=== PATIENT | male | born 1995 | race Caucasian/White ===

== ENCOUNTER 2018-02-09 08:48 | Emergency (ER) | payer BC ==
[2018-02-09] MEDS ORDERED: NORMAL SALINE 1000 ML 1,000 ML IV ONE ×3 (09:23→18:37)
[2018-02-09] MEDS ORDERED: ONDANSETRON HCL INJ/PF 4 MG/2 ML SDV IV ONE (09:33)
[2018-02-09] MEDS ORDERED: MORPHINE SULFATE 10 MG/ML INJ IV ONE (09:33)
[2018-02-09] MEDS ORDERED: KETOROLAC TROMETHAMINE INJ/PF 30 MG/1 ML SDV IV ONE ×2 (09:33→16:11)
[2018-02-09] MEDS ORDERED: RINGERS SOLUTION,LACTATED 1,000 ML IV ONE (09:34)
--- NOTE | 2018-02-09 09:37 | ER Document Report ---
ED Medical Screen (RME) - General Chief Complaint: Sickle Cell Crisis Stated Complaint: BACK PAIN Time Seen by Provider: 02/09/18 09:22 TRAVEL OUTSIDE OF THE [place] IN LAST 30 DAYS: No - HPI Notes: 02/09/18 09:37 Patient coming in with recently moved from [place] has history sickle cell disease and has been receiving blood transfusion once a month received a transfusion in November now having lower back pain denies any chest pain patient states pain similar to his crisis in the past. Father is at bedside - Related Data Allergies/Adverse Reactions: No Known Allergies Allergy (Unverified 02/09/18 08:50) Past Medical History - Social History Chew tobacco use (# tins/day): No Frequency of alcohol use: None Drug Abuse: None Renal/ Medical History: Denies: Hx Peritoneal Dialysis Review of Systems - Review of Systems Constitutional: Other - Back pain sickle cell pain Physical Exam - Vital signs Vitals: Temp Pulse Resp BP Pulse Ox 98.7 F 116 H 20 137/63 H 93 02/09/18 08:54 02/09/18 08:54 02/09/18 08:54 02/09/18 08:54 02/09/18 08:54 - Respiratory Respiratory status: No respiratory distress Chest status: Nontender Breath sounds: Normal Chest palpation: Normal - Cardiovascular Rhythm: Regular Heart sounds: Normal auscultation Course - Vital Signs Vital signs: Temp Pulse Resp BP Pulse Ox 98.7 F 116 H 20 137/63 H 93 02/09/18 08:54 02/09/18 08:54 02/09/18 08:54 02/09/18 08:54 02/09/18 08:54
[2018-02-09 09:49] LABS: ABSOLUTE RETICS # 0.297 10^6/uL (0.028-0.122); HEMATOCRIT 16.1 % (37.9-51.0); RETICULOCYTE COUNT (AUTO) 16.76 % (0.66-2.85)
[2018-02-09 09:54] LABS: MEAN CORPUSCULAR HEMOGLOBIN 31.5 pg (27.0-33.4); MEAN CORPUSCULAR HGB CONC 34.8 g/dL (32.0-36.0); MEAN CORPUSCULAR VOLUME 91 fl (80-97); PLATELET COUNT 308 10^3/uL (150-450); RED BLOOD COUNT 1.78 10^6/uL (4.35-5.55); RED CELL DISTRIBUTION WIDTH 24.6 % (11.5-14.0)
[2018-02-09 10:01] LABS: ANION GAP 15 (5-19); BLOOD UREA NITROGEN 11 mg/dL (7-20); CALCIUM 9.4 mg/dL (8.4-10.2); CARBON DIOXIDE 24 mmol/L (22-30); CHLORIDE 101 mmol/L (98-107); GLUCOSE 137 mg/dL (75-110); POTASSIUM 4.9 mmol/L (3.6-5.0); SODIUM 139.5 mmol/L (137-145)
--- NOTE | 2018-02-09 10:14 | RADIOLOGY REPORT (SQ) ---
EXAM DESCRIPTION: CHEST SINGLE VIEW COMPLETED DATE/TIME: 02/09/2018 10:02 am REASON FOR STUDY: sob COMPARISON: None. EXAM PARAMETERS: NUMBER OF VIEWS: One view. TECHNIQUE: Single frontal radiographic view of the chest acquired. RADIATION DOSE: NA LIMITATIONS: None. FINDINGS: LUNGS AND PLEURA: No opacities, masses or pneumothorax. No pleural effusion. MEDIASTINUM AND HILAR STRUCTURES: No masses. Contour normal. HEART AND VASCULAR STRUCTURES: Mild cardiomegaly BONES: No acute findings. HARDWARE: None in the chest. OTHER: No other significant finding. IMPRESSION: Mild cardiomegaly. No acute infiltrates TECHNICAL DOCUMENTATION: JOB ID: [id number] [employer]- All Rights Reserved Reading location - IP/workstation name: [email or web address]
[2018-02-09 10:24] LABS: ABSOLUTE LYMPHOCYTES# (MANUAL) 3.1 10^3/uL (0.5-4.7); ABSOLUTE MONOCYTES # (MANUAL) 2.6 10^3/uL (0.1-1.4); ABSOLUTE NEUTROPHILS# (MANUAL) 22.5 10^3/uL (1.7-8.2); BAND NEUTROPHILS % (MANUAL) 4 % (3-5); BASOPHILS % (MANUAL) 0 % (0-2); EOSINOPHILS % (MANUAL) 1 % (0-6); LYMPHOCYTES % (MANUAL) 11 % (13-45); METAMYELOCYTES % (MANUAL) 2 % (0); MONOCYTES % (MANUAL) 9 % (3-13); MYELOCYTES % (MANUAL) 3 % (0); SEGMENTED NEUTROPHILS % (MAN) 70 % (42-78); TOTAL CELLS COUNTED 100
[2018-02-09 10:25] LABS: HEMOGLOBIN 5.6 g/dL (13.5-17.0); WHITE BLOOD COUNT 28.3 10^3/uL (4.0-10.5)
[2018-02-09 10:27] LABS: ANISOCYTOSIS 3+; HYPOCHROMASIA 2+; NUCLEATED RED BLOOD CELLS 26 /100 WBC (0); POIKILOCYTOSIS 3+; SICKLE RED CELLS 2+
[2018-02-09 10:28] LABS: OVALOCYTES SLIGHT; PLATELET COMMENT ADEQUATE; POLYCHROMASIA 3+; SCHISTOCYTES SLIGHT; TOXIC GRANULATION SLIGHT
[2018-02-09] MEDS ORDERED: HYDROMORPHONE HCL INJ/PF 2 MG/ML AMPULE IV ONE ×3 (10:40→19:52)
[2018-02-09] MEDS ORDERED: DIPHENHYDRAMINE HCL 50 MG/ML VIAL IV ONE (10:40)
[2018-02-09] MEDS ORDERED: NORMAL SALINE 250 ML IV PRN (10:41)
[2018-02-09 12:19] LABS: APPEARANCE,URINE CLEAR; BILIRUBIN,URINE NEGATIVE (NEGATIVE); COLOR,URINE YELLOW; GLUCOSE, URINE NEGATIVE (NEGATIVE); KETONES,URINE NEGATIVE (NEGATIVE); LEUKOCYTE ESTERASE,URINE NEGATIVE (NEGATIVE); NITRITE,URINE NEGATIVE (NEGATIVE); PROTEIN,URINE NEGATIVE (NEGATIVE); URINE SPECIFIC GRAVITY 1.012; UROBILINOGEN,URINE NEGATIVE mg/dL (<2.0)
[2018-02-09 12:35] LABS: URINE AMPHETAMINES SCREEN NEGATIVE; URINE BARBITURATES SCREEN NEGATIVE; URINE BENZODIAZEPINES SCREEN NEGATIVE; URINE COCAINE SCREEN NEGATIVE; URINE MARIJUANA (THC) SCREEN NEGATIVE; URINE METHADONE SCREEN NEGATIVE; URINE PHENCYCLIDINE SCREEN NEGATIVE
--- NOTE | 2018-02-09 13:50 | PDOC CONSULTATION ---
Consultation Consult Date: 02/09/18 Attending physician:: susana History of Present Illness History of Present Illness: VIBHA ROWLAND is a 22 year old male who developed acute back pain and right knee pain last night. He has a known sickle cell disease. He says he gets monthly transfusion and had an acute crisis in [place] in November requiring an emergent apharesis. In the ER, he was noted to have a Hb of 5.6. He is in severe distress from severe back pain and knee pain. He is hypoxic saturating at 84% on room air improving to only 91-92% on 5 lpm of O2. Past Medical History Hematology: Reports: Sickle Cell Disease Social History Smoking Status: Never Smoker Family History Parental Family History Reviewed: Yes - no premature CAD Children Family History Reviewed: No Sibling(s) Family History Reviewed.: No Medication/Allergy Home Medications: Acetaminophen [Tylenol Extra Strength 500 mg Tablet] 1 tab PO Q8 PRN 02/09/18 Amoxicillin 250 mg PO BID 02/09/18 Cephalexin [Cephalexin 500 MG Capsule] 1 cap PO BID 02/09/18 Hydrocodone/Acetaminophen [Hydrocodone-Acetamin 10-325 mg] 1 mg PO PRN PRN 02/09 Ibuprofen 600 mg PO PRN PRN 02/09/18 Allergies/Adverse Reactions: No Known Allergies Allergy (Unverified 02/09/18 08:50) Review of Systems All systems: reviewed and no additional remarkable complaints except as stated - as mentioned in HPI Physical Exam Vital Signs: Temp Pulse Resp BP Pulse Ox 98.7 F 116 H 20 137/63 H 93 02/09/18 08:54 02/09/18 08:54 02/09/18 08:54 02/09/18 08:54 02/09/18 08:54 Intake & Output 02/08/18 02/09/18 02/10/18 06:59 06:59 06:59 Intake Total 1000 Balance 1000 Weight 127 lb 6.835 oz General appearance: PRESENT: severe distress Head exam: PRESENT: atraumatic, normocephalic Eye exam: PRESENT: conjunctiva pink, EOMI, PERRLA. ABSENT: scleral icterus Ear exam: PRESENT: normal external ear exam Mouth exam: PRESENT: moist, tongue midline Neck exam: ABSENT: carotid bruit, JVD, lymphadenopathy, thyromegaly Respiratory exam: PRESENT: clear to auscultation oxana. ABSENT: rales, rhonchi, wheezes Cardiovascular exam: PRESENT: RRR, tachycardia. ABSENT: diastolic murmur, rubs , systolic murmur Pulses: PRESENT: normal dorsalis pedis pul GI/Abdominal exam: PRESENT: normal bowel sounds, soft. ABSENT: distended, guarding, mass, organolmegaly, rebound, tenderness Rectal exam: PRESENT: deferred Musculoskeletal exam: PRESENT: tenderness - tenderness and swelling of right knee joint Neurological exam: PRESENT: alert, awake, oriented to person, oriented to place , oriented to time, oriented to situation, CN II-XII grossly intact. ABSENT: motor sensory deficit Results Laboratory Results: 02/09/18 09:35 02/09/18 09:35 02/09/18 02/09/18 02/09/18 09:35 09:35 09:35 WBC 28.3 H RBC 1.78 L Hgb 5.6 L Hct 16.1 L MCV 91 MCH 31.5 MCHC 34.8 RDW 24.6 H Plt Count 308 Seg Neutrophils % Not Reportable Lymphocytes % Not Reportable Monocytes % Not Reportable Eosinophils % Not Reportable Basophils % Not Reportable Absolute Neutrophils Not Reportable Absolute Lymphocytes Not Reportable Absolute Monocytes Not Reportable Absolute Eosinophils Not Reportable Absolute Basophils Not Reportable Retic Count (auto) 16.76 H Absolute Retic 0.297 H Sodium 139.5 Potassium 4.9 Chloride 101 Carbon Dioxide 24 Anion Gap 15 BUN 11 Creatinine 0.66 Est GFR ( Amer) > 60 Est GFR (Non-Af Amer) > 60 Glucose 137 H Calcium 9.4 Urine Color Urine Appearance Urine pH Ur Specific [place] Urine Protein Urine Glucose (UA) Urine Ketones Urine Blood Urine Nitrite Ur Leukocyte Esterase Urine WBC (Auto) Urine RBC (Auto) Blood Type O POSITIVE Antibody Screen NEGATIVE 02/09/18 11:53 WBC RBC Hgb Hct MCV MCH MCHC RDW Plt Count Seg Neutrophils % Lymphocytes % Monocytes % Eosinophils % Basophils % Absolute Neutrophils Absolute Lymphocytes Absolute Monocytes Absolute Eosinophils Absolute Basophils Retic Count (auto) Absolute Retic Sodium Potassium Chloride Carbon Dioxide Anion Gap BUN Creatinine Est GFR ( Amer) Est GFR (Non-Af Amer) Glucose Calcium Urine Color YELLOW Urine Appearance CLEAR Urine pH 5.0 Ur Specific [place] 1.012 Urine Protein NEGATIVE Urine Glucose (UA) NEGATIVE Urine Ketones NEGATIVE Urine Blood MODERATE H Urine Nitrite NEGATIVE Ur Leukocyte Esterase NEGATIVE Urine WBC (Auto) 1 Urine RBC (Auto) 2 Blood Type Antibody Screen Impressions: Chest X-Ray 02/09/18 09:37 IMPRESSION: Mild cardiomegaly. No acute infiltrates Assessment & Plan - Diagnosis (1) Hyperhemolytic sickle cell crisis Is this a current diagnosis for this admission?: Yes Plan: Patient is in hyperhemolytic crisis. Hemoglobin of 5.6. Unknown baseline. Patient is complaining of severe back pain and right knee pain. He is hypoxic at 84% on room air. Discussed in length with Dr. Israel. Hold blood transfusion at this time. Patient requires emergent apharesis due to hypoxia. Patient did say he had an emergent apharesis done in [place] in November. Give 2 mg of dilaudid and another liter of fluid bolus. Patient needs immediate transfer to [facility] for apharesis. - Time Time Spent: 30 to 50 Minutes
--- NOTE | 2018-02-09 14:33 | ER Document Report ---
ED General Pain - General Chief Complaint: Sickle Cell Crisis Stated Complaint: BACK PAIN Time Seen by Provider: 02/09/18 09:22 Notes: Patient with a history of sickle cell disease who is complaining of severe pain throughout his entire back and in all of his joints, especially his knees, that started last night. Patient recently moved here (in November) from [place] where he says he used to get a monthly transfusion of blood. Patient denies any recent illness. Denies sore throat, cough, chest congestion, nausea or vomiting or diarrhea, or any fevers. Patient has been on prophylactic amoxicillin 250 mg twice a day for most of his life. He also has apparently a residual pills of some cephalexin 500 mg that he supposed to take 2 twice a day for 7 days. Not sure what that is for as the patient has not seen a doctor recently. His medications also include ibuprofen 600 mg and hydrocodone 10/325 as well as plain Tylenol. Patient says he is not on folate or hydroxyurea because they do not work. Patient has had a partial splenectomy. TRAVEL OUTSIDE OF THE [place] IN LAST 30 DAYS: No - Related Data Allergies/Adverse Reactions: No Known Allergies Allergy (Unverified 02/09/18 08:50) Past Medical History - Social History Smoking Status: Never Smoker Chew tobacco use (# tins/day): No Frequency of alcohol use: None Drug Abuse: None Family History: Reviewed & Not Pertinent Patient has suicidal ideation: No Patient has homicidal ideation: No - Medical History Medical History: Other - Sickle cell disease. Past Surgical History: 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 Review of Systems - Review of Systems Notes: REVIEW OF SYSTEMS: CONSTITUTIONAL : Denies fever. Complains of generalized pain especially of the knees. EENT: Denies eye, ear, nose or mouth or throat pain or other symptoms. CARDIOVASCULAR: Denies chest pain except as part of his overall generalized pain. RESPIRATORY: Denies cough, chest congestion, or shortness of breath. GASTROINTESTINAL: Denies abdominal pain or nausea, vomiting, or diarrhea. GENITOURINARY: Denies difficulty or painful urinating, urinary frequency, blood in urine. MUSCULOSKELETAL: See HPI. SKIN: Denies rash or skin lesions. NEUROLOGICAL: Denies LOC or altered mental status. Denies headache. Denies sensory loss or motor deficits. ALL OTHER SYSTEMS REVIEWED AND NEGATIVE. Physical Exam - Vital signs Vitals: Temp Pulse Resp BP Pulse Ox 98.7 F 116 H 20 137/63 H 93 02/09/18 08:54 02/09/18 08:54 02/09/18 08:54 02/09/18 08:54 02/09/18 08:54 Interpretation: Normal - Notes Notes: PHYSICAL EXAMINATION: GENERAL: Appears to be uncomfortable.. HEAD: Atraumatic, normocephalic. EYES: Pupils equal round and reactive to light, extraocular movements intact. ENT: oropharynx clear without exudates. Moist mucous membranes. NECK: Normal range of motion, supple. LUNGS: Breath sounds clear and equal bilaterally. HEART: Regular rate and rhythm without murmurs. ABDOMEN: Soft, nontender. No guarding or rebound. No masses. BACK: Minimal tenderness throughout entire back. EXTREMITIES: Painful to move any of the joints. No abnormal swelling noted, however. NEUROLOGICAL: Normal speech. Normal sensory, motor, and reflex exams. Awake , alert, and oriented x3. PSYCH: Normal mood, normal affect. SKIN: Warm, dry, no rashes. Course - Re-evaluation Re-evalutation: 02/09/18 14:45 Patient's hemoglobin is 5.6. I had the patient typed and crossmatched to give a couple of units of packed cells. Room air O2 sat 84%. Spoke with hospitalist about admitting patient. Hospitalist consulted with forms builder who believe that the patient is experiencing a hemolytic crisis and that he should be transferred to a major treatment center with electrophoresis capabilities. Patient has been given sufficient pain medications to relieve his pain. Calls are being placed to [facility] to try to transfer patient there. Spoke with a Dr. Hercules and later a Dr. Banegas who both accepted the patient, pending bed assignment. 02/09/18 18:29 About 15 or 20 minutes ago, nurse made me aware the patient was more tachycardic and was diaphoretic. I went in the room and the patient is awake, anxious, holding his nonrebreather mask a few inches away from his mouth. He was, in fact, diaphoretic. He had just been spitting up. Listen to his lungs and they are clear. Abdomen is soft and nontender. Nurse says his heart rate had been up in the 140s, but is currently 118, by me at the bedside. O2 sat remains in the mid 90s. He seemed to settle down and the diaphoresis subsided. Have asked the nurse to give him another liter of saline. Said he would like to try to drink some juice. Transport is scheduled for 7:00. 02/09/18 18:46 Looks better. Heart rate down to 96. Blood pressure good. O2 sat in the upper 90s and patient is resting comfortably. 02/09/18 19:54 Once again complaining of pain. Another 1 mg of Dilaudid has been ordered IV. Vital signs recently showed a blood pressure 120/69, heart rate was 80, and O2 sat was 98%. Not diaphoretic. - Vital Signs Vital signs: Temp Pulse Resp BP Pulse Ox 98.7 F 105 H 39 H 168/67 H 90 L 02/09/18 08:54 02/09/18 14:09 02/09/18 18:13 02/09/18 18:13 02/09/18 18:13 - Laboratory Result Diagrams: 02/09/18 09:35 02/09/18 09:35 Laboratory results interpreted by me: 02/09/18 02/09/18 02/09/18 09:35 09:35 09:35 WBC 28.3 H RBC 1.78 L Hgb 5.6 L Hct 16.1 L RDW 24.6 H Lymphocytes % (Manual) 11 L Metamyelocytes % 2 H Myelocytes % 3 H Abs Neuts (Manual) 22.5 H Abs Monocytes (Manual) 2.6 H Retic Count (auto) 16.76 H Absolute Retic 0.297 H Glucose 137 H Total Bilirubin Direct Bilirubin AST Lactate Dehydrogenase 701 H Urine Blood Crossmatch See Detail 02/09/18 02/09/18 09:35 11:53 WBC RBC Hgb Hct RDW Lymphocytes % (Manual) Metamyelocytes % Myelocytes % Abs Neuts (Manual) Abs Monocytes (Manual) Retic Count (auto) Absolute Retic Glucose Total Bilirubin 4.5 H Direct Bilirubin 1.3 H AST 77 H Lactate Dehydrogenase Urine Blood MODERATE H Crossmatch - Diagnostic Test Radiology results interpreted by me: 02/09/18 14:52 Chest x-ray shows mild cardiomegaly. Otherwise, chest x-ray is normal. Discharge - Discharge Clinical Impression: Sickle cell disease, Sickle cell pain crisis Condition: Stable Disposition: [facility]
[2018-02-09 16:54] LABS: ALANINE AMINOTRANSFERASE 34 U/L (21-72); ALBUMIN 4.7 g/dL (3.5-5.0); ALKALINE PHOSPHATASE 94 U/L (38-126); ASPARTATE AMINO TRANSFERASE 77 U/L (17-59); BILIRUBIN,DIRECT 1.3 mg/dL (0.0-0.4); BILIRUBIN,TOTAL 4.5 mg/dL (0.2-1.3); TOTAL PROTEIN 7.9 g/dL (6.3-8.2)
[2018-02-09 18:38] VITALS: BP 168/67
[2018-02-10 09:36] LABS: PATH REVIEW PATHOLOGIST REVIEWED
== END 2018-02-09 20:15 | disposition short-term general hospital (02) ==
LOC: ER 08:48
DX: D57.00 Hb-SS disease with crisis, unspecified (principal); M54.9 Dorsalgia, unspecified
CPT/HCPCS: 96376; 99285; 96361; 96374; 96375; 86900; 86901; 36415; 86850; 83615; 85025; 85045; 80076; 80048; 81001; 80307; 86920; 86902 ×4; 71045; J1200; J1885; J2270; J1170; J2405; J7030; J7120

== ENCOUNTER 2018-07-20 22:49 | Inpatient (IN) | payer BC, OTHER ==
[2018-07-20] MEDS ORDERED: HYDROMORPHONE HCL INJ/PF 2 MG/ML AMPULE IV ONE (23:58)
--- NOTE | 2018-07-21 00:01 | ER Document Report ---
ED General - General Chief Complaint: Sickle Cell Crisis Stated Complaint: SICKLE CELL CRISIS Time Seen by Provider: 07/20/18 23:51 Notes: Patient is a very pleasant 23-year-old male with a history of sickle cell disease who presents with complaint of severe pain in his back and going up the spine and into his neck. No weakness or numbness into extremities. He said he started have a little bit pain going into his chest. No difficulty breathing. No abdominal pain. No dysuria. No fevers. Took an oxycodone at home which did not help his pain and his pain continued to worsen and therefore he came to the ER. He does have history of acute chest syndrome last year. At that time he was seen here and then transferred. Says this does not really feel like that at this time. He had a partial splenectomy. He still has his gallbladder. No other abdominal surgeries. He is followed by cancer clinic in [place]. TRAVEL OUTSIDE OF THE [place] IN LAST 30 DAYS: No - Related Data Allergies/Adverse Reactions: No Known Allergies Allergy (Unverified 02/09/18 08:50) Past Medical History - Social History Smoking Status: Never Smoker Frequency of alcohol use: None Drug Abuse: None Family History: Reviewed & Not Pertinent Renal/ Medical History: Denies: Hx Peritoneal Dialysis Past Surgical History: 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 Review of Systems - Review of Systems Notes: My Normal Review Basic REVIEW OF SYSTEMS: CONSTITUTIONAL : Denies fever, chills, or sweats. Denies recent illness. EENT: Denies eye, ear, throat, or mouth pain or symptoms. Denies nasal or sinus congestion. CARDIOVASCULAR: Mild chest pain. RESPIRATORY: Denies cough, cold, or chest congestion. Denies shortness of breath, difficulty breathing, or wheezing. GASTROINTESTINAL: Denies abdominal pain. Denies nausea, vomiting, or diarrhea. GENITOURINARY: Denies difficulty urinating, painful urination, burning, f requency, or blood in urine. MUSCULOSKELETAL: Severe back pain SKIN: Denies rash or skin lesions. HEMATOLOGIC : Sickle cell disease NEUROLOGICAL: Denies altered mental status or loss of consciousness. Denies headache. Denies weakness or paralysis or loss of use of either side. Denies problems with gait or speech. Denies sensory or motor loss. ALL OTHER SYSTEMS REVIEWED AND NEGATIVE. Physical Exam - Vital signs Vitals: Temp Pulse Resp BP Pulse Ox 97.9 F 72 20 111/50 L 99 07/20/18 22:59 07/20/18 22:59 07/20/18 22:59 07/20/18 22:59 07/20/18 22:59 - Notes Notes: General Appearance: Well nourished, alert, cooperative, no acute distress, severe obvious discomfort. Vitals: reviewed, See vital signs table. Head: no swelling or tenderness to the head Eyes: PERRL, EOMI, Conjuctiva clear Mouth: No decreasd moisture Neck: Supple, no neck swelling Lungs: No wheezing, No rales, No rhonci, No accessory muscle use, good air exchange bilaterally. Heart: Normal rate, Regular rythm, No murmur, no rub Back: No redness or swelling to the back or neck. Abdomen: Normal BS, soft, No rigidity, No abdominal tenderness, No guarding, no rebound, no abdominal masses, no organomegaly Extremities: strength 5/5 in all extremities, good pulses in all extremities, no swelling or tenderness in the extremities, no edema. Skin: warm, dry, appropriate color, no rash Neuro: speech clear, oriented x 3, normal affect, responds appropriately to questions. Course - Re-evaluation Re-evalutation: 07/21/18 00:39 Patient still have a lot of pain after he was given 1 mg Dilaudid. I will give him another dose at that site higher dose. I have ordered IV fluids. Laboratory evaluation pending. 07/21/18 01:34 Reevaluation patient says his pain is improved even though he still looks like he is having some pain. He says that he does not want any further pain medicine at this time. Still waiting troponin come back. Says he still has some slight chest pain. Chest x-ray is normal appearing. 07/21/18 01:58 Patient stood up to go walk and urinate now he started having a lot of pain in his low back and. I will order him some fentanyl. I feel that he should be admitted due to his recurring pain. His hemoglobin is at his baseline is 7.1. White blood cell count a little bit elevated. Is not have a fever and I do not see a source of infection at this time. The only thing pending at this time is urinalysis. He did have a little bit chest pain therefore I did go forward the troponin which is negative. I will speak with hospitalist about potential for admission. She has no abdominal pain. I do not suspect acute chest syndrome as the patient has normal oxygenation with no obstructive process on the chest x- ray and no fever. 07/21/18 02:10 I did discuss case with Dr. Lock who agrees to evaluate the patient for admission. At this time patient's findings consistent with that of a acute pain crisis. I do not suspect acute chest syndrome as the patient has normal oxygenation with no infiltrative process on x-ray and no fever. Patient's abdomen is nontender. Vital signs are stable. Dictation of this chart was performed using voice recognition software; therefore, there may be some unintended grammatical errors. - Vital Signs Vital signs: Temp Pulse Resp BP Pulse Ox 97.9 F 72 20 111/50 L 99 07/20/18 22:59 07/20/18 22:59 07/20/18 22:59 07/20/18 22:59 07/20/18 22:59 - Laboratory Result Diagrams: 07/21/18 00:22 07/21/18 00:22 Laboratory results interpreted by me: 07/21/18 07/21/18 00:22 00:22 WBC 21.0 H RBC 2.15 L Hgb 7.1 L Hct 20.9 L RDW 30.0 H Plt Count 461 H Seg Neuts % (Manual) 89 H Band Neutrophils % 1 L Lymphocytes % (Manual) 4 L Abs Neuts (Manual) 18.9 H Retic Count (auto) 11.36 H Absolute Retic 0.244 H Sodium 134.4 L Glucose 113 H Total Bilirubin 3.5 H Direct Bilirubin 0.6 H Total Protein 8.5 H - EKG Interpretation by Me Additional EKG results interpreted by me: 07/21/18 00:51 EKG is reviewed and interpreted by me. EKG shows sinus rhythm with a rate of 78 bpm. Patient does have some mild ST segment elevation in leads V2 and V3 that is mostly concave up with some J-point elevation. No reciprocal ST segment depressions. This is more consistent with that of early repolarization abnormality. No old EKG available for comparison. OH interval, QRS duration, QT intervals are within normal range. Discharge - Discharge Clinical Impression: Sickle cell pain crisis Sickle cell anemia Qualifiers: Sickle-cell associated disorders: with unspecified crisis Qualified Code(s): D57.00 - Hb-SS disease with crisis, unspecified; D57.0 - Hb-SS disease with cr dimitry Condition: Stable Disposition: ADMITTED OBSERVATION Admitting Provider: Hayde (Hospitalist) Unit Admitted: Telemetry
[2018-07-21] MEDS ORDERED: HYDROMORPHONE HCL INJ/PF 2 MG/ML AMPULE IV ONE ×2 (00:39→07:15)
--- NOTE | 2018-07-21 00:52 | RADIOLOGY REPORT (SQ) ---
EXAM DESCRIPTION: XR CHEST 1 VIEW COMPLETED DATE/TME: 07/20/2018 23:58 CLINICAL HISTORY: 23 years, Male, sickle cell pain COMPARISON: None. NUMBER OF VIEWS: 1 TECHNIQUE: Portable chest LIMITATIONS: None. FINDINGS: Heart size normal. Lungs clear. No pneumothorax IMPRESSION: Negative chest copyright 2010 [employer]- All Rights Reserved
[2018-07-21] MEDS: NORMAL SALINE 1000 ML 1,000 ML IV PRN ×2 (00:55→02:18)
[2018-07-21 00:57] LABS: ABSOLUTE RETICS # 0.244 10^6/uL (0.028-0.122); HEMATOCRIT 20.9 % (37.9-51.0); MEAN CORPUSCULAR HEMOGLOBIN 33.2 pg (27.0-33.4); MEAN CORPUSCULAR HGB CONC 34.1 g/dL (32.0-36.0); MEAN CORPUSCULAR VOLUME 97 fl (80-97); PLATELET COUNT 461 10^3/uL (150-450); RED BLOOD COUNT 2.15 10^6/uL (4.35-5.55); RETICULOCYTE COUNT (AUTO) 11.36 % (0.66-2.85)
[2018-07-21 01:23] LABS: HEMOGLOBIN 7.1 g/dL (13.5-17.0)
[2018-07-21 01:25] LABS: ABSOLUTE LYMPHOCYTES# (MANUAL) 0.8 10^3/uL (0.5-4.7); ABSOLUTE MONOCYTES # (MANUAL) 1.3 10^3/uL (0.1-1.4); ABSOLUTE NEUTROPHILS# (MANUAL) 18.9 10^3/uL (1.7-8.2); BAND NEUTROPHILS % (MANUAL) 1 % (3-5); BASOPHILS % (MANUAL) 0 % (0-2); EOSINOPHILS % (MANUAL) 0 % (0-6); LYMPHOCYTES % (MANUAL) 4 % (13-45); MONOCYTES % (MANUAL) 6 % (3-13); SEGMENTED NEUTROPHILS % (MAN) 89 % (42-78); TOTAL CELLS COUNTED 100
[2018-07-21 01:27] LABS: ALANINE AMINOTRANSFERASE 25 U/L (21-72); ALKALINE PHOSPHATASE 107 U/L (38-126); ANION GAP 12 (5-19); ASPARTATE AMINO TRANSFERASE 41 U/L (17-59); BILIRUBIN,DIRECT 0.6 mg/dL (0.0-0.4); BILIRUBIN,TOTAL 3.5 mg/dL (0.2-1.3); BLOOD UREA NITROGEN 11 mg/dL (7-20); CALCIUM 9.8 mg/dL (8.4-10.2); CARBON DIOXIDE 22 mmol/L (22-30); CHLORIDE 100 mmol/L (98-107); GLUCOSE 113 mg/dL (75-110); POTASSIUM 4.2 mmol/L (3.6-5.0); SODIUM 134.4 mmol/L (137-145); TOTAL PROTEIN 8.5 g/dL (6.3-8.2)
[2018-07-21 01:28] LABS: ANISOCYTOSIS 4+; HYPOCHROMASIA 2+; POIKILOCYTOSIS 3+; POLYCHROMASIA 3+; SICKLE RED CELLS 2+; SPHEROCYTES 2+
[2018-07-21 01:29] LABS: NUCLEATED RED BLOOD CELLS 12 /100 WBC (0)
[2018-07-21 01:30] LABS: PLATELET COMMENT ADEQUATE
[2018-07-21] MEDS ORDERED: FENTANYL CITRATE INJ/PF 100 MCG/2 ML AMPUL IV ONE (01:58)
[2018-07-21 02:12] LABS: APPEARANCE,URINE CLEAR; BILIRUBIN,URINE NEGATIVE (NEGATIVE); COLOR,URINE YELLOW; GLUCOSE, URINE NEGATIVE (NEGATIVE); KETONES,URINE NEGATIVE (NEGATIVE); LEUKOCYTE ESTERASE,URINE NEGATIVE (NEGATIVE); NITRITE,URINE NEGATIVE (NEGATIVE); PROTEIN,URINE NEGATIVE (NEGATIVE); URINE SPECIFIC GRAVITY 1.011
[2018-07-21] MEDS ORDERED: HYDROMORPHONE HCL INJ/PF 2 MG/ML AMPULE IV PRN ×2 (03:12→03:15)
[2018-07-21] MEDS: HYDROMORPHONE HCL INJ/PF 2 MG/ML AMPULE IV PRN ×8 (03:30→20:36)
--- NOTE | 2018-07-21 03:58 | PDOC H&P ---
History of Present Illness Admission Date/PCP: 07/21/18 02:15 Patient complains of: back pain and milder chest pain History of Present Illness: VIBHA YANG is a 23 year old man with sickle cell disease who manages his pain at home, and has been having escalating pain recently. He works at [employer], his father thinks he gets dehydrated due to the strenuous work. Pain was not manageable at home but not as severe as it has gotten in the recent past and so he came to [facility]. He goes to [facility] where his respiratory therapist is when his pain is more severe and when he has significant chest pain. In the ED is hgb is found to be at his baseline (about 7), his CXR is not concerning, trop is negative, pain is improving with IV opiates. He is admitted to the hospitalists with SCD and acute pain episode. Past Medical History Cardiac Medical History: Denies: Coronary Artery Disease, Myocardial Infarction Pulmonary Medical History: Denies: Asthma, Chronic Obstructive Pulmonary Disease (COPD), Respiratory Failure EENT Medical History: Denies: None Neurological Medical History: Denies: Multiple Sclerosis, Seizures Endocrine Medical History: Denies: Diabetes Mellitus Type 2, Obesity Renal/ Medical History: Denies: Chronic Kidney Disease Malignancy Medical History: Reports: None GI Medical History: Denies: Peptic Ulcer Disease Musculoskeltal Medical History: Denies: Arthritis, Fibromyalgia Skin Medical History: Denies: Eczema, Psoriasis Psychiatric Medical History: Denies: Alcohol Dependency, Depression, General Anxiety Disorder, Substance Abuse, Tobacco Dependency Traumatic Medical History: Reports: None Hematology: Reports: Sickle Cell Disease Infectious Medical History: Reports: None Past Surgical History Past Surgical History: 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 Social History Information Source: Patient, Parent Lives with: Parents Smoking Status: Never Smoker Frequency of Alcohol Use: None Hx Recreational Drug Use: No Hx Prescription Drug Abuse: No Past Social History Note: Recently moved from living with his mom in [place], [place] to [facility] to live with his dad. Works at [employer] locally. - Advance Directive Resuscitation Status: Full Code Surrogate healthcare decision maker:: father Jayce Yang is health care proxy, cell: [phone] Family History Parental Family History Reviewed: Yes - mom and dad have sickel cell trait Children Family History Reviewed: NA Sibling(s) Family History Reviewed.: Yes - sister with SCD Medication/Allergy Home Medications: Acetaminophen [Tylenol Extra Strength 500 mg Tablet] 1 tab PO Q8 PRN 02/09/18 Amoxicillin 250 mg PO BID 02/09/18 Cephalexin [Cephalexin 500 MG Capsule] 1 cap PO BID 02/09/18 Hydrocodone/Acetaminophen [Hydrocodone-Acetamin 10-325 mg] 1 mg PO PRN PRN 01/17 09/02 Ibuprofen 600 mg PO PRN PRN 02/09/18 Allergies/Adverse Reactions: No Known Allergies Allergy (Unverified 02/09/18 08:50) Review of Systems ROS unobtainable: Other - pt had just received fentanyl 50 mcg when i was evalu ating him and was dozing off, I couldnt collect full ROS Constitutional: ABSENT: fever(s) Nose, Mouth, and Throat: ABSENT: headache(s), mouth pain Cardiovascular: PRESENT: chest pain. ABSENT: dyspnea on exertion, edema Respiratory: ABSENT: dyspnea, hemoptysis Gastrointestinal: ABSENT: abdominal pain, diarrhea, nausea, vomiting Genitourinary: ABSENT: difficulty urinating, dysuria Musculoskeletal: PRESENT: back pain. ABSENT: deformity, joint swelling Integumentary: ABSENT: lesions, pruritus, wounds Neurological: ABSENT: confusion, focal weakness, frequent falls Psychiatric: ABSENT: anxiety, depression Hematologic/Lymphatic: ABSENT: easy bleeding Physical Exam Vital Signs: Temp Pulse Resp BP Pulse Ox 97.9 F 72 20 113/53 L 99 07/20/18 22:59 07/20/18 22:59 07/21/18 02:01 07/21/18 02:00 07/21/18 02:01 Intake & Output 07/19/18 07/20/18 07/21/18 06:59 06:59 06:59 Intake Total 1999 Balance 1999 Weight 58.9 kg General appearance: PRESENT: cooperative, mild distress Head exam: PRESENT: atraumatic, normocephalic Eye exam: ABSENT: conjunctival injection, scleral icterus Ear exam: PRESENT: normal external ear exam Mouth exam: PRESENT: dry mucosa Neck exam: ABSENT: tenderness Respiratory exam: PRESENT: clear to auscultation oxana, unlabored. ABSENT: accessory muscle use, rales, retraction, rhonchi, wheezes Cardiovascular exam: PRESENT: RRR. ABSENT: systolic murmur Pulses: PRESENT: normal radial pulses, normal dorsalis pedis pul GI/Abdominal exam: PRESENT: normal bowel sounds, soft. ABSENT: distended, tenderness Rectal exam: PRESENT: deferred Gentrourinary exam: ABSENT: indwelling catheter Musculoskeletal exam: PRESENT: normal inspection. ABSENT: deformity Neurological exam: PRESENT: oriented to person, oriented to place, oriented to situation, CN II-XII grossly intact. ABSENT: altered Psychiatric exam: ABSENT: anxious, depressed Skin exam: PRESENT: dry, intact, warm Results Laboratory Results: 07/21/18 00:22 07/21/18 00:22 07/21/18 07/21/18 07/21/18 00:22 00:22 02:00 WBC 21.0 H RBC 2.15 L Hgb 7.1 L Hct 20.9 L MCV 97 MCH 33.2 MCHC 34.1 RDW 30.0 H Plt Count 461 H Seg Neutrophils % Not Reportable Lymphocytes % Not Reportable Monocytes % Not Reportable Eosinophils % Not Reportable Basophils % Not Reportable Absolute Neutrophils Not Reportable Absolute Lymphocytes Not Reportable Absolute Monocytes Not Reportable Absolute Eosinophils Not Reportable Absolute Basophils Not Reportable Retic Count (auto) 11.36 H Absolute Retic 0.244 H Sodium 134.4 L Potassium 4.2 Chloride 100 Carbon Dioxide 22 Anion Gap 12 BUN 11 Creatinine 0.64 Est GFR ( Amer) > 60 Est GFR (Non-Af Amer) > 60 Glucose 113 H Calcium 9.8 Total Bilirubin 3.5 H AST 41 ALT 25 Alkaline Phosphatase 107 Total Protein 8.5 H Albumin 5.0 Urine Color YELLOW Urine Appearance CLEAR Urine pH 6.0 Ur Specific [place] 1.011 Urine Protein NEGATIVE Urine Glucose (UA) NEGATIVE Urine Ketones NEGATIVE Urine Blood SMALL H Urine Nitrite NEGATIVE Ur Leukocyte Esterase NEGATIVE Urine WBC (Auto) 1 Urine RBC (Auto) 1 07/21/18 00:00 Troponin I < 0.012 Impressions: Chest X-Ray 07/20/18 23:58 IMPRESSION: Negative chest copyright 2011 [employer]- All Rights Reserved Assessment and Plan - Diagnosis (1) Sickle cell pain crisis Is this a current diagnosis for this admission?: Yes Plan: patient does not know his pain med doses and cant remember all of the meds he takes, he tells me he takes 2 pills of hydroxyurea daily (prob 2 x 500 mg tabls) so I ordered 1000 daily. . We will await med rec for remainder of meds. He is post partial splenectomy and prob on antibiotics. He has gotten dilaudid 1 mg x 1 and that was not very effective, then got dilaudid 1.5 mg x 1 and that was more effective. He then got fentanyl 50 mcg x 1 that was effective for just a few minutes. I have ordered dilaudid 1.5 mg q 2 hrs prn pain and we can uptitrate if needed. Has mild CP, trop x 1 is neg and one ordered for with am labs to follow closely. He will be on tele. (2) Dehydration Is this a current diagnosis for this admission?: Yes Plan: Got 2 L NS in ED, now making urine, lips and mucous membranes dry, will start 1/2 NS at 100mL per hour and encourage good po intake. (3) Sickle cell anemia Qualifiers: Sickle-cell associated disorders: with unspecified crisis Qualified Code(s): D57.00 - Hb-SS disease with crisis, unspecified; D57.0 - Hb-SS disease with crisis Is this a current diagnosis for this admission?: Yes Plan: Hgb baseline at 7. Monitor. Hydroxyurea started. No transfusion indicated now. DVT prophylaxis started. (4) Hypoxemia Is this a current diagnosis for this admission?: Yes Plan: after receiving fentanyl he was slightly hypoxemic in high 80's, with deep breaths on 2L he=is sats recovered. I have ordered continuous pulse oximetry and placed him on the IMCU [place] for close monitoring. - Time Time Spent with patient: 35 or more minutes Anticipated discharge: Home - Inpatient Certification Based on my medical assessment, after consideration of the patient's comorbidities, presenting symptoms, or acuity I expect that the services needed warrant INPATIENT care.: Yes I certify that my determination is in accordance with my understanding of Medicare's requirements for reasonable and necessary INPATIENT services [42 CFR 412.3e].: Yes Medical Necessity: Failure to Improve With Outpatient Therapy, Significant Comorbidiites Make Outpatient Treatment Too Risky, Need Close Monitoring Due to Risk of Patient Decompensation, Need For IV Fluids, Need For Continuous Telemetry Monitoring, Need for Pain Control, Risk of Complication if Not Cared For in Hospital
[2018-07-21] MEDS: 1/2 NORMAL SALINE 1,000 ML IV PRN ×3 (04:37→20:46)
[2018-07-21] MEDS: HEPARIN SOD (PORCINE) 5,000 UNIT/ML 1 ML SYRINGE SUBCUT SCH ×4 (05:37→21:38)
--- NOTE | 2018-07-21 07:49 | EKG REPORT ---
SEVERITY:- ABNORMAL ECG - SINUS RHYTHM PROBABLE LEFT ATRIAL ABNORMALITY LEFT VENTRICULAR HYPERTROPHY INFERIOR Q WAVES, PROBABLY NORMAL VARIATION ST ELEV, PROBABLE NORMAL EARLY REPOL PATTERN : Confirmed by: Percy Murphy MD 21-Jul-2018 07:48:15
[2018-07-21] MEDS: HYDROXYUREA 500 MG CAPSULE PO SCH (09:06)
[2018-07-21 14:06] LABS: APPEARANCE,URINE CLEAR; BILIRUBIN,URINE NEGATIVE (NEGATIVE); COLOR,URINE YELLOW; GLUCOSE, URINE NEGATIVE (NEGATIVE); KETONES,URINE NEGATIVE (NEGATIVE); LEUKOCYTE ESTERASE,URINE NEGATIVE (NEGATIVE); NITRITE,URINE NEGATIVE (NEGATIVE); PROTEIN,URINE NEGATIVE (NEGATIVE); UROBILINOGEN,URINE NEGATIVE mg/dL (<2.0)
--- NOTE | 2018-07-21 16:23 | Progress Note ---
Provider Note Provider Note: 23 y.o. M with a [facility] sickle cell disease. Normally treated/followed by bean viner and provided. Patient presented with chest pain. EKG normal. Laboratory studies revealed leukocytosis (WBC 21), anemia (Hgb 7.1 patient's baseline), elevated reticulocyte count and absolute reticulocyte count. Agree with nocturnal hospitalist plan. 1. Sickle cell pain crisis: dilaudid 2mg IV q2h PRN. IV hydration. Supplemental oxygen via nasal cannula. 2. Dehydration: continuous IV 3. Sickle cell anemia: Hgb 7.1. This is patient's baseline. Continue home dose hydroxyurea 4. Hypoxemia: Slightly hypoxic after receiving IV narcotics. Continue supplemental oxygen via nasal cannula for SPO2>92%
[2018-07-22] MEDS: HYDROMORPHONE HCL INJ/PF 2 MG/ML AMPULE IV PRN ×6 (01:05→16:21)
[2018-07-22] MEDS: HEPARIN SOD (PORCINE) 5,000 UNIT/ML 1 ML SYRINGE SUBCUT SCH ×3 (05:51→21:13)
[2018-07-22 06:11] LABS: HEMATOCRIT 15.9 % (37.9-51.0); MEAN CORPUSCULAR HEMOGLOBIN 34.1 pg (27.0-33.4); MEAN CORPUSCULAR HGB CONC 35.5 g/dL (32.0-36.0); MEAN CORPUSCULAR VOLUME 96 fl (80-97); PLATELET COUNT 303 10^3/uL (150-450); RED BLOOD COUNT 1.66 10^6/uL (4.35-5.55); RED CELL DISTRIBUTION WIDTH 28.8 % (11.5-14.0)
[2018-07-22 06:25] LABS: ALANINE AMINOTRANSFERASE 29 U/L (21-72); ALBUMIN 3.7 g/dL (3.5-5.0); ALKALINE PHOSPHATASE 113 U/L (38-126); ANION GAP 11 (5-19); ASPARTATE AMINO TRANSFERASE 68 U/L (17-59); BILIRUBIN,TOTAL 5.2 mg/dL (0.2-1.3); BLOOD UREA NITROGEN 9 mg/dL (7-20); CALCIUM 8.7 mg/dL (8.4-10.2); CARBON DIOXIDE 23 mmol/L (22-30); CHLORIDE 97 mmol/L (98-107); GLUCOSE 105 mg/dL (75-110); POTASSIUM 4.1 mmol/L (3.6-5.0); SODIUM 130.6 mmol/L (137-145); TOTAL PROTEIN 6.8 g/dL (6.3-8.2)
[2018-07-22 06:42] LABS: HEMOGLOBIN 5.6 g/dL (13.5-17.0)
[2018-07-22 06:46] LABS: WHITE BLOOD COUNT 19.7 10^3/uL (4.0-10.5)
[2018-07-22] MEDS: 1/2 NORMAL SALINE 1,000 ML IV PRN ×2 (07:36→21:04)
[2018-07-22] MEDS ORDERED: NORMAL SALINE 250 ML IV PRN ×2 (08:08)
[2018-07-22] MEDS: HYDROXYUREA 500 MG CAPSULE PO SCH (10:11)
[2018-07-22] MEDS ORDERED: FENTANYL 50 MCG/HR PATCH.TD72 TD SCH (11:00)
--- NOTE | 2018-07-22 19:35 | PDOC PROGRESS REPORT ---
Subjective Progress Note for:: 07/22/18 Subjective:: 23 y.o. M with a H sickle cell disease admitted to [facility] for sickle cell crisis, his presenting complaint was chest pain. Originally told admitting hospitalist that he is treated/followed by explosive operator bomb at [facility], but this information seems to be false. Today, the patient reported he does not have a explosive operator bomb and he usually travels around "to any of the local hospitals" when he is in crisis. The patient was seen this morning on rounds, he is resting comfortably in bed on nasal cannula. He is arousable but quickly falls asleep multiple times during the interview. The patient states he no longer has chest pain, that it is now in his forearms and lower legs. Pain is reproduced with palpation. LCTA. S1S2. No joint deformities. No peripheral edema. Hgb 5.5 today, patient's baseline is 7.0. Plan for transfusion today. Nursing staff reports the patient becomes briefly hypoxic when given his IV dilaudid 2mg. Will change regimen to include a fentanyl patch and decrease PRN dilaudid. Reason For Visit: SICKLE CELL DX WITH ACUTE PAIN EPISODE Physical Exam Vital Signs: Temp Pulse Resp BP Pulse Ox 99.1 F 113 H 20 119/62 97 07/22/18 18:42 07/22/18 18:42 07/22/18 18:42 07/22/18 18:42 07/22/18 18:42 Pulse Oximeter Continuous Start: 07/21/18 03:17 Freq: RTQ4 Status: Active Protocol: Document 07/22/18 16:00 [facility] (Rec: 07/22/18 17:00 [facility] [id number]) Pulse Oximetry Assessment Oxygen Saturation (92-100) 96 Oxygen Flow Rate (L/min) 3 Oxygen Delivery Method Nasal Cannula Fraction of Inspired Oxygen (FIO2) 32 Equipment Usage Equipment in Use Continuous SpO2 Machine # 8 Intake & Output 07/21/18 07/22/18 07/23/18 06:59 06:59 06:59 Intake Total 1999 9839 0736 Output Total 4318 360 Balance 1999 6788 962 Weight 63.1 kg 60.5 kg General appearance: PRESENT: no acute distress, thin, well-developed, well- nourished Head exam: PRESENT: atraumatic, normocephalic Eye exam: PRESENT: conjunctiva pink, EOMI, PERRLA. ABSENT: scleral icterus Ear exam: PRESENT: normal external ear exam Mouth exam: PRESENT: moist, tongue midline Neck exam: ABSENT: carotid bruit, JVD, lymphadenopathy, thyromegaly Respiratory exam: PRESENT: clear to auscultation oxana. ABSENT: chest wall tenderness, rales, rhonchi, wheezes Cardiovascular exam: PRESENT: RRR, +S1, +S2. ABSENT: diastolic murmur, rubs, systolic murmur Pulses: PRESENT: normal radial pulses, normal dorsalis pedis pul Vascular exam: PRESENT: normal capillary refill GI/Abdominal exam: PRESENT: normal bowel sounds, soft. ABSENT: distended, guarding, mass, organolmegaly, rebound, tenderness Rectal exam: PRESENT: deferred Extremities exam: PRESENT: full ROM, tenderness - bilateral forearms and lower extremities. ABSENT: calf tenderness, clubbing, pedal edema Neurological exam: PRESENT: alert, awake, oriented to person, oriented to place, oriented to time, oriented to situation Psychiatric exam: PRESENT: appropriate affect, normal mood Skin exam: PRESENT: dry, intact, warm. ABSENT: cyanosis, rash Results Laboratory Results: 07/22/18 05:08 07/22/18 05:08 07/22/18 07/22/18 07/22/18 05:08 05:08 08:38 WBC 19.7 H RBC 1.66 L Hgb 5.6 L Hct 15.9 L MCV 96 MCH 34.1 H MCHC 35.5 RDW 28.8 H Plt Count 303 Sodium 130.6 L Potassium 4.1 Chloride 97 L Carbon Dioxide 23 Anion Gap 11 BUN 9 Creatinine 0.56 Est GFR ( Amer) > 60 Est GFR (Non-Af Amer) > 60 Glucose 105 Calcium 8.7 Total Bilirubin 5.2 H AST 68 H ALT 29 Alkaline Phosphatase 113 Total Protein 6.8 Albumin 3.7 Blood Type O POSITIVE Antibody Screen NEGATIVE 07/21/18 07/22/18 00:00 05:08 Troponin I < 0.012 0.058 Impressions: Chest X-Ray 07/20/18 23:58 IMPRESSION: Negative chest copyright 2011 [employer]- All Rights Reserved Status: Imported from PACS Assessment and Plan - Diagnosis (1) Sickle cell pain crisis Is this a current diagnosis for this admission?: Yes Plan: Add Fentanyl patch for continuous analgesia Decreased dilaudid from 2mg to 1mg IV q2h PRN. IV hydration. Supplemental oxygen via nasal cannula. Anemic today, Hgb 5.5, plan to transfuse (2) Dehydration Is this a current diagnosis for this admission?: Yes Plan: Continue NS at 125mL/hr (3) Hypoxemia Is this a current diagnosis for this admission?: Yes Plan: Supplemental O2 per NC for SPO2>93% Continuous pulse ox (4) Sickle cell anemia Qualifiers: Sickle-cell associated disorders: with unspecified crisis Qualified Code(s): D57.00 - Hb-SS disease with crisis, unspecified; D57.0 - Hb-SS disease with crisis Is this a current diagnosis for this admission?: Yes Plan: Hgb baseline 7, down to 5.5 today Transfuse 2U PRBC today Hydroxyurea started. DVT prophylaxis started. - Time Time Spent with patient: 15-24 minutes Medications reviewed and adjusted accordingly: Yes Anticipated discharge: Home Within: within 72 hours - Inpatient Certification Based on my medical assessment, after consideration of the patient's comorbidities, presenting symptoms, or acuity I expect that the services needed warrant INPATIENT care.: Yes I certify that my determination is in accordance with my understanding of Medicare's requirements for reasonable and necessary INPATIENT services [42 CFR 412.3e].: Yes Medical Necessity: Need for Pain Control - Plan Summary Plan Summary: DISCUSSED PATIENT'S CASE WITH DR. KIM. IF PATIENT DEVELOPS CHEST PAIN CONSIDER TRANSFER TO OUTSIDE HOSPITAL FOR PLASMAPHARESIS. OTHERWISE, PATIENT WILL REMAIN HERE FOR PAIN CONTROL.
[2018-07-22 23:19] LABS: HEMATOCRIT 20.6 % (37.9-51.0); MEAN CORPUSCULAR HEMOGLOBIN 32.1 pg (27.0-33.4); MEAN CORPUSCULAR HGB CONC 35.7 g/dL (32.0-36.0); PLATELET COUNT 251 10^3/uL (150-450); RED BLOOD COUNT 2.29 10^6/uL (4.35-5.55); RED CELL DISTRIBUTION WIDTH 24.3 % (11.5-14.0); WHITE BLOOD COUNT 14.9 10^3/uL (4.0-10.5)
[2018-07-22 23:25] LABS: HEMOGLOBIN 7.3 g/dL (13.5-17.0)
[2018-07-22 23:28] LABS: MEAN CORPUSCULAR VOLUME 90 fl (80-97)
[2018-07-22 23:47] LABS: ABSOLUTE LYMPHOCYTES# (MANUAL) 1.6 10^3/uL (0.5-4.7); ABSOLUTE NEUTROPHILS# (MANUAL) 12.2 10^3/uL (1.7-8.2); BASOPHILS % (MANUAL) 0 % (0-2); EOSINOPHILS % (MANUAL) 0 % (0-6); LYMPHOCYTES % (MANUAL) 11 % (13-45); METAMYELOCYTES % (MANUAL) 1 % (0); MONOCYTES % (MANUAL) 7 % (3-13); NUCLEATED RED BLOOD CELLS 33 /100 WBC (0); SEGMENTED NEUTROPHILS % (MAN) 80 % (42-78); TOTAL CELLS COUNTED 100
[2018-07-22 23:48] LABS: PLATELET COMMENT ADEQUATE
[2018-07-22 23:54] LABS: ANISOCYTOSIS 3+; HOWELL-JOLLY BODIES PRESENT; HYPOCHROMASIA 1+; POLYCHROMASIA 2+; SCHISTOCYTES SLIGHT; SICKLE RED CELLS 2+; TARGET CELLS 2+
[2018-07-23 00:02] LABS: MYELOCYTES % (MANUAL) 1 % (0)
[2018-07-23] MEDS: HYDROMORPHONE HCL INJ/PF 2 MG/ML AMPULE IV PRN ×6 (02:15→23:57)
[2018-07-23] MEDS: 1/2 NORMAL SALINE 1,000 ML IV PRN ×3 (04:00→21:18)
[2018-07-23 05:14] LABS: HEMATOCRIT 21.9 % (37.9-51.0); MEAN CORPUSCULAR HEMOGLOBIN 32.2 pg (27.0-33.4); MEAN CORPUSCULAR HGB CONC 35.6 g/dL (32.0-36.0); MEAN CORPUSCULAR VOLUME 90 fl (80-97); PLATELET COUNT 265 10^3/uL (150-450); RED BLOOD COUNT 2.43 10^6/uL (4.35-5.55); RED CELL DISTRIBUTION WIDTH 24.6 % (11.5-14.0)
[2018-07-23 05:20] LABS: HEMOGLOBIN 7.8 g/dL (13.5-17.0)
[2018-07-23 05:23] LABS: ALANINE AMINOTRANSFERASE 20 U/L (21-72); ALBUMIN 3.7 g/dL (3.5-5.0); ALKALINE PHOSPHATASE 132 U/L (38-126); ANION GAP 6 (5-19); ASPARTATE AMINO TRANSFERASE 59 U/L (17-59); BILIRUBIN,DIRECT 0.8 mg/dL (0.0-0.4); BILIRUBIN,TOTAL 3.2 mg/dL (0.2-1.3); BLOOD UREA NITROGEN 10 mg/dL (7-20); CARBON DIOXIDE 28 mmol/L (22-30); CHLORIDE 101 mmol/L (98-107); GLUCOSE 86 mg/dL (75-110); POTASSIUM 4.2 mmol/L (3.6-5.0); TOTAL PROTEIN 6.6 g/dL (6.3-8.2)
[2018-07-23 05:41] LABS: WHITE BLOOD COUNT 16.3 10^3/uL (4.0-10.5)
[2018-07-23] MEDS: HEPARIN SOD (PORCINE) 5,000 UNIT/ML 1 ML SYRINGE SUBCUT SCH ×3 (06:05→21:35)
[2018-07-23] MEDS: HYDROXYUREA 500 MG CAPSULE PO SCH (09:38)
[2018-07-23] MEDS: FENTANYL 75 MCG/HR PATCH.TD72 TD SCH (13:52)
--- NOTE | 2018-07-23 15:30 | PDOC PROGRESS REPORT ---
Subjective Progress Note for:: 07/23/18 Subjective:: 23 y.o. M with a H sickle cell disease admitted to [facility] for sickle cell crisis, his presenting complaint was chest pain. Originally told admitting hospitalist that he is treated/followed by talent acquisition project manager at [facility], but this information seems to be false. Today, the patient reported he does not have a talent acquisition project manager and he usually travels around "to any of the local hospitals" when he is in crisis. The patient was seen this morning on rounds, he is resting comfortably in bed on nasal cannula. He is arousable and able to carry conversation today, he is much more alert when compared to yesterday. The patient still complains of pain in his forearms and lower legs. Pain is reproduced with palpation. LCTA. S1S2. No joint deformities. No peripheral edema. Hgb 7.8 today, patient's baseline is 7.0. Nursing staff reports the patient is still becoming briefly hypoxic when given his IV dilaudid. Additionally, the patient states that he does not want to "get pumped full of Dilaudid." He states this does not help his overall condition. Will increase fentanyl patch dosage and decrease PRN dilaudid. If patient continues to have significant amount of pain, will consider consulting hematology tomorrow. Reason For Visit: SICKLE CELL DX WITH ACUTE PAIN EPISODE Physical Exam Vital Signs: Temp Pulse Resp BP Pulse Ox 98.9 F 113 H 20 127/62 H 96 07/23/18 12:29 07/23/18 13:24 07/23/18 12:29 07/23/18 12:29 07/23/18 12:29 Pulse Oximeter Continuous Start: 07/21/18 03:17 Freq: RTQ4 Status: Active Protocol: Document 07/23/18 12:20 [facility] (Rec: 07/23/18 12:20 [facility] [id number]) Pulse Oximetry Assessment Oxygen Saturation (92-100) 96 Oxygen Flow Rate (L/min) 4 Oxygen Delivery Method Nasal Cannula Fraction of Inspired Oxygen (FIO2) 36 Equipment Usage Equipment in Use Continuous SpO2 Machine # 8 Intake & Output 07/22/18 07/23/18 07/24/18 06:59 06:59 06:59 Intake Total 3637 3068 1918 Output Total 2200 1075 1900 Balance 1431992 Weight 60.5 kg 60.6 kg General appearance: PRESENT: thin Eye exam: PRESENT: conjunctiva pink, PERRLA Mouth exam: PRESENT: moist, tongue midline Neck exam: PRESENT: full ROM Respiratory exam: PRESENT: clear to auscultation oxana, symmetrical, unlabored Cardiovascular exam: PRESENT: RRR Pulses: PRESENT: normal radial pulses, normal dorsalis pedis pul GI/Abdominal exam: PRESENT: normal bowel sounds, soft. ABSENT: distended, tenderness Rectal exam: PRESENT: deferred Extremities exam: PRESENT: full ROM Musculoskeletal exam: PRESENT: ambulatory, full ROM Neurological exam: PRESENT: alert, awake, oriented to person, oriented to place, oriented to time, oriented to situation Psychiatric exam: PRESENT: appropriate affect Skin exam: PRESENT: dry, intact, normal color Results Laboratory Results: 07/23/18 04:08 07/23/18 04:08 07/22/18 07/22/18 07/23/18 08:38 23:07 04:08 WBC 14.9 H 16.3 H RBC 2.29 L 2.43 L Hgb 7.3 L 7.8 L Hct 20.6 L 21.9 L MCV 90 D 90 MCH 32.1 32.2 MCHC 35.7 35.6 RDW 24.3 H 24.6 H Plt Count 251 265 Seg Neutrophils % Not Reportable Lymphocytes % Not Reportable Monocytes % Not Reportable Eosinophils % Not Reportable Basophils % Not Reportable Absolute Neutrophils Not Reportable Absolute Lymphocytes Not Reportable Absolute Monocytes Not Reportable Absolute Eosinophils Not Reportable Absolute Basophils Not Reportable Sodium Potassium Chloride Carbon Dioxide Anion Gap BUN Creatinine Est GFR ( Amer) Est GFR (Non-Af Amer) Glucose Calcium Total Bilirubin AST ALT Alkaline Phosphatase Total Protein Albumin Blood Type O POSITIVE Antibody Screen NEGATIVE 07/23/18 04:08 WBC RBC Hgb Hct MCV MCH MCHC RDW Plt Count Seg Neutrophils % Lymphocytes % Monocytes % Eosinophils % Basophils % Absolute Neutrophils Absolute Lymphocytes Absolute Monocytes Absolute Eosinophils Absolute Basophils Sodium 135.0 L Potassium 4.2 Chloride 101 Carbon Dioxide 28 Anion Gap 6 BUN 10 Creatinine 0.55 Est GFR ( Amer) > 60 Est GFR (Non-Af Amer) > 60 Glucose 86 Calcium 9.0 Total Bilirubin 3.2 H AST 59 ALT 20 L Alkaline Phosphatase 132 H Total Protein 6.6 Albumin 3.7 Blood Type Antibody Screen 07/21/18 07/22/18 00:00 05:08 Troponin I < 0.012 0.058 Impressions: Chest X-Ray 07/20/18 23:58 IMPRESSION: Negative chest copyright 2010 [employer]- All Rights Reserved Status: Imported from PACS Assessment and Plan - Diagnosis (1) Sickle cell pain crisis Is this a current diagnosis for this admission?: Yes Plan: Increase Fentanyl patch to 75mcg/hr for continuous analgesia Decreased dilaudid from 1mg to 0.5 IV q2h PRN. IV hydration. Supplemental oxygen via nasal cannula. Transfuse if Hgb < 6.0 If patient continues to experience significant amount of pain, will consult hematology tomorrow (2) Dehydration Is this a current diagnosis for this admission?: Yes Plan: Continue NS at 125mL/hr (3) Hypoxemia Is this a current diagnosis for this admission?: Yes Plan: Supplemental O2 per NC for SPO2>93% Continuous pulse ox (4) Sickle cell anemia Qualifiers: Sickle-cell associated disorders: with unspecified crisis Qualified Code(s): D57.00 - Hb-SS disease with crisis, unspecified; D57.0 - Hb-SS disease with crisis Is this a current diagnosis for this admission?: Yes Plan: Hgb baseline 7 7.8 today Transfused 2U PRBC yesterday Hydroxyurea 100mg daily-no plan to increase dose since Hgb dropped to 5.5 yesterday DVT prophylaxis started. - Time Time Spent with patient: 15-24 minutes Medications reviewed and adjusted accordingly: Yes Anticipated discharge: Home Within: within 36 hours - Inpatient Certification Based on my medical assessment, after consideration of the patient's comorbidities, presenting symptoms, or acuity I expect that the services needed warrant INPATIENT care.: Yes I certify that my determination is in accordance with my understanding of Medicare's requirements for reasonable and necessary INPATIENT services [42 CFR 412.3e].: Yes Medical Necessity: Need for Pain Control
[2018-07-23] MEDS ORDERED: GUAIFENESIN 600 MG TABLET.SA PO ONE (23:00)
[2018-07-24] MEDS: 1/2 NORMAL SALINE 1,000 ML IV PRN ×2 (05:30→17:10)
[2018-07-24] MEDS: HEPARIN SOD (PORCINE) 5,000 UNIT/ML 1 ML SYRINGE SUBCUT SCH ×3 (05:54→21:13)
[2018-07-24 05:55] LABS: ABSOLUTE RETICS # 0.277 10^6/uL (0.028-0.122); HEMATOCRIT 18.7 % (37.9-51.0); MEAN CORPUSCULAR HEMOGLOBIN 30.8 pg (27.0-33.4); MEAN CORPUSCULAR HGB CONC 34.6 g/dL (32.0-36.0); MEAN CORPUSCULAR VOLUME 89 fl (80-97); PLATELET COUNT 220 10^3/uL (150-450); RED CELL DISTRIBUTION WIDTH 24.5 % (11.5-14.0); RETICULOCYTE COUNT (AUTO) 13.18 % (0.66-2.85); WHITE BLOOD COUNT 14.3 10^3/uL (4.0-10.5)
[2018-07-24 05:58] LABS: HEMOGLOBIN 6.5 g/dL (13.5-17.0)
[2018-07-24 06:11] LABS: ALANINE AMINOTRANSFERASE 25 U/L (21-72); ALBUMIN 3.3 g/dL (3.5-5.0); ALKALINE PHOSPHATASE 135 U/L (38-126); ANION GAP 7 (5-19); ASPARTATE AMINO TRANSFERASE 32 U/L (17-59); BILIRUBIN,DIRECT 0.6 mg/dL (0.0-0.4); BILIRUBIN,TOTAL 3.6 mg/dL (0.2-1.3); BLOOD UREA NITROGEN 12 mg/dL (7-20); CALCIUM 8.5 mg/dL (8.4-10.2); CARBON DIOXIDE 31 mmol/L (22-30); CHLORIDE 96 mmol/L (98-107); GLUCOSE 99 mg/dL (75-110); POTASSIUM 3.8 mmol/L (3.6-5.0); TOTAL PROTEIN 6.2 g/dL (6.3-8.2)
[2018-07-24] MEDS: HYDROMORPHONE HCL INJ/PF 2 MG/ML AMPULE IV PRN (08:17)
--- NOTE | 2018-07-24 08:56 | PDOC CONSULTATION ---
Consultation Consult Date: 07/24/18 Attending physician:: JESSENIA WINTER Consult reason:: Pain crisis, note sickle cell disease History of Present Illness Admission Date/PCP: 07/21/18 02:15 Patient complains of: Severe pain History of Present Illness: VIBHA ROWLAND is a 23 year old male with known long-standing history of sickle cell disease, here with crisis, usually follows in [place], over the last 1-2 years he has had pain crisis every 2 months, usually advised him to when he gets admitted he gets a combination of IV Dilaudid, oral OxyContin, and naproxen. His crises usually last 3-7 days. They have been more frequent in the last year. Sometime ago he decided to move to [place] from here. Prior to that he was getting a pheresis blood monthly and that seemed to control his pain crisis and he was very infrequently admitted. Once he moved to [place], that stopped. Unfortunately he also lost his insurance and so far has not been able to get back into that program. Past Medical History Cardiac Medical History: Denies: Coronary Artery Disease, Myocardial Infarction Pulmonary Medical History: Denies: Asthma, Chronic Obstructive Pulmonary Disease (COPD), Respiratory Failure EENT Medical History: Denies: None Neurological Medical History: Denies: Multiple Sclerosis, Seizures Endocrine Medical History: Denies: Diabetes Mellitus Type 2, Obesity Renal/ Medical History: Denies: Chronic Kidney Disease Malignancy Medical History: Reports: None GI Medical History: Denies: Peptic Ulcer Disease Musculoskeltal Medical History: Denies: Arthritis, Fibromyalgia Skin Medical History: Denies: Eczema, Psoriasis Psychiatric Medical History: Denies: Alcohol Dependency, Depression, General Anxiety Disorder, Substance Abuse, Tobacco Dependency Traumatic Medical History: Reports: None Hematology: Reports: Sickle Cell Disease Infectious Medical History: Reports: None Past Surgical History Past Surgical History: 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 Social History Lives with: Parents Smoking Status: Never Smoker Frequency of Alcohol Use: None Hx Recreational Drug Use: No Drugs: None Hx Prescription Drug Abuse: No - Advance Directive Resuscitation Status: Full Code Family History Family History: Reviewed & Not Pertinent Parental Family History Reviewed: Yes Children Family History Reviewed: Yes Sibling(s) Family History Reviewed.: Yes Medication/Allergy Home Medications: Ergocalciferol (Vitamin D2) [Drisdol 50,000 unit (1.25MG) Capsule] 50,000 unit PO RUBY@1000 07/21/18 Folic Acid [Folvite 1 mg Tablet] 1 mg PO DAILY 07/21/18 Hydroxyurea 1,000 mg PO DAILY 07/21/18 Naproxen 500 mg PO BIDP PRN 07/21/18 Allergies/Adverse Reactions: No Known Allergies Allergy (Unverified 02/09/18 08:50) Review of Systems Constitutional: ABSENT: chills, fever(s), headache(s), weight gain, weight loss Eyes: ABSENT: visual disturbances Ears: ABSENT: hearing changes Cardiovascular: ABSENT: chest pain, dyspnea on exertion, edema, orthropnea, palpitations Respiratory: ABSENT: cough, hemoptysis Gastrointestinal: ABSENT: abdominal pain, constipation, diarrhea, hematemesis, hematochezia, nausea, vomiting Genitourinary: ABSENT: dysuria, hematuria Musculoskeletal: ABSENT: joint swelling Integumentary: ABSENT: rash, wounds Neurological: ABSENT: abnormal gait, abnormal speech, confusion, dizziness, focal weakness, syncope Psychiatric: ABSENT: anxiety, depression, homidical ideation, suicidal ideation Endocrine: ABSENT: cold intolerance, heat intolerance, polydipsia, polyuria Hematologic/Lymphatic: ABSENT: easy bleeding, easy bruising Physical Exam Vital Signs: Temp Pulse Resp BP Pulse Ox 98.5 F 103 H 23 H 131/63 H 100 07/24/18 04:23 07/24/18 07:00 07/24/18 04:23 07/24/18 04:23 07/24/18 08:00 Pulse Oximeter Continuous Start: 07/21/18 03:17 Freq: RTQ4 Status: Active Protocol: Document 07/24/18 08:00 [facility] (Rec: 07/24/18 08:04 [facility] [id number]) Pulse Oximetry Assessment Oxygen Saturation (92-100) 100 Oxygen Flow Rate (L/min) 4 Oxygen Delivery Method Simple Mask Fraction of Inspired Oxygen (FIO2) 36 Equipment Usage Equipment in Use Continuous SpO2 Machine # 8 Intake & Output 07/23/18 07/24/18 07/25/18 06:59 06:59 06:59 Intake Total 3541 0481 Output Total 3617 6795 Balance 1992 1975 Weight 60.6 kg 61.7 kg General appearance: PRESENT: no acute distress, well-developed, well-nourished Head exam: PRESENT: atraumatic, normocephalic Eye exam: PRESENT: conjunctiva pink, EOMI, PERRLA. ABSENT: scleral icterus Ear exam: PRESENT: normal external ear exam Mouth exam: PRESENT: moist, tongue midline Neck exam: ABSENT: carotid bruit, JVD, lymphadenopathy, thyromegaly Respiratory exam: PRESENT: clear to auscultation oxana. ABSENT: rales, rhonchi, wheezes Cardiovascular exam: PRESENT: RRR. ABSENT: diastolic murmur, rubs, systolic murmur Pulses: PRESENT: normal dorsalis pedis pul Vascular exam: PRESENT: normal capillary refill GI/Abdominal exam: PRESENT: normal bowel sounds, soft. ABSENT: distended, guarding, mass, organolmegaly, rebound, tenderness Rectal exam: PRESENT: deferred Extremities exam: PRESENT: full ROM. ABSENT: calf tenderness, clubbing, pedal edema Neurological exam: PRESENT: alert, awake, oriented to person, oriented to place, oriented to time, oriented to situation, CN II-XII grossly intact. ABSENT: motor sensory deficit Psychiatric exam: PRESENT: appropriate affect, normal mood. ABSENT: homicidal ideation, suicidal ideation Skin exam: PRESENT: dry, intact, warm. ABSENT: cyanosis, rash Results Laboratory Results: 07/24/18 05:25 07/24/18 05:25 07/22/18 07/24/18 07/24/18 08:38 05:25 05:25 WBC 14.3 H RBC 2.10 L Hgb 6.5 L Hct 18.7 L MCV 89 MCH 30.8 MCHC 34.6 RDW 24.5 H Plt Count 220 Retic Count (auto) 13.18 H Absolute Retic 0.277 H Sodium 134.0 L Potassium 3.8 Chloride 96 L Carbon Dioxide 31 H Anion Gap 7 BUN 12 Creatinine 0.50 L Est GFR ( Amer) > 60 Est GFR (Non-Af Amer) > 60 Glucose 99 Calcium 8.5 Magnesium 2.3 Total Bilirubin 3.6 H AST 32 ALT 25 Alkaline Phosphatase 135 H Total Protein 6.2 L Albumin 3.3 L Blood Type O POSITIVE Antibody Screen NEGATIVE 07/21/18 07/22/18 00:00 05:08 Troponin I < 0.012 0.058 Impressions: Chest X-Ray 07/20/18 23:58 IMPRESSION: Negative chest copyright 2011 [employer]- All Rights Reserved Assessment & Plan - Diagnosis (1) Sickle cell pain crisis Is this a current diagnosis for this admission?: Yes Plan: Will increase Dilaudid to 1 mg every 2 hours, I offered him initiation of OxyContin but he actually feels better on the fentanyl. So agree with hospita list approach to continue with fentanyl for now. I will add on naproxen 500 mg twice daily as they had in the past in [place]. (2) Sickle cell anemia Qualifiers: Sickle-cell associated disorders: with unspecified crisis Qualified Code(s) : D57.00 - Hb-SS disease with crisis, unspecified; D57.0 - Hb-SS disease with crisis Is this a current diagnosis for this admission?: Yes Plan: Sickle cell anemia, hemoglobin is 6.5 but would hold on transfusion today. Would wait until tomorrow and if hemoglobin falls under 6 give him another unit. - Time Time Spent: Greater than 70 Minutes - Inpatient Certification Based on my medical assessment, after consideration of the patient's comorbidities, presenting symptoms, or acuity I expect that the services needed warrant INPATIENT care.: Yes I certify that my determination is in accordance with my understanding of Medicare's requirements for reasonable and necessary INPATIENT services [42 CFR 412.3e].: Yes Medical Necessity: Need For IV Fluids, Need for Pain Control
[2018-07-24] MEDS: HYDROXYUREA 500 MG CAPSULE PO SCH (09:55)
[2018-07-24] MEDS: GUAIFENESIN 600 MG TABLET.SA PO SCH ×2 (09:55→17:10)
[2018-07-24] MEDS ORDERED: HYDROMORPHONE HCL INJ/PF 2 MG/ML AMPULE IV PRN (10:01)
[2018-07-24] MEDS: NAPROXEN 250 MG TABLET PO SCH ×2 (10:38→17:10)
[2018-07-24 12:43] LABS: PATH REVIEW PATHOLOGIST REVIEWED
[2018-07-24 16:16] LABS: HEMATOCRIT 20.1 % (37.9-51.0); MEAN CORPUSCULAR HEMOGLOBIN 30.3 pg (27.0-33.4); MEAN CORPUSCULAR HGB CONC 34.5 g/dL (32.0-36.0); MEAN CORPUSCULAR VOLUME 88 fl (80-97); PLATELET COUNT 237 10^3/uL (150-450); RED CELL DISTRIBUTION WIDTH 21.9 % (11.5-14.0); WHITE BLOOD COUNT 12.4 10^3/uL (4.0-10.5)
[2018-07-24 16:51] LABS: ABSOLUTE NEUTROPHILS# (MANUAL) 8.2 10^3/uL (1.7-8.2); BASOPHILS % (MANUAL) 0 % (0-2); EOSINOPHILS % (MANUAL) 2 % (0-6); LYMPHOCYTES % (MANUAL) 16 % (13-45); MONOCYTES % (MANUAL) 16 % (3-13); NUCLEATED RED BLOOD CELLS 20 /100 WBC (0); SEGMENTED NEUTROPHILS % (MAN) 66 % (42-78); TOTAL CELLS COUNTED 100
[2018-07-24 16:55] LABS: ANISOCYTOSIS 3+; POIKILOCYTOSIS 1+; SCHISTOCYTES SLIGHT; SICKLE RED CELLS SLIGHT; TARGET CELLS SLIGHT; TOXIC GRANULATION SLIGHT
[2018-07-24 16:56] LABS: PLATELET COMMENT ADEQUATE
[2018-07-24 17:01] LABS: HEMOGLOBIN 6.9 g/dL (13.5-17.0)
--- NOTE | 2018-07-24 17:27 | PDOC PROGRESS REPORT ---
Subjective Progress Note for:: 07/24/18 Subjective:: 23 y.o. M with a H sickle cell disease [facility], his presenting complaint was chest pain. Patient reports that he is treated/followed by fagoter at [facility]. He was recently placed on hydroxyurea, but patient reports he is 'not sure he notices a difference' with his disease process. The patient was seen this morning on rounds, he is resting comfortably in bed on nasal cannula. The patient still complains of pain in his forearms and lower legs. Pain is reproduced with palpation. LCTA. S1S2. No joint deformities. No peripheral edema. Hgb 6.5 today, 1U PRBC ordered by [facility] hospitalist. Consulted Hematology this morning. Dr. Clemente recommends increasing Dilaudid IV dose and adding Naproxen to regimen. Plan to continue Fentanyl patch. Reason For Visit: SICKLE CELL DX WITH ACUTE PAIN EPISODE Physical Exam Vital Signs: Temp Pulse Resp BP Pulse Ox 97.9 F 91 16 133/63 H 93 07/24/18 14:24 07/24/18 14:24 07/24/18 14:24 07/24/18 14:24 07/24/18 14:24 Pulse Oximeter Continuous Start: 07/21/18 03:17 Freq: RTQ4 Status: Active Protocol: Document 07/24/18 16:00 [facility] (Rec: 07/24/18 17:12 [facility] [id number]) Pulse Oximetry Assessment Equipment Usage Equipment Standby Continuous SpO2 Machine # 8 Intake & Output 07/23/18 07/24/18 07/25/18 06:59 06:59 06:59 Intake Total 3065 4801 1400 Output Total 1980 5323 Balance 1992 1975 1399 Weight 60.6 kg 61.7 kg Results Laboratory Results: 07/24/18 16:00 07/24/18 05:25 07/22/18 07/24/18 07/24/18 08:38 05:25 05:25 WBC 14.3 H RBC 2.10 L Hgb 6.5 L Hct 18.7 L MCV 89 MCH 30.8 MCHC 34.6 RDW 24.5 H Plt Count 220 Seg Neutrophils % Lymphocytes % Monocytes % Eosinophils % Basophils % Absolute Neutrophils Absolute Lymphocytes Absolute Monocytes Absolute Eosinophils Absolute Basophils Retic Count (auto) 13.18 H Absolute Retic 0.277 H Sodium 134.0 L Potassium 3.8 Chloride 96 L Carbon Dioxide 31 H Anion Gap 7 BUN 12 Creatinine 0.50 L Est GFR ( Amer) > 60 Est GFR (Non-Af Amer) > 60 Glucose 99 Calcium 8.5 Magnesium 2.3 Total Bilirubin 3.6 H AST 32 ALT 25 Alkaline Phosphatase 135 H Total Protein 6.2 L Albumin 3.3 L Blood Type O POSITIVE Antibody Screen NEGATIVE 07/24/18 16:00 WBC 12.4 H RBC 2.30 L Hgb 6.9 L Hct 20.1 L MCV 88 MCH 30.3 MCHC 34.5 RDW 21.9 H Plt Count 237 Seg Neutrophils % Not Reportable Lymphocytes % Not Reportable Monocytes % Not Reportable Eosinophils % Not Reportable Basophils % Not Reportable Absolute Neutrophils Not Reportable Absolute Lymphocytes Not Reportable Absolute Monocytes Not Reportable Absolute Eosinophils Not Reportable Absolute Basophils Not Reportable Retic Count (auto) Absolute Retic Sodium Potassium Chloride Carbon Dioxide Anion Gap BUN Creatinine Est GFR ( Amer) Est GFR (Non-Af Amer) Glucose Calcium Magnesium Total Bilirubin AST ALT Alkaline Phosphatase Total Protein Albumin Blood Type Antibody Screen 07/21/18 07/22/18 00:00 05:08 Troponin I < 0.012 0.058 Impressions: Chest X-Ray 07/20/18 23:58 IMPRESSION: Negative chest copyright 2011 [employer]- All Rights Reserved Assessment and Plan - Diagnosis (1) Sickle cell pain crisis Is this a current diagnosis for this admission?: Yes Plan: Increase Fentanyl patch to 75mcg/hr for continuous analgesia Hematology recommends increasing Dilaudid from 0.5 mg IV every 2 hours to 1 mg IV every 2 hours. Continue IV maintenance fluid@ 125ml/hr Supplemental oxygen via nasal cannula. Transfuse if Hgb < 6.0 (2) Dehydration Is this a current diagnosis for this admission?: Yes Plan: Continue NS at 125mL/hr (3) Hypoxemia Is this a current diagnosis for this admission?: Yes Plan: Supplemental O2 per [place] for SPO2>93% Continuous pulse ox (4) Sickle cell anemia Qualifiers: Sickle-cell associated disorders: with unspecified crisis Qualified Code(s): D57.00 - Hb-SS disease with crisis, unspecified; D57.0 - Hb-SS disease with crisis Is this a current diagnosis for this admission?: Yes Plan: Hgb baseline 7 6.5 today [facility] hospitalist ordered 1 unit PRBCs Hydroxyurea 100mg daily-no plan to increase dose since Hgb dropped to 5.5 yesterday DVT prophylaxis started. Hematology consulted, appreciate their recommendations (5) Tachycardia Is this a current diagnosis for this admission?: Yes Plan: HR climbs to 140s with movement (per nursing staff) This is likely multifactorial: Pain, dehydration, deconditioning Fentanyl patch and IV Dilaudid for pain Maintenance IVF for dehydration Patient is primarily sleeping in bed, should ambulate in hallways once per shift and get OOB to recliner for 1 meal per day - Time Time Spent with patient: 15-24 minutes Medications reviewed and adjusted accordingly: Yes Anticipated discharge: Home - Inpatient Certification Based on my medical assessment, after consideration of the patient's comorbidities, presenting symptoms, or acuity I expect that the services needed warrant INPATIENT care.: Yes I certify that my determination is in accordance with my understanding of Medicare's requirements for reasonable and necessary INPATIENT services [42 CFR 412.3e].: Yes Medical Necessity: Need For Continuous Telemetry Monitoring, Risk of Complica tion if Not Cared For in Hospital
[2018-07-25] MEDS: KETOROLAC TROMETHAMINE INJ/PF 30 MG/1 ML SDV IV PRN (05:17)
[2018-07-25] MEDS: HEPARIN SOD (PORCINE) 5,000 UNIT/ML 1 ML SYRINGE SUBCUT SCH ×3 (05:17→21:08)
--- NOTE | 2018-07-25 08:32 | PDOC PROGRESS REPORT ---
Subjective Progress Note for:: 07/25/18 Subjective:: Patient is very groggy this morning, did wake up and say a few words to me but went right back to sleep. Reason For Visit: SICKLE CELL DX WITH ACUTE PAIN EPISODE Physical Exam Vital Signs: Temp Pulse Resp BP Pulse Ox 98.6 F 94 20 133/55 H 97 07/25/18 03:10 07/25/18 03:10 07/25/18 03:10 07/25/18 03:10 07/25/18 04:35 Pulse Oximeter Continuous Start: 07/21/18 03:17 Freq: RTQ4 Status: Active Protocol: Document 07/25/18 04:35 [facility] (Rec: 07/25/18 06:02 [facility] [id number]) Pulse Oximetry Assessment Oxygen Saturation (92-100) 97 Oxygen Delivery Method Room Air Fraction of Inspired Oxygen (FIO2) 21 Equipment Usage Equipment Standby Continuous SpO2 Machine # N8 Intake & Output 07/24/18 07/25/18 07/26/18 06:59 06:59 06:59 Intake Total 4801 4137 Output Total 2825 1600 Balance 1976 2537 Weight 61.7 kg 61 kg General appearance: PRESENT: no acute distress, well-developed, well-nourished Head exam: PRESENT: atraumatic, normocephalic Eye exam: PRESENT: conjunctiva pink, EOMI, PERRLA. ABSENT: scleral icterus Ear exam: PRESENT: normal external ear exam Mouth exam: PRESENT: moist, tongue midline Neck exam: ABSENT: carotid bruit, JVD, lymphadenopathy, thyromegaly Respiratory exam: PRESENT: clear to auscultation oxana. ABSENT: rales, rhonchi, wheezes Cardiovascular exam: PRESENT: RRR. ABSENT: diastolic murmur, rubs, systolic murmur Pulses: PRESENT: normal dorsalis pedis pul Vascular exam: PRESENT: normal capillary refill GI/Abdominal exam: PRESENT: normal bowel sounds, soft. ABSENT: distended, guarding, mass, organolmegaly, rebound, tenderness Rectal exam: PRESENT: deferred Extremities exam: PRESENT: full ROM. ABSENT: calf tenderness, clubbing, pedal edema Neurological exam: PRESENT: alert, awake, oriented to person, oriented to place, oriented to time, oriented to situation, CN II-XII grossly intact. ABSENT: motor sensory deficit Psychiatric exam: PRESENT: appropriate affect, normal mood. ABSENT: homicidal ideation, suicidal ideation Skin exam: PRESENT: dry, intact, warm. ABSENT: cyanosis, rash Results Laboratory Results: 07/24/18 16:00 07/24/18 05:25 07/22/18 07/24/18 08:38 16:00 WBC 12.4 H RBC 2.30 L Hgb 6.9 L Hct 20.1 L MCV 88 MCH 30.3 MCHC 34.5 RDW 21.9 H Plt Count 237 Seg Neutrophils % Not Reportable Lymphocytes % Not Reportable Monocytes % Not Reportable Eosinophils % Not Reportable Basophils % Not Reportable Absolute Neutrophils Not Reportable Absolute Lymphocytes Not Reportable Absolute Monocytes Not Reportable Absolute Eosinophils Not Reportable Absolute Basophils Not Reportable Blood Type O POSITIVE Antibody Screen NEGATIVE 07/21/18 07/22/18 00:00 05:08 Troponin I < 0.012 0.058 Impressions: Chest X-Ray 07/20/18 23:58 IMPRESSION: Negative chest copyright 2011 [employer]- All Rights Reserved Assessment & Plan - Diagnosis (1) Sickle cell pain crisis Is this a current diagnosis for this admission?: Yes Plan: He really did not like the higher dose of Dilaudid he is on a lower dose now as needed. Is nearly 24 hours ago. He is getting ketorolac and naproxen. He does have the fentanyl patch 75 mcg, this may be why he is sleepier today because he is generally fentanyl susy because on previous admissions he was receiving Dilaudid and oxycodone.. I have asked nursing for evaluation of him later today and we may need a decrease the fentanyl patch to 50 mcg. (2) Sickle cell anemia Qualifiers: Sickle-cell associated disorders: with unspecified crisis Qualified Code(s): D57.00 - Hb-SS disease with crisis, unspecified; D57.0 - Hb-SS disease with crisis Is this a current diagnosis for this admission?: Yes Plan: Hemoglobin stable continue to monitor
[2018-07-25] MEDS: GUAIFENESIN 600 MG TABLET.SA PO SCH ×2 (10:00→17:00)
[2018-07-25] MEDS: HYDROXYUREA 500 MG CAPSULE PO SCH (10:00)
[2018-07-25] MEDS: NAPROXEN 250 MG TABLET PO SCH ×2 (10:00→17:00)
--- NOTE | 2018-07-25 21:54 | PDOC PROGRESS REPORT ---
Subjective Subjective:: 23 y.o. M with a H sickle cell disease admitted to [facility] for sickle cell crisis, his presenting complaint was chest pain. Patient reports that he is treated/followed by cooker syrup at [facility]. He was recently placed on h ydroxyurea, but patient reports he is 'not sure he notices a difference' with his disease process. Patient was seen on morning rounds; he was found sitting up to the recliner on room air. He reports that he is continuing to have pain to his extremities; especially his left wrist. He does feel that the addition of the fentanyl patch has been beneficial. He has no other questions or concerns. ROS is otherwise negative. Reason For Visit: SICKLE CELL DX WITH ACUTE PAIN EPISODE Physical Exam Vital Signs: Temp Pulse Resp BP Pulse Ox 98.4 F 84 16 117/58 L 97 07/25/18 15:22 07/25/18 19:00 07/25/18 15:22 07/25/18 15:22 07/25/18 16:50 Pulse Oximeter Continuous Start: 07/21/18 03:17 Freq: RTQ4 Status: Active Protocol: Document 07/25/18 16:[address] [facility] (Rec: 07/25/18 16:[address] [facility] [id number]) Pulse Oximetry Assessment Oxygen Saturation (92-100) 97 Oxygen Delivery Method Room Air Fraction of Inspired Oxygen (FIO2) 21 Equipment Usage Equipment Standby Continuous SpO2 Machine # 8 Intake & Output 07/24/18 07/25/18 07/26/18 06:59 06:59 06:59 Intake Total 4804 4248 1549 Output Total 1433 1600 750 Balance 1976 1407 799 Weight 61.7 kg 61 kg General appearance: PRESENT: no acute distress, cooperative, well-developed, well-nourished Head exam: PRESENT: atraumatic, normocephalic Eye exam: PRESENT: conjunctiva pink, EOMI, PERRLA. ABSENT: scleral icterus Mouth exam: PRESENT: moist, tongue midline Neck exam: ABSENT: carotid bruit, JVD, lymphadenopathy, thyromegaly Respiratory exam: PRESENT: clear to auscultation oxana, symmetrical, unlabored. ABSENT: rales, rhonchi, wheezes Cardiovascular exam: PRESENT: RRR. ABSENT: diastolic murmur, rubs, systolic murmur Pulses: PRESENT: normal dorsalis pedis pul Vascular exam: PRESENT: normal capillary refill GI/Abdominal exam: PRESENT: normal bowel sounds, soft. ABSENT: distended, guarding, mass, organolmegaly, rebound, tenderness Rectal exam: PRESENT: deferred Extremities exam: PRESENT: full ROM. ABSENT: calf tenderness, clubbing, pedal edema Neurological exam: PRESENT: alert, awake, oriented to person, oriented to place, oriented to time, oriented to situation, CN II-XII grossly intact. ABSENT: motor sensory deficit Psychiatric exam: PRESENT: appropriate affect, normal mood. ABSENT: homicidal ideation, suicidal ideation Skin exam: PRESENT: dry, intact, warm. ABSENT: cyanosis, rash Results Laboratory Results: 07/24/18 16:00 07/24/18 05:25 07/21/18 07/22/18 00:00 05:08 Troponin I < 0.012 0.058 Impressions: Chest X-Ray 07/20/18 23:58 IMPRESSION: Negative chest copyright 2011 [employer]- All Rights Reserved Assessment and Plan - Diagnosis (1) Sickle cell pain crisis Is this a current diagnosis for this admission?: Yes Plan: Continue Fentanyl patch to 75mcg/hr for continuous analgesia Continue Dilaudid from 0.5 mg IV every 2 hours to 1 mg IV every 2 hours. Continue IV maintenance fluid@ 125ml/hr Hydroxyurea 1000 mg daily. Naproxen 500 mg BID Supplemental oxygen via nasal cannula. Transfuse if Hgb < 6.0 Hematology is consulted; appreciate their assistance. (2) Dehydration Is this a current diagnosis for this admission?: Yes Plan: Continue NS at 125mL/hr (3) Hypoxemia Is this a current diagnosis for this admission?: Yes Plan: Resolved; patient now maintaining saturations while on room air. Secondary to Sickle Cell Anemia Supplemental O2 per [place] for SPO2>93% Continuous pulse ox (4) Sickle cell anemia Qualifiers: Sickle-cell associated disorders: with unspecified crisis Qualified Code(s): D57.00 - Hb-SS disease with crisis, unspecified; D57.0 - Hb-SS disease with crisis Is this a current diagnosis for this admission?: Yes Plan: Hgb baseline 7; 6.9 today s/p 1 unit PRBC Hydroxyurea 100mg daily-no plan to increase dose since Hgb dropped to 5.5 previously this admission DVT prophylaxis started. Hematology consulted, appreciate their recommendations (5) Tachycardia Is this a current diagnosis for this admission?: Yes Plan: Improved; HR now in the mid 80s-90s. No longer tachycardic with minimal activity. Dyspnea/hypoxia have also resolved. This is likely multifactorial: Anemia, pain, dehydration, deconditioning Fentanyl patch and IV Dilaudid for pain Maintenance IVF for dehydration S/p 1 unit PRBC Encourage ambulation - Time Time Spent with patient: 15-24 minutes Medications reviewed and adjusted accordingly: Yes Anticipated discharge: Home
[2018-07-26] MEDS: KETOROLAC TROMETHAMINE INJ/PF 30 MG/1 ML SDV IV PRN (01:29)
[2018-07-26] MEDS: HEPARIN SOD (PORCINE) 5,000 UNIT/ML 1 ML SYRINGE SUBCUT SCH ×2 (05:07→14:05)
[2018-07-26 05:28] LABS: HEMATOCRIT 21.8 % (37.9-51.0); MEAN CORPUSCULAR HEMOGLOBIN 30.6 pg (27.0-33.4); MEAN CORPUSCULAR HGB CONC 33.7 g/dL (32.0-36.0); MEAN CORPUSCULAR VOLUME 91 fl (80-97); PLATELET COUNT 298 10^3/uL (150-450); RED CELL DISTRIBUTION WIDTH 22.2 % (11.5-14.0); WHITE BLOOD COUNT 9.1 10^3/uL (4.0-10.5)
[2018-07-26 05:47] LABS: ANION GAP 7 (5-19); BLOOD UREA NITROGEN 11 mg/dL (7-20); CALCIUM 8.9 mg/dL (8.4-10.2); CARBON DIOXIDE 29 mmol/L (22-30); CHLORIDE 104 mmol/L (98-107); GLUCOSE 100 mg/dL (75-110); POTASSIUM 3.7 mmol/L (3.6-5.0); SODIUM 139.6 mmol/L (137-145)
[2018-07-26 06:13] LABS: HEMOGLOBIN 7.3 g/dL (13.5-17.0)
--- NOTE | 2018-07-26 08:53 | PDOC PROGRESS REPORT ---
Subjective Progress Note for:: 07/26/18 Subjective:: He still is having significant pain but is not wanting to take any IV pain medication. At this point he feels like he can endure the rest of the crisis at home. I talked to him about placing a new fentanyl patch 75 mcg and giving him a prescription today. I will talk to hospitalist team to do this. 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 Reason For Visit: SICKLE CELL DX WITH ACUTE PAIN EPISODE Physical Exam Vital Signs: Temp Pulse Resp BP Pulse Ox 98.1 F 86 20 140/54 H 96 07/26/18 07:51 07/26/18 07:51 07/26/18 07:51 07/26/18 07:51 07/26/18 07:51 Pulse Oximeter Continuous Start: 07/21/18 03:17 Freq: RTQ4 Status: Active Protocol: Document 07/26/18 04:22 CMI (Rec: 07/26/18 04:27 CMI [id number]) Pulse Oximetry Assessment Oxygen Delivery Method Room Air Fraction of Inspired Oxygen (FIO2) 21 Equipment Usage Equipment Standby Continuous SpO2 Machine # 8 Intake & Output 07/25/18 07/26/18 07/27/18 06:59 06:59 06:59 Intake Total 4137 3944 Output Total 1600 750 Balance 2537 3194 Weight 61 kg 61.5 kg General appearance: PRESENT: no acute distress, well-developed, well-nourished Head exam: PRESENT: atraumatic, normocephalic Eye exam: PRESENT: conjunctiva pink, EOMI, PERRLA. ABSENT: scleral icterus Ear exam: PRESENT: normal external ear exam Mouth exam: PRESENT: moist, tongue midline Neck exam: ABSENT: carotid bruit, JVD, lymphadenopathy, thyromegaly Respiratory exam: PRESENT: clear to auscultation oxana. ABSENT: rales, rhonchi, wheezes Cardiovascular exam: PRESENT: RRR. ABSENT: diastolic murmur, rubs, systolic murmur Pulses: PRESENT: normal dorsalis pedis pul Vascular exam: PRESENT: normal capillary refill GI/Abdominal exam: PRESENT: normal bowel sounds, soft. ABSENT: distended, guarding, mass, organolmegaly, rebound, tenderness Rectal exam: PRESENT: deferred Extremities exam: PRESENT: full ROM. ABSENT: calf tenderness, clubbing, pedal edema Neurological exam: PRESENT: alert, awake, oriented to person, oriented to place, oriented to time, oriented to situation, CN II-XII grossly intact. ABSENT: motor sensory deficit Psychiatric exam: PRESENT: appropriate affect, normal mood. ABSENT: homicidal ideation, suicidal ideation Skin exam: PRESENT: dry, intact, warm. ABSENT: cyanosis, rash Results Laboratory Results: 07/26/18 04:37 07/26/18 04:37 07/26/18 07/26/18 04:37 04:37 WBC 9.1 RBC 2.40 L Hgb 7.3 L Hct 21.8 L MCV 91 MCH 30.6 MCHC 33.7 RDW 22.2 H Plt Count 298 Sodium 139.6 Potassium 3.7 Chloride 104 Carbon Dioxide 29 Anion Gap 7 BUN 11 Creatinine 0.49 L Est GFR ( Amer) > 60 Est GFR (Non-Af Amer) > 60 Glucose 100 Calcium 8.9 07/21/18 07/22/18 00:00 05:08 Troponin I < 0.012 0.058 Impressions: Chest X-Ray 07/20/18 23:58 IMPRESSION: Negative chest copyright 2011 [employer]- All Rights Reserved Assessment & Plan - Diagnosis (1) Sickle cell pain crisis Is this a current diagnosis for this admission?: Yes Plan: We will discussed discharge today with the hospitalist team. They should give him an rx few fentanyl patches to go home with. (2) Sickle cell anemia Qualifiers: Sickle-cell associated disorders: with unspecified crisis Qualified Code(s): D57.00 - Hb-SS disease with crisis, unspecified; D57.0 - Hb-SS disease with crisis Is this a current diagnosis for this admission?: Yes Plan: Hemoglobin stable no need for transfusion he is at baseline.
[2018-07-26] MEDS ORDERED: FOLIC ACID 1 MG TABLET PO SCH (10:00)
[2018-07-26] MEDS: FENTANYL 75 MCG/HR PATCH.TD72 TD SCH (11:02)
[2018-07-26] MEDS: GUAIFENESIN 600 MG TABLET.SA PO SCH (11:04)
[2018-07-26] MEDS: HYDROXYUREA 500 MG CAPSULE PO SCH (11:04)
[2018-07-26] MEDS: NAPROXEN 250 MG TABLET PO SCH (11:05)
[2018-07-26 14:09] VITALS: BP 133/63
--- NOTE | 2018-07-28 22:42 | PDOC DISCHARGE SUMMARY ---
General - Admit/Disc Date/PCP Admission Date/Primary Care Provider: 07/21/18 02:15 Discharge Date: 07/26/18 - Discharge Diagnosis (1) Sickle cell pain crisis Is this a current diagnosis for this admission?: Yes Summary: Patient was admitted to [facility] on continuous cardiac telemetry and pulse oximetry. HE was placed on Fentanyl patch 75mcg/hr which provided excellent pain control; he was provided a 1 week prescription at discharge. He was supported with generous IV fluids, supplemental oxygen, scheduled Naproxen, and Dilaudid for break through pain. Continued Hydroxyurea 1000 mg daily. Hematology was consulted; appreciate their assistance. At time of discharge, patient was in stable condition, maintaining oxygen saturations while ambulatory on room air, with adequately controlled pain and requesting to be discharged to home. He is advised to follow up with his PCP within 1 week and with his Inspector Brake Lining at [facility] in [place] as scheduled. He is advised that he may establish with Dr. Everett if he needs to obtain local care. He is provided a prescription for Fentanyl patches 75 mcg #3 at discharge. He is instructed to take medications as prescribed, drink plenty of water, avoid known triggers, and to to return to the emergency room as needed for concerning symptoms. (2) Hypoxemia Is this a current diagnosis for this admission?: Yes Summary: Resolved; patient now maintaining saturations while on room air. Secondary to Sickle Cell Anemia Patient was monitored on continuous pulse oximetry. He was provided supplemental oxygen as needed to maintain saturations >90%. Anemia was corrected with 1 unit PRBC. (3) Sickle cell anemia Is this a current diagnosis for this admission?: Yes Summary: Hgb baseline 7; 7.3 on day of discharge s/p 1 unit PRBC Follow up with Hematology clinic as scheduled. Continue folic acid supplementation. Continue Hydroxyurea 1000 mg once daily; monitor for symptoms of worsening anemia (dyspnea, tachycardia, fatigue). Return to the emergency department as needed for concerning symptoms. (4) Tachycardia Is this a current diagnosis for this admission?: Yes Summary: Resolved; HR now in the mid 80s. No longer tachycardic with minimal activity. Dyspnea/hypoxia have also resolved. This was likely multifactorial: Anemia, pain, dehydration, deconditioning (5) Dehydration Is this a current diagnosis for this admission?: Yes Summary: Resolved; patient was supported with generous IV fluids. - Additional Information Resuscitation Status: Full Code Discharge Diet: Regular Discharge Activity: Activity As Tolerated, Balance Activity w/Rest Prescriptions: Fentanyl [Duragesic 75 Mcg/Hr Transdermal Patch] 1 each TD Q3DAYS #3 patch.[id number] Home Medications: Ergocalciferol (Vitamin D2) [Drisdol 50,000 unit (1.25MG) Capsule] 50,000 unit PO RUBY@1000 07/21/18 Folic Acid [Folvite 1 mg Tablet] 1 mg PO DAILY 07/21/18 Hydroxyurea 1,000 mg PO DAILY 07/21/18 Naproxen 500 mg PO BIDP PRN 07/21/18 Fentanyl [Duragesic 75 Mcg/Hr Transdermal Patch] 1 each TD Q3DAYS #3 patch.[id number] 07/26/18 History of Present Illness History of Present Illness: H&P per Dr. Lock: VIBHA ROWLAND is a 23 year old man with sickle cell disease who manages his pain at home, and has been having escalating pain recently. He works at [employer], his father thinks he gets dehydrated due to the strenuous work. Pain was not manageable at home but not as severe as it has gotten in the recent past and so he came to [facility]. 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 In the ED is hgb is found to be at his baseline (about 7), his CXR is not concerning, trop is negative, pain is improving with IV opiates. He is admitted to the hospitalists with SCD and acute pain episode. Physical Exam Vital Signs: Temp Pulse Resp BP Pulse Ox 98.1 F 86 20 133/63 H 96 07/26/18 14:08 07/26/18 14:08 07/26/18 14:08 07/26/18 14:08 07/26/18 14:08 Pulse Oximeter Continuous Start: 07/21/18 03:17 Freq: RTQ4 Status: Discharge Protocol: Document 07/26/18 11:18 LDA (Rec: 07/26/18 11:18 LDA [id number]) Pulse Oximetry Assessment Equipment Usage Equipment Standby Continuous SpO2 Machine # 8 Intake & Output 07/27/18 07/28/18 07/29/18 06:59 06:59 06:59 Intake Total 118 Balance 118 General appearance: PRESENT: no acute distress, cooperative, well-developed, well-nourished Head exam: PRESENT: atraumatic, normocephalic Eye exam: PRESENT: conjunctiva pink, EOMI, PERRLA. ABSENT: scleral icterus Ear exam: PRESENT: normal external ear exam Mouth exam: PRESENT: moist, tongue midline Neck exam: ABSENT: carotid bruit, JVD, lymphadenopathy, thyromegaly Respiratory exam: PRESENT: clear to auscultation oxana. ABSENT: rales, rhonchi, wheezes Cardiovascular exam: PRESENT: RRR. ABSENT: diastolic murmur, rubs, systolic murmur Pulses: PRESENT: normal dorsalis pedis pul Vascular exam: PRESENT: normal capillary refill GI/Abdominal exam: PRESENT: normal bowel sounds, soft. ABSENT: distended, guarding, mass, organolmegaly, rebound, tenderness Rectal exam: PRESENT: deferred Extremities exam: PRESENT: full ROM. ABSENT: calf tenderness, clubbing, pedal edema Neurological exam: PRESENT: alert, awake, oriented to person, oriented to place, oriented to time, oriented to situation, CN II-XII grossly intact. ABSENT: motor sensory deficit Psychiatric exam: PRESENT: appropriate affect, normal mood. ABSENT: homicidal ideation, suicidal ideation Skin exam: PRESENT: dry, intact, warm. ABSENT: cyanosis, rash Results Laboratory Results: 07/26/18 04:37 07/26/18 04:37 07/21/18 07/22/18 00:00 05:08 Troponin I < 0.012 0.058 Impressions: Chest X-Ray 07/20/18 23:58 IMPRESSION: Negative chest copyright 2011 [employer]- All Rights Reserved Qualifiers - * PATIENT BEING DISCHARGED WITH ANY OF THE FOLLOWING DIAGNOSIS: No Plan Discharge Plan: Discharge to home with self care. Follow up with established [facility] provider at [facility]; if unable to continue appointments there, follow up to establish local care with Dr. Everett. Drink plenty of water; avoid known triggers. Return to the emergency department as needed for concerning symptoms. Time Spent: Less than 30 Minutes
== END 2018-07-26 15:14 | disposition home or self-care (01) | DRG 812 ==
LOC: ER 22:49 → EH 07-21 02:15 → OBSVTOIN 07-21 02:15 → 4S 07-21 03:11 → 3W 07-21 03:53
PROVIDERS: ADMIT Internal Medicine; ATTEND Internal Medicine
PROC: 30233N1 Transfusion of Nonautologous Red Blood Cells into Peripheral Vein, Percutaneous Approach (ICD-10-PCS; principal; 2018-07-22)
DX: D57.1 Sickle-cell disease without crisis (principal); D57.00 Hb-SS disease with crisis, unspecified; E86.0 Dehydration; R09.02 Hypoxemia; Z90.81 Acquired absence of spleen; Z79.82 Long term (current) use of aspirin; Z79.891 Long term (current) use of opiate analgesic; Z79.899 Other long term (current) drug therapy
CPT/HCPCS: 36415; 36430; 71045; 80048; 80053; 81001; 83735; 84484; 85025; 85027; 85045; 86850; 86900; 86901; 86902; 86920; 93005; 93010; 94762; 96361; 96374; 96375; 96376; 99285; A9270-GY; J1170; J1644; J1885; J3010; J3490; J7030; P9016

== ENCOUNTER 2018-10-11 18:49 | Emergency (ER) | payer OTHER ==
[2018-10-11] MEDS ORDERED: NORMAL SALINE 1000 ML 1,000 ML IV ONE ×2 (20:11→22:15)
[2018-10-11] MEDS ORDERED: DIAZEPAM INJ 10 MG/2 ML DISP.SYRIN IV ONE (20:12)
--- NOTE | 2018-10-11 20:14 | ER Document Report ---
ED Medical Screen (RME) - General Chief Complaint: Jaw Pain Stated Complaint: LOCKED JAW Time Seen by Provider: 10/11/18 20:10 Mode of Arrival: Ambulatory Information source: Patient Notes: Patient presents complaining of left-sided jaw pain for the past 4 days. Patient denies any injury to the jaw. Patient complains of difficulty closing and opening the jaw. Patient states that the muscles tighten up. Patient states symptoms started when he started to have a sickle cell crisis 4 days ago. Patient states that he manage his sickle cell crisis symptoms with [id number] medications. Patient is currently not on any of his usual sickle cell maintenance medications. I have greeted and performed a rapid initial assessment of this patient. A comprehensive ED assessment and evaluation of the patient, analysis of test results and completion of the medical decision making process will be conducted by additional ED providers. TRAVEL OUTSIDE OF THE [place] IN LAST 30 DAYS: No - Related Data Allergies/Adverse Reactions: No Known Allergies Allergy (Verified 10/11/18 18:54) Past Medical History - Social History Frequency of alcohol use: None Drug Abuse: None - Past Medical History Cardiac Medical History: Denies: Hx Coronary Artery Disease, Hx Heart Attack Pulmonary Medical History: Denies: Hx Asthma, Hx COPD, Hx Respiratory Failure Neurological Medical History: Denies: Hx Seizures Endocrine Medical History: Denies: Hx Diabetes Mellitus Type 2 Renal/ Medical History: Denies: Hx Peritoneal Dialysis Musculoskeltal Medical History: Denies Hx Arthritis, Denies Hx Fibromyalgia Skin Medical History: Denies Hx Eczema, Denies Hx Psoriasis Psychiatric Medical History: Denies: Hx Depression Past Surgical History: Reports: Hx Abdominal Surgery - partial spleenectomy, Oth er - Partial splenectomy. Physical Exam - Vital signs Vitals: Temp Pulse Resp BP Pulse Ox 98.2 F 86 16 125/52 L 96 10/11/18 19:37 10/11/18 19:37 10/11/18 19:37 10/11/18 19:37 10/11/18 19:37 - General Notes: Left TMJ tenderness, tenderness with opening or closing mouth. Patient only able to open jaw a cm at the teeth. Course - Vital Signs Vital signs: Temp Pulse Resp BP Pulse Ox 98.2 F 86 16 125/52 L 96 10/11/18 19:37 10/11/18 19:37 10/11/18 19:37 10/11/18 19:37 10/11/18 19:37
[2018-10-11 20:44] LABS: ABSOLUTE RETICS # 0.388 10^6/uL (0.028-0.122); HEMATOCRIT 18.6 % (37.9-51.0); MEAN CORPUSCULAR HEMOGLOBIN 31.2 pg (27.0-33.4); MEAN CORPUSCULAR HGB CONC 34.2 g/dL (32.0-36.0); MEAN CORPUSCULAR VOLUME 91 fl (80-97); PLATELET COUNT 436 10^3/uL (150-450); RED BLOOD COUNT 2.05 10^6/uL (4.35-5.55); RED CELL DISTRIBUTION WIDTH 26.9 % (11.5-14.0); RETICULOCYTE COUNT (AUTO) 18.96 % (0.66-2.85)
[2018-10-11 20:48] LABS: HEMOGLOBIN 6.4 g/dL (13.5-17.0)
[2018-10-11 20:58] LABS: ALANINE AMINOTRANSFERASE 39 U/L (21-72); ALBUMIN 4.3 g/dL (3.5-5.0); ALKALINE PHOSPHATASE 89 U/L (38-126); ANION GAP 7 (5-19); ASPARTATE AMINO TRANSFERASE 31 U/L (17-59); BILIRUBIN,DIRECT 0.2 mg/dL (0.0-0.4); BILIRUBIN,TOTAL 3.3 mg/dL (0.2-1.3); BLOOD UREA NITROGEN 14 mg/dL (7-20); CALCIUM 9.3 mg/dL (8.4-10.2); CARBON DIOXIDE 29 mmol/L (22-30); CHLORIDE 102 mmol/L (98-107); GLUCOSE 92 mg/dL (75-110); POTASSIUM 4.3 mmol/L (3.6-5.0); TOTAL PROTEIN 7.4 g/dL (6.3-8.2)
[2018-10-11 21:07] LABS: ABSOLUTE LYMPHOCYTES# (MANUAL) 1.6 10^3/uL (0.5-4.7); ABSOLUTE MONOCYTES # (MANUAL) 0.7 10^3/uL (0.1-1.4); ANISOCYTOSIS 3+; BAND NEUTROPHILS % (MANUAL) 4 % (3-5); BASOPHILS % (MANUAL) 0 % (0-2); EOSINOPHILS % (MANUAL) 8 % (0-6); LYMPHOCYTES % (MANUAL) 12 % (13-45); MONOCYTES % (MANUAL) 5 % (3-13); PLATELET COMMENT ADEQUATE; SEGMENTED NEUTROPHILS % (MAN) 71 % (42-78); SICKLE RED CELLS 2+; TARGET CELLS 2+; TOTAL CELLS COUNTED 100
[2018-10-11 21:08] LABS: HYPOCHROMASIA 1+; POLYCHROMASIA 2+
[2018-10-11 21:09] LABS: POIKILOCYTOSIS 2+
[2018-10-11 21:14] LABS: NUCLEATED RED BLOOD CELLS 9 /100 WBC (0)
[2018-10-11 22:02] LABS: APPEARANCE,URINE CLEAR; BILIRUBIN,URINE NEGATIVE (NEGATIVE); COLOR,URINE YELLOW; GLUCOSE, URINE NEGATIVE (NEGATIVE); KETONES,URINE NEGATIVE (NEGATIVE); LEUKOCYTE ESTERASE,URINE NEGATIVE (NEGATIVE); NITRITE,URINE NEGATIVE (NEGATIVE); PROTEIN,URINE NEGATIVE (NEGATIVE); URINE SPECIFIC GRAVITY 1.008
[2018-10-11] MEDS ORDERED: HYDROMORPHONE HCL INJ/PF 2 MG/ML AMPULE IV ONE (22:15)
--- NOTE | 2018-10-11 22:48 | ER Document Report ---
ED General - General Chief Complaint: Jaw Pain Stated Complaint: LOCKED JAW Time Seen by Provider: 10/11/18 20:10 Mode of Arrival: Ambulatory Notes: Patient is a pleasant 23-year-old male who presents with complaint of Left-sided jaw pain and swelling. He denies this ever happening in the past. Denies any dental pain. He does have a history of sickle cell disease. He is never had this type of pain in relation to sickle cell disease before. He has had acute chest syndrome before. Denies any chest pain or shortness of breath. No fevers. He denies abdominal pain or vomiting or diarrhea. No joint or extremit y pain. No fevers. No vomiting. TRAVEL OUTSIDE OF THE [place] IN LAST 30 DAYS: No - Related Data Allergies/Adverse Reactions: No Known Allergies Allergy (Verified 10/11/18 18:54) Past Medical History - General Information source: Patient - Social History Smoking Status: Never Smoker Frequency of alcohol use: None Drug Abuse: None Family History: Reviewed & Not Pertinent Patient has suicidal ideation: No Patient has homicidal ideation: No - Past Medical History Cardiac Medical History: Denies: Hx Coronary Artery Disease, Hx Heart Attack Pulmonary Medical History: Denies: Hx Asthma, Hx COPD, Hx Respiratory Failure Neurological Medical History: Denies: Hx Seizures Endocrine Medical History: Denies: Hx Diabetes Mellitus Type 2 Renal/ Medical History: Denies: Hx Peritoneal Dialysis Musculoskeletal Medical History: Denies Hx Arthritis, Denies Hx Fibromyalgia Skin Medical History: Denies Hx Eczema, Denies Hx Psoriasis Psychiatric Medical History: Denies: Hx Depression Past Surgical History: Reports: Hx Abdominal Surgery - partial spleenectomy, Other - Partial splenectomy. Review of Systems - Review of Systems Notes: My Normal Review Basic REVIEW OF SYSTEMS: CONSTITUTIONAL : Denies fever, chills, or sweats. Denies recent illness. EENT: Left-sided jaw pain CARDIOVASCULAR: Denies chest pain. RESPIRATORY: Denies cough, cold, or chest congestion. Denies shortness of breath, difficulty breathing, or wheezing. GASTROINTESTINAL: Denies abdominal pain. Denies nausea, vomiting, or diarrhea. MUSCULOSKELETAL: Denies neck or back pain or joint pain or swelling. SKIN: Denies rash or skin lesions. HEMATOLOGIC : History of sickle cell disease NEUROLOGICAL: Denies altered mental status or loss of consciousness. Denies headache. Denies weakness or paralysis or loss of use of either side. Denies problems with gait or speech. Denies sensory or motor loss. ALL OTHER SYSTEMS REVIEWED AND NEGATIVE. Physical Exam - Vital signs Vitals: Temp Pulse Resp BP Pulse Ox 98.2 F 86 16 125/52 L 96 10/11/18 19:37 10/11/18 19:37 10/11/18 19:37 10/11/18 19:37 10/11/18 19:37 - Notes Notes: General Appearance: Well nourished, alert, cooperative, no acute distress, moderate obvious discomfort. Vitals: reviewed, See vital signs table. Head: Some mild swelling to the left side of the face mainly over the left cheek and angle of the mandible. Eyes: PERRL, EOMI, Conjuctiva clear Mouth: No decreasd moisture, good dentition Throat: No tonsillar inflammation, No airway obstruction, No lymphadenopathy Neck: Supple, no neck tenderness, No neck swelling Lungs: No wheezing, No rales, No rhonci, No accessory muscle use, good air exchange bilaterally. Heart: Normal rate, Regular rythm, No murmur, no rub Abdomen: Normal BS, soft, No rigidity, No abdominal tenderness, No guarding, no rebound, no abdominal masses, no organomegaly Skin: warm, dry, appropriate color, no rash Neuro: speech clear, oriented x 3, normal affect, responds appropriately to questions. Course - Re-evaluation Re-evalutation: 10/12/18 01:04 I did reevaluate the patient. He says that he still has some jaw pain but does not want any further pain medications at this time. 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 Informed I would like to speak with her auto rental supervisor on-call, Dr. Everett, and review the patient's labs with him and see about close outpatient follow-up in the next day or so. Patient says he would be very happy with this plan. I have called the tracer lathe set up operator and they have left a message for Dr. Manisha whitt to call me. His CT scan does not show any evidence of osteomyelitis. Also place an antibiotic as he is at high risk of developing something such as osteomyelitis or infection of the jaw and he does have swelling of the area and therefore I think is appropriate to start him on antibiotic. Patient continues to deny any pain anywhere else other than his jaw. 10/12/18 06:[address] I did speak with Dr. Everett and reviewed the patient's labs with him and plan for outpatient follow-up. Felipe that he would try to get the patient in the nex t week for an appointment. He agrees with plan of antibiotic and outpatient pain treatment. I informed the patient have a low threshold to return to the ER if he has intractable worsening pain, increasing swelling of his face, fevers, or if he feels unwell in any way. Patient agrees to call Dr. Everett's office to set up an appointment for next week. Dictation of this chart was performed using voice recognition software; therefore, there may be some unintended grammatical errors. - Vital Signs Vital signs: Temp Pulse Resp BP Pulse Ox 98.2 F 86 19 126/45 H 96 10/11/18 19:37 10/11/18 19:37 10/12/18 02:01 10/12/18 02:01 10/12/18 02:01 - Laboratory Result Diagrams: 10/11/18 20:29 10/11/18 20:29 Laboratory results interpreted by me: 10/11/18 10/11/18 10/11/18 20:29 20:29 21:25 WBC 13.0 H RBC 2.05 L Hgb 6.4 L Hct 18.6 L RDW 26.9 H Lymphocytes % (Manual) 12 L Eosinophils % (Manual) 8 H Abs Neuts (Manual) 9.8 H Absolute Eos (Manual) 1.0 H Retic Count (auto) 18.96 H Absolute Retic 0.388 H Total Bilirubin 3.3 H Urine Urobilinogen 4.0 H Discharge - Discharge Clinical Impression: Jaw pain Sickle cell anemia Qualifiers: Sickle-cell associated disorders: without crisis Qualified Code(s): D57.1 - Sickle-cell disease without crisis Condition: Good Disposition: HOME, SELF-CARE Additional Instructions: The exact cause of your jaw swelling is not 100% clear. We will treat you for possible infection. Most times swelling along the jaw is related to a dental infection. We did do a CT scan of your face which does not show any evidence of osteomyelitis or bone infection. I have prescribed you some pain medicine. I have also prescribed an antibiotic called clindamycin. I have spoken with our auto rental supervisor, Dr. Everett. Please call his office and they will try to fit you into an appointment next week. Please return to the ER immediately if you have increasing swelling, fevers, pain in other areas of your body, or if you feel like you are worsening in any way. Prescriptions: RX: Oxycodone HCl [Oxy-Ir 5 mg Tablet] 5 mg PO Q6HP PRN #15 tab PRN Reason: RX: Clindamycin HCl [Cleocin 150 mg Capsule] 300 mg PO Q6 #56 capsule Forms: Return to Work
--- NOTE | 2018-10-12 00:47 | RADIOLOGY REPORT (SQ) ---
EXAM: CT maxillofacial with IV contrast CLINICAL DATA: 23-year-old male with left facial swelling. TECHNICAL DATA: Axial CT of the facial bones was performed with intravenous contrast with sagittal and coronal reformatted images. The CT study is performed according to ALARA (as low as reasonably achievable) or ALARA/IMAGE GENTLY, with automatic adjustment of mA and/or kV according to patient size. Performed on: 10/12/2018 at 12:14 AM Comparison: None. FINDINGS: There is no evidence of acute facial bone fracture. The mandible is intact. The temporomandibular joints are preserved. Both globes are intact and are symmetric. The extraocular muscles and optic nerves are symmetric. The intraconal fat is preserved. There is no evidence of intraorbital emphysema. There is mild mucosal thickening of the left sphenoid sinus. The nasal bones are intact. The bony nasal septum slightly deviated towards the right. The anterior maxillary spine is intact. Mastoid air cells and middle ear cavities are clear. There is no significant soft tissue swelling identified. No focal pathologic areas of enhancement are identified. No definite soft tissue abscess is seen. There is no significant infiltration of the subcutaneous fat. No radiopaque foreign bodies are identified. There is no evidence of gas in the soft tissues. IMPRESSION: 1. No evidence of acute facial bone pathology. 2. No focal soft tissue abnormalities are identified. No pathologic areas of enhancement are appreciated on this examination. 3. Mild mucosal thickening of the left sphenoid sinus.
[2018-10-12] MEDS ORDERED: CLINDAMYCIN HCL 150 MG CAPSULE PO ONE (01:03)
[2018-10-12] MEDS ORDERED: OXYCODONE HCL IR 5 MG TABLET PO ONE (01:40)
[2018-10-12 02:24] VITALS: BP 126/45
[2018-10-12 11:41] LABS: PATH REVIEW PATHOLOGIST REVIEWED
== END 2018-10-12 02:24 | disposition home or self-care (01) ==
LOC: ER 18:49
DX: R68.84 Jaw pain (principal); D57.1 Sickle-cell disease without crisis; R22.9 Localized swelling, mass and lump, unspecified
CPT/HCPCS: 99284; 96374; 96375; 86900; 86901; 36415; 86850; 85025; 85045; 80053; 81001; 70487; J3360; J1170; J7030

== ENCOUNTER 2018-11-10 09:10 | Emergency (ER) | payer OTHER ==
[2018-11-10] MEDS ORDERED: DEXAMETHASONE SOD PHOS INJ 10 MG/1 ML VIAL IM ONE (09:33)
[2018-11-10] MEDS ORDERED: KETOROLAC TROMETHAMINE 60 MG/2 ML SDV IM ONE (09:34)
--- NOTE | 2018-11-10 09:40 | ER Document Report ---
ED ENT - General Chief Complaint: Sore Throat Stated Complaint: SORE THROAT Time Seen by Provider: 11/10/18 09:34 Mode of Arrival: Ambulatory Information source: Patient Notes: 23-year-old male presented to ED for complaint of sore throat with yellow drainage. He states his temperature was up to 103 yesterday he has a very with difficulty swallowing. Patient is alert oriented respirations regular and unlabored speaking in full sentences patient is able to swallow but states it is very painful. TRAVEL OUTSIDE OF THE [place] IN LAST 30 DAYS: No - HPI Patient complains to provider of: Nose problem, Throat problem Onset: Other - 2 days ago Onset/Duration: Gradual, Worse Quality of pain: Achy, Stabbing Severity: Moderate Pain Level: 4 Context: Recent Illness Location of pain: Nose, Sinus, Tooth Associated symptoms: Fever, Runny nose, Sinus pain, Sinus drainage, Sore throat, Swollen glands Similar symptoms previously: Yes Recently seen / treated by doctor: Yes - Related Data Allergies/Adverse Reactions: No Known Allergies Allergy (Verified 11/10/18 09:12) Past Medical History - General Information source: Patient - Social History Smoking Status: Never Smoker Chew tobacco use (# tins/day): No Frequency of alcohol use: None Drug Abuse: None Lives with: Family Family History: Reviewed & Not Pertinent Patient has suicidal ideation: No Patient has homicidal ideation: No - Medical History Medical History: Other - Sickle cell - Past Medical History Cardiac Medical History: Reports: None Pulmonary Medical History: Reports: None EENT Medical History: Reports: None Neurological Medical History: Reports: None Endocrine Medical History: Reports: None Renal/ Medical History: Reports: None Malignancy Medical History: Reports None GI Medical History: Reports: None Musculoskeletal Medical History: Reports None Skin Medical History: Reports None Psychiatric Medical History: Reports: None Traumatic Medical History: Reports: None Infectious Medical History: Reports: None Past Surgical History: 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 - Immunizations Immunizations up to date: Yes Hx Diphtheria, Pertussis, Tetanus Vaccination: Yes Review of Systems - Review of Systems Constitutional: Fever, Recent illness EENT: Nose congestion, Nose discharge, Sinus discharge, Throat pain, Difficulty swallowing Cardiovascular: No symptoms reported Respiratory: No symptoms reported Gastrointestinal: No symptoms reported Genitourinary: No symptoms reported Male Genitourinary: No symptoms reported Musculoskeletal: No symptoms reported Skin: No symptoms reported Hematologic/Lymphatic: No symptoms reported Neurological/Psychological: No symptoms reported -: Yes All other systems reviewed and negative Physical Exam - Vital signs Vitals: Temp Pulse Resp BP Pulse Ox 99.2 F 102 H 16 123/54 L 95 11/10/18 09:14 11/10/18 09:14 11/10/18 09:14 11/10/18 09:14 11/10/18 09:14 Interpretation: Normal - General General appearance: Appears well, Alert - HEENT Head: Normocephalic, Atraumatic Eyes: Normal Pupils: PERRL Ears: Normal External canal: Normal Tympanic membrane: Normal Sinus: Normal Nasal: Purulent discharge, Swelling Mucous membranes: Normal Pharynx: Erythema, Exudate, Post nasal drainage, Tonsillar hypertrophy Neck: Anterior cervical chain - Respiratory Respiratory status: No respiratory distress Chest status: Nontender Breath sounds: Normal Chest palpation: Normal - Cardiovascular Rhythm: Regular Heart sounds: Normal auscultation Murmur: No - Abdominal Inspection: Normal Distension: No distension Bowel sounds: Normal Tenderness: Nontender Organomegaly: No organomegaly - Back Back: Normal, Nontender - Extremities General upper extremity: Normal inspection, Nontender, Normal color, Normal ROM, Normal temperature General lower extremity: Normal inspection, Nontender, Normal color, Normal ROM, Normal temperature, Normal weight bearing. No: Manjinder's sign - Neurological Neuro grossly intact: Yes Cognition: Normal Orientation: AAOx4 Gonzalo Coma Scale Eye Opening: Spontaneous [place] Coma Scale Verbal: Oriented Gonzalo Coma Scale Motor: Obeys Commands [place] Coma Scale Total: 15 Speech: Normal Motor strength normal: LUE, RUE, LLE, RLE Sensory: Normal - Psychological Associated symptoms: Normal affect, Normal mood - Skin Skin Temperature: Warm Skin Moisture: Dry Skin Color: Normal Course - Re-evaluation Re-evalutation: 11/10/18 10:22 After performing a Medical Screening Examination, I estimate there is LOW risk for ACUTE CORONARY SYNDROME, RESPIRATORY FAILURE, SEPSIS OR MENINGITIS, thus I consider the discharge disposition reasonable. I have reevaluated this patient multiple times and no significant life threatening changes are noted. The patient and I have discussed the diagnosis and risks, and we agree with discharging home with close follow-up. We also discussed returning to the Emergency Department immediately if new or worsening symptoms occur. We have discussed the symptoms which are most concerning (e.g., changing or worsening pain, trouble swallowing or breathing, neck stiffness, fever) that necessitate immediate return. - Vital Signs Vital signs: Temp Pulse Resp BP Pulse Ox 99.2 F 102 H 16 123/54 L 95 11/10/18 09:14 11/10/18 09:14 11/10/18 09:14 11/10/18 09:14 11/10/18 09:14 Discharge - Discharge Clinical Impression: Viral sore throat URI (upper respiratory infection) Qualifiers: URI type: unspecified viral URI Qualified Code(s): J06.9 - Acute upper respiratory infection, unspecified Condition: Stable Disposition: HOME, SELF-CARE Instructions: Family Physicians / Practices Additional Instructions: UPPER RESPIRATORY ILLNESS: You have a viral infection of the respiratory passages -- a "cold." This common infection causes nasal congestion, drainage, and often sore throat and cough. It is highly contagious. The disease usually lasts about 10 to 14 days. There is no "cure" for the viral infection -- it must run its course. If there is a complication, such as bacterial infection in the nose, sinuses, middle ear, or bronchial tubes, antibiotics may be required. The antibiotics won't affect the virus. Drink plenty of fluids. A humidifier may help. An expectorant medication or decongestant may make you more comfortable. Use acetaminophen or ibuprofen for fever or aches. See the doctor if fever persists over two days, if there is any significant worsening of your symptoms, or if you simply fail to improve as expected. DECONGESTANT MEDICATION: A decongestant medicine has been suggested. Often this medicine is combined in the same tablet with an antihistamine or expectorant. This type of medicine is helpful in treating a bad cold or sinus condition, as well as in treatment of the nasal congestion of hay fever. It is not of much benefit for lung infections. Decongestant medicines are related to stimulants. They can cause an increase in blood pressure and heart rate. Persons with heart disease and high blood pressure should not take decongestants without discussing this with the physician. If you develop palpitations, chest pain, headache, or tremors, stop the m edicine and consult your physician. COUGH-SUPPRESSANT & EXPECTORANT MEDICATION: You are to use a cough medication as needed for relief of symptoms. This medicine is a combination of an expectorant (to make the mucous thinner and more easily "coughed up") and a cough suppressant (to reduce the frequency of coughing). The cough-suppressant medicine is related to narcotics. You may experience mild nausea and sleepiness. Some patients who are very sensitive to narcotics may have stomach pain from this medicine. Taking the medicine with food reduces these side effects. Do not drive or work with machinery until you know how this medicine affects you. The expectorant should have no side effects. Iodine-containing expectorants (such as organidin) should not be taken by persons with active thyroid disease unless approved by your doctor. Call the doctor if you develop shortness of breath, hives, rash, itching, lightheadedness, or severe nausea and vomiting. STEROID MEDICATION: You have been given an injection of or oral medicine of the cortisone/steroid class. This medication is used to control inflammation or allergy. Eyal t is usually only given for a short period of time, until the acute process subsides. There are usually no side effects from short-term use of cortisone-like medications. Some persons feel an increased sense of well-being and are not sleepy at bedtime. Long-term use of cortisone medications is best avoided, unless required for a severe condition. If your condition does not remit, or relapses after the course of corticosteroid medication, you should consult your physician. USE OF ACETAMINOPHEN (Tylenol): Acetaminophen may be taken for pain relief or fever control. It's much safer than aspirin, offering a wider range of "safe" dosages. It is safe during . Some brand names are Tylenol, Panadol, Datril, Anacin 3, Tempra, and Liquiprin. Acetaminophen can be repeated every four hours. The following are maximum recommended dosages: >89 pounds or adults 650 mg to 900 mg Acetaminophen can be repeated every four hours. Maximum dose not to exceed 4000 mg a day. STEROID MEDICATION: You have been given an injection of medicine of the cortisone/steroid class. This medication is used to control inflammation or allergy. It is often continued as a pill for a short period of time, until the acute process subsides. There are usually no side effects from short-term use of cortisone-like medications. Some persons feel an increased sense of well-being and are not sleepy at bedtime. Long-term use of cortisone medications is best avoided, unless required for a severe condition. If your condition does not remit, or relapses after the course of corticosteroid medication, you should consult your physician. Toradol Injection You have been given an injection of ketorolac tromethamine (Toradol). This is an excellent, safe drug for pain control. It also has potent antiinflammatory action. You should have significant pain relief within about one hour. Toradol is not addicting and is non-sedating. It does not interfere with driving or work. Call or return if you develop itching, hives, shortness of breath, or rash. Salt and soda solution 1 quart of water 1 tablespoon of salt 1 teaspoon of baking soda Mixed 3 ingredients together and boil for 1 minute Placed in a covered quart jar Use 1/2 ounce of cold solution to gargle 3 times a day FOLLOW-UP CARE: If you have been referred to a physician for follow-up care, call the physicians office for an appointment as you were instructed or within the next two days. If you experience worsening or a significant change in your symptoms, notify the physician immediately or return to the Emergency Department at any time for re-evaluation.
[2018-11-10 10:23] VITALS: BP 120/48
== END 2018-11-10 10:23 | disposition home or self-care (01) ==
LOC: ER 09:10
DX: J06.9 Acute upper respiratory infection, unspecified (principal); J02.9 Acute pharyngitis, unspecified; B97.89 Other viral agents as the cause of diseases classified elsewhere; R50.9 Fever, unspecified; R13.10 Dysphagia, unspecified; J34.89 Other specified disorders of nose and nasal sinuses; R09.89 Other specified symptoms and signs involving the circulatory and respiratory systems
CPT/HCPCS: 99283; 96372; 36415; 87070; 87880; 86308; J1885; J1100

== ENCOUNTER 2019-03-30 17:45 | Emergency (ER) | payer OTHER ==
[2019-03-30] MEDS ORDERED: MORPHINE SULFATE 10 MG/ML INJ IV ONE (19:02)
[2019-03-30] MEDS ORDERED: NORMAL SALINE 1000 ML 1,000 ML IV ONE ×2 (19:02→21:50)
[2019-03-30] MEDS ORDERED: ONDANSETRON HCL INJ/PF 4 MG/2 ML SDV IV ONE (19:04)
--- NOTE | 2019-03-30 19:07 | ER Document Report ---
ED Medical Screen (RME) - General Chief Complaint: Sickle Cell Crisis Stated Complaint: BACK,CHEST PAIN Time Seen by Provider: 03/30/19 18:56 Primary Care Provider: [facility] [Primary Care Provider] - Follow up as needed Mode of Arrival: Wheelchair Information source: Patient Notes: 23-year-old male patient presenting to the emergency department with complaint of back pain, chest pain and mild shortness of breath. Patient reports he is a sickle cell patient, believes he is in crisis. Patient is seen by Dr. Rowland. Exam: Patient appears short of breath, squirming around in the wheelchair in pain. Alert, answering all questions appropriately. I have greeted and performed a rapid initial assessment of this patient. A comprehensive ED assessment and evaluation of the patient, analysis of test results and completion of the medical decision making process will be conducted by additional ED providers. I have specifically instructed the patient or family members with the patient to immediately return to any nursing staff should anything change in the patient's condition or with their chief complaint. This medical record was dictated with voice recognizing software. There may be grammatical, syntax errors that are unintended. TRAVEL OUTSIDE OF THE [place] IN LAST 30 DAYS: No - Related Data Allergies/Adverse Reactions: No Known Allergies Allergy (Verified 03/30/19 18:56) Past Medical History - Social History Chew tobacco use (# tins/day): No Frequency of alcohol use: None Drug Abuse: None - Past Medical History Cardiac Medical History: Denies: Hx Coronary Artery Disease, Hx Hypercholesterolemia, Hx Hypertension Pulmonary Medical History: Denies: Hx Asthma, Hx COPD Neurological Medical History: Denies: Hx Seizures Endocrine Medical History: Denies: Hx Diabetes Mellitus Type 1, Hx Hyperthyroidism, Hx Hypothyroidism Renal/ Medical History: Denies: Hx Peritoneal Dialysis GI Medical History: Denies: Hx Cirrhosis, Hx Crohn's Disease, Hx Gastroesophageal Reflux Disease, Hx Hepatitis, Hx Ulcerative Colitis Musculoskeltal Medical History: Denies Hx Arthritis, Denies Hx Gout Skin Medical History: Denies Hx Eczema, Denies Hx Psoriasis Infectious Medical History: Denies: Hx Hepatitis Past Surgical History: Reports: Hx Abdominal Surgery - partial spleenectomy, Other - Partial splenectomy. - Immunizations Immunizations up to date: Yes Hx Diphtheria, Pertussis, Tetanus Vaccination: Yes Physical Exam - Vital signs Vitals: Temp Pulse Resp BP Pulse Ox 98.1 F 95 18 117/49 L 97 03/30/19 17:56 03/30/19 17:56 03/30/19 17:56 03/30/19 17:56 03/30/19 17:56 Course - Vital Signs Vital signs: Temp Pulse Resp BP Pulse Ox 98.1 F 95 18 117/49 L 97 03/30/19 18:56 03/30/19 17:56 03/30/19 18:56 03/30/19 17:56 03/30/19 18:56 Doctor's Discharge - Discharge Referrals: [facility] [Primary Care Provider] - Follow up as needed
--- NOTE | 2019-03-30 19:26 | RADIOLOGY REPORT (SQ) ---
EXAM DESCRIPTION: CHEST 2 VIEWS COMPLETED DATE/TIME: 03/30/2019 7:14 pm REASON FOR STUDY: sob,cp / sickle cell patient COMPARISON: 12/08/2018. TECHNIQUE: Frontal and lateral radiographic views of the chest acquired. NUMBER OF VIEWS: Two view. LIMITATIONS: None. FINDINGS: LUNGS AND PLEURA: No opacities, masses or pneumothorax. No pleural effusion. MEDIASTINUM AND HILAR STRUCTURES: No masses or contour abnormalities. HEART AND VASCULAR STRUCTURES: Heart normal size. No evidence for failure. BONES: No acute findings. HARDWARE: None in the chest. OTHER: No other significant finding. IMPRESSION: NO SIGNIFICANT RADIOGRAPHIC FINDING IN THE CHEST. TECHNICAL DOCUMENTATION: JOB ID: [id number] [email or web address]- All Rights Reserved Reading location - IP/workstation name: [email or web address]
[2019-03-30 20:27] LABS: ALBUMIN 5.2 g/dL (3.5-5.0); ALKALINE PHOSPHATASE 76 U/L (38-126); ANION GAP 12 (5-19); ASPARTATE AMINO TRANSFERASE 41 U/L (17-59); BILIRUBIN,DIRECT 0.1 mg/dL (0.0-0.4); BILIRUBIN,TOTAL 2.9 mg/dL (0.2-1.3); BLOOD UREA NITROGEN 15 mg/dL (7-20); CALCIUM 10.3 mg/dL (8.4-10.2); CARBON DIOXIDE 28 mmol/L (22-30); CHLORIDE 99 mmol/L (98-107); GLUCOSE 137 mg/dL (75-110); POTASSIUM 4.4 mmol/L (3.6-5.0); TOTAL PROTEIN 9.1 g/dL (6.3-8.2)
[2019-03-30 20:33] LABS: ABSOLUTE RETICS # 0.401 10^6/uL (0.028-0.122); HEMATOCRIT 22.3 % (37.9-51.0); MEAN CORPUSCULAR HEMOGLOBIN 36.7 pg (27.0-33.4); MEAN CORPUSCULAR HGB CONC 33.8 g/dL (32.0-36.0); MEAN CORPUSCULAR VOLUME 109 fl (80-97); PLATELET COUNT 396 10^3/uL (150-450); RED BLOOD COUNT 2.05 10^6/uL (4.35-5.55); RED CELL DISTRIBUTION WIDTH 25.1 % (11.5-14.0); RETICULOCYTE COUNT (AUTO) 19.52 % (0.66-2.85); WHITE BLOOD COUNT 18.1 10^3/uL (4.0-10.5)
[2019-03-30 20:43] LABS: HEMOGLOBIN 7.6 g/dL (13.5-17.0)
[2019-03-30] MEDS ORDERED: HYDROMORPHONE HCL INJ/PF 2 MG/ML AMPULE IV ONE ×3 (20:54→22:56)
[2019-03-30 21:02] LABS: ABSOLUTE LYMPHOCYTES# (MANUAL) 1.6 10^3/uL (0.5-4.7); ABSOLUTE MONOCYTES # (MANUAL) 1.4 10^3/uL (0.1-1.4); BASOPHILS % (MANUAL) 1 % (0-2); EOSINOPHILS % (MANUAL) 0 % (0-6); LYMPHOCYTES % (MANUAL) 9 % (13-45); MONOCYTES % (MANUAL) 8 % (3-13); NUCLEATED RED BLOOD CELLS 19 /100 WBC (0); SEGMENTED NEUTROPHILS % (MAN) 82 % (42-78); TOTAL CELLS COUNTED 100
[2019-03-30 21:04] LABS: ANISOCYTOSIS 2+; OVALOCYTES SLIGHT; POLYCHROMASIA 2+
[2019-03-30 21:05] LABS: PLATELET COMMENT ADEQUATE; SICKLE RED CELLS SLIGHT; STOMATOCYTES SLIGHT; TARGET CELLS SLIGHT
[2019-03-30 21:10] LABS: TEAR DROP CELLS SLIGHT
--- NOTE | 2019-03-30 23:43 | ER Document Report ---
Entered by GLADYS COLLINS SCRIBE 03/30/[id number] Acting as scribe for:TANNA SANDOVAL IV, MD ED General Pain - General Chief Complaint: Sickle Cell Crisis Stated Complaint: BACK,CHEST PAIN Time Seen by Provider: 03/30/19 18:56 Primary Care Provider: [facility] [NO LOCAL MD] - Follow up as needed Mode of Arrival: Wheelchair Information source: Patient Notes: This 23-year-old male patient with sickle cell disease that presents to the emergency department today with complaints of a "pain crisis". Patient states that for about the last week he has had some mild generalized body aches that he did not think anything of. Patient states yesterday his back pain became slightly worse so he took Tylenol which improved his pain. Patient states today the pain in his back was worse than yesterday so he took an oxycodone which see med to relieve the pain. Patient states some of his friends were going out tonight and he felt better after taking the pain pill, so he went with them. Patient states that a few hours after taking this first oxycodone he could "feel it wear off, and then the pain got way worse". Patient currently has pain in his back, chest, and complains of some very mild shortness of breath. Patient states this is typical for a sickle cell crisis for him. Pertinent PMHx/PSHx: Sickle cell disease - additional PMHx/PSHx not pertinent to this visit as recorded. PCP: (Oncology/hematology) Dr. Everett TRAVEL OUTSIDE OF THE [place] IN LAST 30 DAYS: No - Related Data Allergies/Adverse Reactions: No Known Allergies Allergy (Verified 03/30/19 18:56) Past Medical History - General Information source: Patient - Social History Smoking Status: Unknown if Ever Smoked Chew tobacco use (# tins/day): No Frequency of alcohol use: None Drug Abuse: None Family History: Reviewed & Not Pertinent Patient has suicidal ideation: No Patient has homicidal ideation: No - Past Medical History Cardiac Medical History: Denies: Hx Coronary Artery Disease, Hx Hypercholesterolemia, Hx Hypertension Pulmonary Medical History: Denies: Hx Asthma, Hx COPD Neurological Medical History: Denies: Hx Seizures Endocrine Medical History: Denies: Hx Diabetes Mellitus Type 1, Hx Hyperthyroid ism, Hx Hypothyroidism Renal/ Medical History: Denies: Hx Peritoneal Dialysis GI Medical History: Denies: Hx Cirrhosis, Hx Crohn's Disease, Hx Gastr oesophageal Reflux Disease, Hx Hepatitis, Hx Ulcerative Colitis Musculoskeletal Medical History: Denies Hx Arthritis, Denies Hx Gout Skin Medical History: Denies Hx Eczema, Denies Hx Psoriasis Infectious Medical History: Denies: Hx Hepatitis Past Surgical History: Reports: Hx Abdominal Surgery - partial spleenectomy, Other - Partial splenectomy. - Immunizations Immunizations up to date: Yes Hx Diphtheria, Pertussis, Tetanus Vaccination: Yes Review of Systems - Review of Systems Constitutional: See HPI, Other - pain crisis EENT: No symptoms reported Cardiovascular: No symptoms reported Respiratory: No symptoms reported Gastrointestinal: No symptoms reported Genitourinary: No symptoms reported Male Genitourinary: No symptoms reported Musculoskeletal: See HPI, Muscle pain Skin: No symptoms reported Hematologic/Lymphatic: No symptoms reported Neurological/Psychological: No symptoms reported -: Yes All other systems reviewed and negative Physical Exam - Vital signs Vitals: Temp Pulse Resp BP Pulse Ox 98.1 F 95 18 117/49 L 97 03/30/19 17:56 03/30/19 17:56 03/30/19 17:56 03/30/19 17:56 03/30/19 17:56 - Notes Notes: Physical Exam: General: Alert, appears uncomfortable, writhing around in the bed in apparent pain. HEENT: Normocephalic. Atraumatic. PERRL. Extraocular movements intact. Oropharynx clear. Neck: Supple. Non-tender. Respiratory: No respiratory distress. Clear and equal breath sounds bilaterally. Cardiovascular: Regular rate and rhythm. Abdominal: Normal Inspection. Non-tender. No distension. Normal Bowel Sounds. Back: No gross abnormalities. Extremities: Moves all four extremities. Upper extremities: Normal inspection. Normal ROM. Lower extremities: Normal inspection. No edema. Normal ROM. Neurological: Normal cognition. AAOx4. Normal speech. Psychological: Normal affect. Normal Mood. Skin: Warm. Dry. Normal color. Course - Vital Signs Vital signs: Temp Pulse Resp BP Pulse Ox 98.1 F 95 18 117/49 L 97 03/30/19 18:56 03/30/19 17:56 03/30/19 18:56 03/30/19 17:56 03/30/19 18:56 - Laboratory Result Diagrams: 03/30/19 19:53 03/30/19 19:53 Laboratory results interpreted by me: 03/30/19 03/30/19 19:53 19:53 WBC 18.1 H RBC 2.05 L Hgb 7.6 L Hct 22.3 L MCV 109 H MCH 36.7 H RDW 25.1 H Reticulocyte # 0.401 H Seg Neuts % (Manual) 82 H Lymphocytes % (Manual) 9 L Abs Neuts (Manual) 14.8 H Retic Count (auto) 19.52 H Glucose 137 H Calcium 10.3 H Total Bilirubin 2.9 H Total Protein 9.1 H Albumin 5.2 H Discharge - Discharge Clinical Impression: Sickle cell pain crisis Condition: Good Disposition: HOME, SELF-CARE Additional Instructions: Return to the Emergency Department without delay if any worse. HOME CARE INSTRUCTIONS & INFORMATION: Thank you for choosing us for your medical needs. We hope you're satisfied with the care you received. After you leave, you must properly care for your problem and, at the same time, observe its progress. Any condition can change. Some illnesses can change rapidly over hours or days. If your condition worsens, return to the Emergency Department or see your physician promptly. ABOUT YOUR X-RAYS AND EKG'S: If you had an EKG or X-rays taken, they have been read by the Emergency Physician. The X-rays and EKG's will also be read by a Radiologist or Jeeper Operator within 24 hours. If discrepancies are noted, you will be notified by telephone. Please be certain the ED has a correct telephone number & address where you can be reached. Also, realize that some fractures or abnormalities do not show up on initial X-rays. If your symptoms continue, see your physician. ABOUT YOUR LABORATORY TEST: If you had laboratory tests, the results have been reviewed by the Emergency Physician. Some test results (for example cultures) may not be available for several days. You will be contacted if any test result shows you need additional treatment. Please be certain the ED has a correct telephone number and address where you can be reached. ABOUT YOUR MEDICATIONS: You will receive instructions on how to take your medicine on the prescription label you receive. Additional information may be provided by the Pharmacy. If you have questions afterwards, call the ED for clarification or further instructions. Some prescribed medications may cause drowsiness. Do not perform tasks such as driving a car or operating machinery without consulting your Pharmacist. If you feel you need a refill of pain medication, your condition will need re-evaluation. Please do not call for a refill of any medication. ABOUT YOUR SIGNATURE: Signature of this document acknowledges to followin. Understanding that you received emergency treatment and that you may be released before al medical problems are known or treated. Please be certain the ED has a correct phone number & address where you can be reached. 2. Acknowledgement that you will arrange for follow-up care as recommended. 3. Authorization for the Emergency Physician to provide information to your follow-up Physician in order to maximize your care. AT ANY TIME, IF YOUR SYMPTOMS CHANGE SIGNIFICANTLY OR WORSEN OR YOU DEVELOP NEW SYMPTOMS, RETURN TO THE EMERGENCY DEPARTMENT IMMEDIATELY FOR RE-EVALUATION. OUR GOAL IS TO PROVIDE EXCELLENT MEDICAL CARE! WE HOPE THAT WE HAVE MET YOUR EXPECTATIONS DURING YOUR EMERGENCY DEPARTMENT VISIT AND THAT YOU FEEL YOU HAVE RECEIVED EXCELLENT CARE! Sickle Cell Crisis You have "sickle cell crisis." Sickle cell disease is caused by abnormal hemoglobin. This hemoglobin can deform red blood cells into a sickle shape. These abnormal blood cells can block blood vessels. This causes the pain of sickle cell crisis. Sickle cell crisis can occur any time. But attacks are more likely with acute infection, dehydration, or altitude change. A crisis usually causes pain in the legs, back, abdomen, and chest. Sometimes the pain may ease and return later. The usual treatment is oxygen, pain medication, IV fluids, and treatment of infection. Attacks may take a couple of days to resolve. Return if the pain becomes more severe, or if there are new symptoms. Prescriptions: Oxycodone HCl [Oxycontin Ir 5 Mg Tablet] 1 mg PO Q4H PRN 3 Days #12 tablet PRN Reason: For Pain Referrals: KENY EVERETT MD [ACTIVE STAFF] - 04/02/19 I personally performed the services described in the documentation, reviewed and edited the documentation which was dictated to the scribe in my presence, and it accurately records my words and actions.
[2019-03-31 00:09] VITALS: BP 122/64
== END 2019-03-31 00:07 | disposition home or self-care (01) ==
LOC: ER 17:45
DX: D57.00 Hb-SS disease with crisis, unspecified (principal); M79.10 Myalgia, unspecified site; M54.9 Dorsalgia, unspecified; R07.9 Chest pain, unspecified; R06.02 Shortness of breath; Z79.899 Other long term (current) drug therapy
CPT/HCPCS: 96376; 99284; 96361; 96374; 96375; 36415; 85025; 85045; 80053; 71046; J2270; J1170; J2405; J7030

== ENCOUNTER 2019-07-06 07:34 | Inpatient (IN) | payer OTHER ==
[2019-07-06] MEDS ORDERED: DIPHENHYDRAMINE HCL 50 MG/ML VIAL IV ONE (08:27)
--- NOTE | 2019-07-06 08:51 | ER Document Report ---
ED General - General Chief Complaint: Sickle Cell Crisis Stated Complaint: BODY PAIN Time Seen by Provider: 07/06/19 08:23 Primary Care Provider: KENY QUEEN MD [Primary Care Provider] - Follow up as needed TRAVEL OUTSIDE OF THE [place] IN LAST 30 DAYS: No - HPI Notes: Patient is a 24-year-old male with a history of sickle cell who presents complaining of acute pain crisis that began late last night and has continued today despite use of his pain medicine at home. Patient states that he is having generalized body pain, knee pain, and chest pain. Patient states that he has had pain crises to these areas in the past. Denies drug allergies. The pain does not radiate otherwise. Oncologist is Dr. Queen. No other recent illness. Denies any headache, fever, neck pain, URI, sore throat, palpitations, syncope, cough, shortness of breath, wheeze, dyspnea, abdominal pain, nausea/vomiting/diarrhea, urinary retention, dysuria, hematuria, loss of control of bowel or bladder, numbness/tingling, saddle anesthesia, muscle paralysis/weakness, or rash. - Related Data Allergies/Adverse Reactions: No Known Allergies Allergy (Verified 07/06/19 07:43) Past Medical History - Social History Smoking Status: Never Smoker Chew tobacco use (# tins/day): No Frequency of alcohol use: Occasional Drug Abuse: None Family History: Reviewed & Not Pertinent Patient has suicidal ideation: No Patient has homicidal ideation: No - Past Medical History Cardiac Medical History: Denies: Hx Coronary Artery Disease, Hx Hypercholesterolemia, Hx Hypertension Pulmonary Medical History: Denies: Hx Asthma, Hx COPD Neurological Medical History: Denies: Hx Seizures Endocrine Medical History: Denies: Hx Diabetes Mellitus Type 1, Hx Hyperthyroidism, Hx Hypothyroidism Renal/ Medical History: Denies: Hx Peritoneal Dialysis GI Medical History: Denies: Hx Cirrhosis, Hx Crohn's Disease, Hx Gastroesophageal Reflux Disease, Hx Hepatitis, Hx Ulcerative Colitis Musculoskeletal Medical History: Denies Hx Arthritis, Denies Hx Gout Skin Medical History: Denies Hx Eczema, Denies Hx Psoriasis Infectious Medical History: Denies: Hx Hepatitis Past Surgical History: Reports: Hx Abdominal Surgery - partial spleenectomy, Other - Partial splenectomy. - Immunizations Immunizations up to date: Yes Hx Diphtheria, Pertussis, Tetanus Vaccination: Yes Review of Systems - Review of Systems -: Yes All other systems reviewed and negative Physical Exam - Vital signs Vitals: Temp Pulse Resp BP Pulse Ox 98.1 F 84 16 138/61 H 95 07/06/19 07:38 07/06/19 07:38 07/06/19 07:38 07/06/19 07:38 07/06/19 07:38 - Notes Notes: PHYSICAL EXAMINATION: GENERAL: Well-appearing, well-nourished and in no acute distress. HEAD: Atraumatic, normocephalic. EYES: Pupils equal round and reactive to light, extraocular movements intact, sclera anicteric, conjunctiva are normal. ENT: Nares patent and without discharge. oropharynx clear without exudates. No tonsilar hypertrophy or erythema. Moist mucous membranes. NECK: Normal range of motion, supple without lymphadenopathy LUNGS: Breath sounds clear to auscultation bilaterally and equal. No wheezes rales or rhonchi. HEART: Regular rate and rhythm without murmurs, rubs, gallops. ABDOMEN: Soft, nontender, nondistended abdomen. No guarding, no rebound. Normal bowel sounds present. No CVA tenderness bilaterally. Musculoskeletal: FROM to passive/active. Strength 5+/5. Manjinder neg. No asymmetry to LE's. Extremities: No cyanosis, clubbing, or edema b/l. Peripheral pulses 2+. Capillary refill less than 3 seconds. NEUROLOGICAL: Normal speech, normal gait. PSYCH: Normal mood, normal affect. SKIN: Warm, Dry, normal turgor, no rashes or lesions noted. Course - Re-evaluation Re-evalutation: 07/06/19 11:[address] Queen for consult. 07/06/19 12:52 Dr. Queen called back and I reviewed case with him. He does agree that should the patient continue to have pain despite being treated with a total of 6mg dilaudid that admission would be recommended for further pain control and his group can consult. Vitals have remained appropriate w/o significant tachycardia, tachypnea, or hypoxia. Lungs are clear to auscultation bilaterally. Labs are at baseline and chest x-ray was unremarkable. No significant evidence for acute chest syndrome warranting transfer. 07/06/19 14:06 Pt continues to have moderate pain. I am waiting for a call back from Dr. Anderson for admit. 07/06/19 14:14 Dr. Anderson accepted pt for admit. - Vital Signs Vital signs: Temp Pulse Resp BP Pulse Ox 98.1 F 84 17 145/91 H 100 07/06/19 07:38 07/06/19 07:38 07/06/19 13:30 07/06/19 13:30 07/06/19 13:01 - Laboratory Result Diagrams: 07/06/19 08:52 07/06/19 08:52 Laboratory results interpreted by me: 07/06/19 07/06/19 08:52 08:52 WBC 11.5 H RBC 2.03 L Hgb 7.6 L Hct 21.9 L MCV 108 H MCH 37.3 H RDW 24.8 H Reticulocyte # 0.391 H Retic Count (auto) 19.20 H Total Bilirubin 2.4 H Discharge - Discharge Clinical Impression: Sickle cell pain crisis Condition: Stable Disposition: ADMITTED OBSERVATION Admitting Provider: Monica (Hospitalist) Unit Admitted: Medical Floor Referrals: KENY QUEEN MD [Primary Care Provider] - Follow up as needed
[2019-07-06] MEDS: NORMAL SALINE 1000 ML 1,000 ML IV PRN ×2 (08:55→10:00)
--- NOTE | 2019-07-06 09:00 | RADIOLOGY REPORT (SQ) ---
EXAM DESCRIPTION: CHEST 2 VIEWS COMPLETED DATE/TIME: 07/06/2019 8:39 am REASON FOR STUDY: sickle, CP COMPARISON: Chest films 03/30/2019, 12/08/2018, 07/21/2018 EXAM PARAMETERS: NUMBER OF VIEWS: two views TECHNIQUE: Digital Frontal and Lateral radiographic views of the chest acquired. RADIATION DOSE: NA LIMITATIONS: none FINDINGS: LUNGS AND PLEURA: No opacities, masses or pneumothorax. No pleural effusion. MEDIASTINUM AND HILAR STRUCTURES: No masses or contour abnormalities. HEART AND VASCULAR STRUCTURES: Heart normal size. No evidence for failure. BONES: No acute findings. HARDWARE: None in the chest. OTHER: No other significant finding. IMPRESSION: NO ACUTE RADIOGRAPHIC FINDING IN THE CHEST. TECHNICAL DOCUMENTATION: JOB ID: [id number] 2010 [employer]- All Rights Reserved Reading location - IP/workstation name: [email or web address]
[2019-07-06] MEDS: HYDROMORPHONE HCL INJ/PF 2 MG/ML AMPULE IV PRN ×4 (09:04→18:02)
[2019-07-06 09:33] LABS: ABSOLUTE RETICS # 0.391 10^6/uL (0.028-0.122); HEMATOCRIT 21.9 % (37.9-51.0); MEAN CORPUSCULAR HEMOGLOBIN 37.3 pg (27.0-33.4); MEAN CORPUSCULAR HGB CONC 34.6 g/dL (32.0-36.0); MEAN CORPUSCULAR VOLUME 108 fl (80-97); PLATELET COUNT 380 10^3/uL (150-450); RED BLOOD COUNT 2.03 10^6/uL (4.35-5.55); RED CELL DISTRIBUTION WIDTH 24.8 % (11.5-14.0); WHITE BLOOD COUNT 11.5 10^3/uL (4.0-10.5)
[2019-07-06 09:36] LABS: ALBUMIN 4.5 g/dL (3.5-5.0); ALKALINE PHOSPHATASE 98 U/L (38-126); ANION GAP 9 (5-19); ASPARTATE AMINO TRANSFERASE 34 U/L (17-59); BILIRUBIN,TOTAL 2.4 mg/dL (0.2-1.3); BLOOD UREA NITROGEN 15 mg/dL (7-20); CARBON DIOXIDE 25 mmol/L (22-30); CHLORIDE 104 mmol/L (98-107); GLUCOSE 86 mg/dL (75-110); POTASSIUM 4.5 mmol/L (3.6-5.0); TOTAL PROTEIN 8.1 g/dL (6.3-8.2)
[2019-07-06 09:44] LABS: ABSOLUTE LYMPHOCYTES# (MANUAL) 2.9 10^3/uL (0.5-4.7); ABSOLUTE MONOCYTES # (MANUAL) 0.3 10^3/uL (0.1-1.4); BASOPHILS % (MANUAL) 0 % (0-2); EOSINOPHILS % (MANUAL) 5 % (0-6); LYMPHOCYTES % (MANUAL) 23 % (13-45); METAMYELOCYTES % (MANUAL) 1 % (0-1); MONOCYTES % (MANUAL) 3 % (3-13); NUCLEATED RED BLOOD CELLS 38 /100 WBC (0); SEGMENTED NEUTROPHILS % (MAN) 66 % (42-78); TOTAL CELLS COUNTED 100
[2019-07-06 09:46] LABS: ANISOCYTOSIS 3+; OVALOCYTES SLIGHT; POIKILOCYTOSIS 2+; POLYCHROMASIA 2+; SICKLE RED CELLS 1+
[2019-07-06 09:47] LABS: HOWELL-JOLLY BODIES PRESENT; PAPPENHEIMER BODIES PRESENT; TARGET CELLS 1+
[2019-07-06 09:49] LABS: PLATELET COMMENT ADEQUATE
[2019-07-06 10:38] LABS: HEMOGLOBIN 7.6 g/dL (13.5-17.0)
[2019-07-06] MEDS ORDERED: LORAZEPAM INJ 2 MG/1 ML VIAL IV ONE (11:38)
[2019-07-06] MEDS ORDERED: NORMAL SALINE 1000 ML 1,000 ML IV ONE (11:45)
[2019-07-06 12:08] LABS: APPEARANCE,URINE CLEAR; BILIRUBIN,URINE NEGATIVE (NEGATIVE); COLOR,URINE YELLOW; GLUCOSE, URINE NEGATIVE (NEGATIVE); KETONES,URINE NEGATIVE (NEGATIVE); PROTEIN,URINE NEGATIVE (NEGATIVE); URINE SPECIFIC GRAVITY 1.011; UROBILINOGEN,URINE NEGATIVE mg/dL (<2.0)
[2019-07-06] MEDS ORDERED: HYDROMORPHONE HCL INJ/PF 2 MG/ML AMPULE IV ONE (14:53)
[2019-07-06] MEDS ORDERED: MAGNESIUM HYDROXIDE SUSP 30 ML UDCUP PO PRN (14:55)
[2019-07-06] MEDS ORDERED: TEMAZEPAM 15 MG CAPSULE PO PRN (14:55)
[2019-07-06] MEDS ORDERED: MAG HYDROX/AL HYDROX/SIMETH SUSP 30 ML UDCUP PO PRN (14:55)
[2019-07-06] MEDS ORDERED: IPRATROPIUM/ALBUTEROL 0.5-2.5 MG/3 ML AMPUL NEB PRN (14:55)
[2019-07-06] MEDS ORDERED: ACETAMINOPHEN 325 MG TABLET PO PRN (14:55)
--- NOTE | 2019-07-06 15:27 | PDOC H&P ---
History of Present Illness Admission Date/PCP: 07/06/19 14:32 KENY QUEEN MD Patient complains of: Generalized pain, especially the knees, back. Denies any fever, difficulty breathing or cough History of Present Illness: VIBHA ROWLAND is a 24 year old male Who presents to the emergency room with the above complaints. Patient has a sickle cell disease. He is in crisis. He says the symptoms are similar to his prior crisis. He was given Dilaudid IV in the emergency room but still having quite a bit of pain. His reticulocyte count is noted to be pretty high at 19.6. There is no nausea vomiting cough difficulty breathing dizziness fever or any other pertinent symptoms Past Medical History Cardiac Medical History: Denies: Coronary Artery Disease, Hyperlipidema, Hypertension Pulmonary Medical History: Denies: Asthma, Chronic Obstructive Pulmonary Disease (COPD) Neurological Medical History: Denies: Seizures Endocrine Medical History: Denies: Diabetes Mellitus Type 1, Hyperthyroidism, Hypothyroidism GI Medical History: Denies: Cirrhosis, Crohn's Disease, Gastroesophageal Reflux Disease, Hepat itis, Ulcerative Colitis Musculoskeltal Medical History: Denies: Arthritis, Gout Skin Medical History: Denies: Eczema, Psoriasis Hematology: Reports: Anemia - Sickle cell, Sickle Cell Disease Past Surgical History Past Surgical History: 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 Social History Information Source: Patient Smoking Status: Never Smoker Electronic Cigarette use?: No Frequency of Alcohol Use: None Hx Recreational Drug Use: No Drugs: None Hx Prescription Drug Abuse: No - Advance Directive Resuscitation Status: Full Code Family History Family History: Reviewed & Not Pertinent Parental Family History Reviewed: Yes Children Family History Reviewed: No Sibling(s) Family History Reviewed.: No Medication/Allergy Home Medications: Folic Acid [Folvite 1 mg Tablet] 5 mg PO DAILY 12/12/18 Hydroxyurea [Hydrea 500 mg Capsule] 1,000 mg PO DAILY 12/12/18 Acetaminophen [Tylenol 325 mg Tablet] 650 mg PO ASDIR PRN 03/30/19 Oxycodone HCl [Oxy-Ir 5 mg Tablet] 5 mg PO Q6 03/30/19 Oxycodone HCl [Oxycontin Ir 5 Mg Tablet] 1 mg PO Q4H PRN 3 Days #12 tablet 03/30/19 Allergies/Adverse Reactions: No Known Allergies Allergy (Verified 07/06/19 07:43) Review of Systems All systems: reviewed and no additional remarkable complaints except as stated Nose, Mouth, and Throat: ABSENT: headache(s), sore throat Cardiovascular: ABSENT: chest pain, dyspnea on exertion, orthropnea Respiratory: ABSENT: cough, dyspnea, hemoptysis Gastrointestinal: PRESENT: abdominal pain. ABSENT: nausea, vomiting Musculoskeletal: PRESENT: back pain Integumentary: ABSENT: lesions, wounds Physical Exam Vital Signs: Temp Pulse Resp BP Pulse Ox 98.1 F 84 21 H 124/63 99 07/06/19 07:38 07/06/19 07:38 07/06/19 14:49 07/06/19 14:49 07/06/19 14:49 Intake & Output 07/05/19 07/06/19 07/07/19 06:59 06:59 06:59 Intake Total 3000 Balance 3000 Weight 60.1 kg General appearance: PRESENT: no acute distress, thin, other - Young gentleman, uncomfortable writhing in pain Head exam: PRESENT: atraumatic Eye exam: PRESENT: conjunctiva pale Mouth exam: PRESENT: dry mucosa Neck exam: ABSENT: carotid bruit, tenderness Respiratory exam: PRESENT: clear to auscultation oxana, rhonchi, tachypnea. ABSENT: accessory muscle use Cardiovascular exam: PRESENT: RRR, +S1, +S2 GI/Abdominal exam: PRESENT: normal bowel sounds, soft. ABSENT: distended, guarding, mass, organolmegaly, rebound, tenderness Rectal exam: PRESENT: deferred Neurological exam: PRESENT: alert, awake, oriented to person, oriented to place, oriented to time, oriented to situation. ABSENT: motor sensory deficit Skin exam: PRESENT: dry, intact, warm. ABSENT: cyanosis, rash Results Laboratory Results: 07/06/19 08:52 07/06/19 08:52 07/06/19 07/06/19 07/06/19 08:52 08:52 11:52 WBC 11.5 H RBC 2.03 L Hgb 7.6 L Hct 21.9 L MCV 108 H MCH 37.3 H MCHC 34.6 RDW 24.8 H Plt Count 380 Seg Neutrophils % Not Reportable Retic Count (auto) 19.20 H Sodium 137.6 Potassium 4.5 Chloride 104 Carbon Dioxide 25 Anion Gap 9 BUN 15 Creatinine 0.60 Est GFR ( Amer) > 60 Glucose 86 Calcium 9.0 Total Bilirubin 2.4 H AST 34 Alkaline Phosphatase 98 Total Protein 8.1 Albumin 4.5 Urine Color YELLOW Urine Appearance CLEAR Urine pH 5.0 Ur Specific [place] 1.011 Urine Protein NEGATIVE Urine Glucose (UA) NEGATIVE Urine Ketones NEGATIVE Urine Blood NEGATIVE 07/06/19 08:52 Troponin I < 0.012 Impressions: Chest X-Ray 07/06/19 08:26 IMPRESSION: NO ACUTE RADIOGRAPHIC FINDING IN THE CHEST. Assessment and Plan - Diagnosis (1) Sickle cell pain crisis Is this a current diagnosis for this admission?: Yes Plan: Patient is a sickle cell crisis. He will be given aggressive hydration as well as pain management. We will follow his reticulocyte count as necessary. We will treat him with Dilaudid and continue oral narcotics. Hopefully his symptoms will resolve. 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 His hemoglobin is 7.6. I did review his computer records and it appears his baseline hemoglobin is around that. At this point there is no indication for transfusion although we will monitor his hemoglobin and transfuse as needed (3) Post-splenectomy Is this a current diagnosis for this admission?: Yes Plan: Patient apparently has a history of splenectomy. He is at risk for opportunistic infections. At this time there is no evidence of any kind of acute infection at this time - Plan Summary Summary: Aggressive IVF Analgesics - Time Time Spent with patient: 25-34 minutes Medications reviewed and adjusted accordingly: Yes Anticipated discharge: Home Within: within 72 hours
[2019-07-06] MEDS: DEXTROSE 5%-1/2 NORMAL SALINE 1,000 ML IV PRN ×2 (17:00→22:13)
--- NOTE | 2019-07-06 18:28 | EKG REPORT ---
SEVERITY:- NORMAL ECG - SINUS RHYTHM ST ELEV, PROBABLE NORMAL EARLY REPOL PATTERN : Confirmed by: Deborah Hewitt MD 06-Jul-2019 18:27:26
[2019-07-06] MEDS: PROMETHAZINE HCL INJ 25 MG/1 ML VIAL IV PRN (22:13)
[2019-07-07] MEDS: PANTOPRAZOLE SODIUM 20 MG TABLET.DR PO SCH (05:03)
[2019-07-07] MEDS: DEXTROSE 5%-1/2 NORMAL SALINE 1,000 ML IV PRN ×4 (05:32→22:07)
[2019-07-07 05:44] LABS: ANION GAP 6 (5-19); BLOOD UREA NITROGEN 6 mg/dL (7-20); CALCIUM 8.6 mg/dL (8.4-10.2); CARBON DIOXIDE 26 mmol/L (22-30); CHLORIDE 106 mmol/L (98-107); GLUCOSE 104 mg/dL (75-110); POTASSIUM 4.1 mmol/L (3.6-5.0)
[2019-07-07 05:52] LABS: MEAN CORPUSCULAR HGB CONC 34.2 g/dL (32.0-36.0); MEAN CORPUSCULAR VOLUME 105 fl (80-97); PLATELET COUNT 344 10^3/uL (150-450); RED CELL DISTRIBUTION WIDTH 23.8 % (11.5-14.0); WHITE BLOOD COUNT 12.7 10^3/uL (4.0-10.5)
[2019-07-07 06:05] LABS: HEMOGLOBIN 6.8 g/dL (13.5-17.0)
[2019-07-07 06:06] LABS: ANISOCYTOSIS 3+; POIKILOCYTOSIS 2+; POLYCHROMASIA 2+
[2019-07-07 06:07] LABS: OVALOCYTES 1+; PLATELET COMMENT ADEQUATE; SICKLE RED CELLS 1+; TARGET CELLS 1+; TEAR DROP CELLS SLIGHT
[2019-07-07 06:36] LABS: ABSOLUTE MONOCYTES # (MANUAL) 0.6 10^3/uL (0.1-1.4); BASOPHILS % (MANUAL) 0 % (0-2); EOSINOPHILS % (MANUAL) 1 % (0-6); LYMPHOCYTES % (MANUAL) 16 % (13-45); MONOCYTES % (MANUAL) 5 % (3-13); NUCLEATED RED BLOOD CELLS 14 /100 WBC (0); SEGMENTED NEUTROPHILS % (MAN) 78 % (42-78); TOTAL CELLS COUNTED 100
[2019-07-07] MEDS: OXYCODONE-ACETAMINOPHEN 5-325 MG TABLET PO PRN ×2 (10:11→22:06)
[2019-07-07] MEDS: DOCUSATE SODIUM 100 MG CAPSULE PO SCH (10:11)
[2019-07-07] MEDS: FOLIC ACID 1 MG TABLET PO SCH (10:12)
[2019-07-07] MEDS: HYDROXYUREA 500 MG CAPSULE PO SCH (10:12)
[2019-07-07] MEDS: ENOXAPARIN SODIUM INJ 40 MG/0.4 ML DISP.SYRIN SUBCUT SCH (10:19)
--- NOTE | 2019-07-07 15:36 | PDOC PROGRESS REPORT ---
Subjective Progress Note for:: 07/07/19 Subjective:: Patient says he feels slightly better. There is no fever or chest pain. Reason For Visit: SICKLE CELL CRISIS Physical Exam Vital Signs: Temp Pulse Resp BP Pulse Ox 98.7 F 90 21 H 114/52 L 99 07/07/19 11:31 07/07/19 11:31 07/07/19 11:31 07/07/19 11:31 07/07/19 11:31 Intake & Output 07/06/19 07/07/19 07/08/19 06:59 06:59 06:59 Intake Total 5222 1417 Output Total 1401 800 Balance 3821 617 Weight 60.8 kg General appearance: PRESENT: no acute distress, well-developed, well-nourished Head exam: PRESENT: atraumatic, normocephalic Eye exam: PRESENT: conjunctiva pink, EOMI, PERRLA. ABSENT: scleral icterus Ear exam: PRESENT: normal external ear exam Mouth exam: PRESENT: moist, tongue midline Neck exam: ABSENT: carotid bruit, JVD, lymphadenopathy, thyromegaly Respiratory exam: PRESENT: clear to auscultation oxana. ABSENT: rales, rhonchi, wheezes Cardiovascular exam: PRESENT: RRR. ABSENT: diastolic murmur, rubs, systolic mu rmur Pulses: PRESENT: normal dorsalis pedis pul Vascular exam: PRESENT: normal capillary refill GI/Abdominal exam: PRESENT: normal bowel sounds, soft. ABSENT: distended, guarding, mass, organolmegaly, rebound, tenderness Rectal exam: PRESENT: deferred Extremities exam: PRESENT: full ROM. ABSENT: calf tenderness, clubbing, pedal edema Neurological exam: PRESENT: alert, awake, oriented to person, oriented to place, oriented to time, oriented to situation, CN II-XII grossly intact. ABSENT: motor sensory deficit Psychiatric exam: PRESENT: appropriate affect, normal mood. ABSENT: homicidal ideation, suicidal ideation Skin exam: PRESENT: dry, intact, warm. ABSENT: cyanosis, rash Results Laboratory Results: 07/07/19 04:25 07/07/19 04:25 07/07/19 07/07/19 04:25 04:25 WBC 12.7 H RBC 1.90 L Hgb 6.8 L Hct 20.0 L MCV 105 H MCH 36.0 H MCHC 34.2 RDW 23.8 H Plt Count 344 Seg Neutrophils % Not Reportable Sodium 138.1 Potassium 4.1 Chloride 106 Carbon Dioxide 26 Anion Gap 6 BUN 6 L Creatinine 0.48 L Est GFR ( Amer) > 60 Glucose 104 Calcium 8.6 07/06/19 08:52 Troponin I < 0.012 Impressions: Chest X-Ray 07/06/19 08:26 IMPRESSION: NO ACUTE RADIOGRAPHIC FINDING IN THE CHEST. 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 There is no immediate need for transfusion at this time. We will recheck it in a.m. and decide (3) Post-splenectomy Is this a current diagnosis for this admission?: Yes - Plan Summary Summary: Aggressive IVF Analgesics Monitor H&H - Inpatient Certification Based on my medical assessment, after consideration of the patient's comorbidities, presenting symptoms, or acuity I expect that the services needed warrant INPATIENT care.: Yes Medical Necessity: Need for Pain Control, Risk of Complication if Not Cared For in Hospital
[2019-07-08] MEDS: PANTOPRAZOLE SODIUM 20 MG TABLET.DR PO SCH (05:27)
[2019-07-08] MEDS: DEXTROSE 5%-1/2 NORMAL SALINE 1,000 ML IV PRN ×4 (05:28→18:45)
[2019-07-08 06:24] LABS: ABSOLUTE BASOPHILS # (AUTO) 0.1 10^3/uL (0.0-0.2); ABSOLUTE EOSINOPHILS # (AUTO) 0.4 10^3/uL (0.0-0.6); ABSOLUTE MONOCYTES (AUTO) 1.7 10^3/uL (0.1-1.4); ABSOLUTE NEUT (AUTO) 7.7 10^3/uL (1.7-8.2); ABSOLUTE RETICS # 0.222 10^6/uL (0.028-0.122); BASOPHILS % (AUTO) 0.5 % (0-2); EOSINOPHILS % (AUTO) 3.5 % (0-6); HEMATOCRIT 19.8 % (37.9-51.0); LYMPHOCYTES % (AUTO) 16.9 % (13-45); MEAN CORPUSCULAR HEMOGLOBIN 37.1 pg (27.0-33.4); MEAN CORPUSCULAR HGB CONC 35.3 g/dL (32.0-36.0); MEAN CORPUSCULAR VOLUME 105 fl (80-97); MONOCYTES % (AUTO) 14.3 % (3-13); PLATELET COUNT 317 10^3/uL (150-450); RED BLOOD COUNT 1.88 10^6/uL (4.35-5.55); RED CELL DISTRIBUTION WIDTH 23.4 % (11.5-14.0); RETICULOCYTE COUNT (AUTO) 11.78 % (0.66-2.85); SEGMENTED NEUTROPHILS % (AUTO) 64.8 % (42-78); TOTAL CELLS COUNTED % (AUTO) 100 %
[2019-07-08 06:33] LABS: BLOOD UREA NITROGEN 6 mg/dL (7-20); CALCIUM 8.6 mg/dL (8.4-10.2); GLUCOSE 109 mg/dL (75-110)
[2019-07-08 06:34] LABS: ANION GAP 8 (5-19); CARBON DIOXIDE 27 mmol/L (22-30); CHLORIDE 103 mmol/L (98-107); POTASSIUM 3.9 mmol/L (3.6-5.0)
[2019-07-08 06:49] LABS: ABSOLUTE LYMPHOCYTES# (MANUAL) 2.6 10^3/uL (0.5-4.7); ABSOLUTE MONOCYTES # (MANUAL) 1.3 10^3/uL (0.1-1.4); BASOPHILS % (MANUAL) 0 % (0-2); EOSINOPHILS % (MANUAL) 4 % (0-6); LYMPHOCYTES % (MANUAL) 22 % (13-45); MONOCYTES % (MANUAL) 11 % (3-13); NUCLEATED RED BLOOD CELLS 14 /100 WBC (0); SEGMENTED NEUTROPHILS % (MAN) 63 % (42-78); TOTAL CELLS COUNTED 100
[2019-07-08 06:51] LABS: ANISOCYTOSIS 3+; PLATELET COMMENT ADEQUATE; POIKILOCYTOSIS 1+; POLYCHROMASIA SLIGHT; SICKLE RED CELLS 1+; TARGET CELLS SLIGHT; TOXIC VACUOLATION PRESENT; WHITE BLOOD COUNT 12.1 10^3/uL (4.0-10.5)
[2019-07-08] MEDS: FOLIC ACID 1 MG TABLET PO SCH (09:37)
[2019-07-08] MEDS: OXYCODONE-ACETAMINOPHEN 5-325 MG TABLET PO PRN ×2 (09:37→17:31)
[2019-07-08] MEDS: HYDROXYUREA 500 MG CAPSULE PO SCH (09:37)
[2019-07-08] MEDS: ENOXAPARIN SODIUM INJ 40 MG/0.4 ML DISP.SYRIN SUBCUT SCH (09:41)
[2019-07-08] MEDS: DOCUSATE SODIUM 100 MG CAPSULE PO SCH (09:41)
--- NOTE | 2019-07-08 12:48 | PDOC PROGRESS REPORT ---
Subjective Progress Note for:: 07/08/19 Subjective:: Patient denies any new symptoms. There is no fever or chest pain. He is requiring minimal analgesia Reason For Visit: SICKLE CELL CRISIS Physical Exam Vital Signs: Temp Pulse Resp BP Pulse Ox 99.3 F 83 16 104/47 L 100 07/08/19 11:38 07/08/19 11:38 07/08/19 11:38 07/08/19 11:38 07/08/19 12:34 Intake & Output 07/07/19 07/08/19 07/09/19 06:59 06:59 06:59 Intake Total 5222 4997 827 Output Total 1401 800 Balance 3821 4197 827 Weight 60.8 kg 61.7 kg General appearance: PRESENT: no acute distress, well-developed, well-nourished Head exam: PRESENT: atraumatic, normocephalic Eye exam: PRESENT: conjunctiva pink, EOMI, PERRLA. ABSENT: scleral icterus Ear exam: PRESENT: normal external ear exam Mouth exam: PRESENT: moist, tongue midline Neck exam: ABSENT: carotid bruit, JVD, lymphadenopathy, thyromegaly Respiratory exam: PRESENT: clear to auscultation oxana. ABSENT: rales, rhonchi, wheezes Cardiovascular exam: PRESENT: RRR. ABSENT: diastolic murmur, rubs, systolic murmur Pulses: PRESENT: normal dorsalis pedis pul Vascular exam: PRESENT: normal capillary refill GI/Abdominal exam: PRESENT: normal bowel sounds, soft. ABSENT: distended, guarding, mass, organolmegaly, rebound, tenderness Rectal exam: PRESENT: deferred Extremities exam: PRESENT: full ROM. ABSENT: calf tenderness, clubbing, pedal edema Neurological exam: PRESENT: alert, awake, oriented to person, oriented to place, oriented to time, oriented to situation, CN II-XII grossly intact. ABSENT: motor sensory deficit Psychiatric exam: PRESENT: appropriate affect, normal mood. ABSENT: homicidal ideation, suicidal ideation Skin exam: PRESENT: dry, intact, warm. ABSENT: cyanosis, rash Results Laboratory Results: 07/08/19 05:55 07/08/19 05:55 07/08/19 07/08/19 05:55 05:55 WBC 12.1 H RBC 1.88 L Hgb 7.0 L Hct 19.8 L MCV 105 H MCH 37.1 H MCHC 35.3 RDW 23.4 H Plt Count 317 Seg Neutrophils % 64.8 Retic Count (auto) 11.78 H Sodium 137.7 Potassium 3.9 Chloride 103 Carbon Dioxide 27 Anion Gap 8 BUN 6 L Creatinine 0.52 Est GFR ( Amer) > 60 Glucose 109 Calcium 8.6 07/06/19 08:52 Troponin I < 0.012 Impressions: Chest X-Ray 07/06/19 08:26 IMPRESSION: NO ACUTE RADIOGRAPHIC FINDING IN THE CHEST. Assessment and Plan - Diagnosis (1) Sickle cell pain crisis Is this a current diagnosis for this admission?: Yes Plan: We will continue with aggressive IV fluid hydration as well as pain management Patient does feel better. He is reticulocyte count is down to about 11.9. HALINA globin is stable to in fact improved to 7. At this point there is no transfusion indicated. We will continue with IV fluids and pain management and hopefully patient can be discharged home in a.m. 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
[2019-07-08] MEDS: PROMETHAZINE HCL INJ 25 MG/1 ML VIAL IV PRN (18:44)
[2019-07-08] MEDS: HYDROMORPHONE HCL INJ/PF 2 MG/ML AMPULE IV PRN (19:35)
[2019-07-09] MEDS: DEXTROSE 5%-1/2 NORMAL SALINE 1,000 ML IV PRN ×3 (01:25→11:00)
[2019-07-09] MEDS: PANTOPRAZOLE SODIUM 20 MG TABLET.DR PO SCH (05:02)
[2019-07-09 05:14] LABS: ABSOLUTE RETICS # 0.171 10^6/uL (0.028-0.122); HEMATOCRIT 19.2 % (37.9-51.0); MEAN CORPUSCULAR HEMOGLOBIN 36.8 pg (27.0-33.4); MEAN CORPUSCULAR HGB CONC 35.2 g/dL (32.0-36.0); MEAN CORPUSCULAR VOLUME 105 fl (80-97); PLATELET COUNT 329 10^3/uL (150-450); RED BLOOD COUNT 1.84 10^6/uL (4.35-5.55); RED CELL DISTRIBUTION WIDTH 20.5 % (11.5-14.0); RETICULOCYTE COUNT (AUTO) 9.28 % (0.66-2.85); WHITE BLOOD COUNT 10.3 10^3/uL (4.0-10.5)
[2019-07-09 05:52] LABS: ABSOLUTE LYMPHOCYTES# (MANUAL) 1.2 10^3/uL (0.5-4.7); ABSOLUTE MONOCYTES # (MANUAL) 1.1 10^3/uL (0.1-1.4); BASOPHILS % (MANUAL) 0 % (0-2); EOSINOPHILS % (MANUAL) 0 % (0-6); LYMPHOCYTES % (MANUAL) 11 % (13-45); MONOCYTES % (MANUAL) 11 % (3-13); SEGMENTED NEUTROPHILS % (MAN) 77 % (42-78); TOTAL CELLS COUNTED 100
[2019-07-09 05:59] LABS: POLYCHROMASIA 2+; TOXIC GRANULATION 1+
[2019-07-09 06:00] LABS: ANISOCYTOSIS 2+; HOWELL-JOLLY BODIES PRESENT; OVALOCYTES 1+; PLATELET COMMENT ADEQUATE; POIKILOCYTOSIS 3+; SICKLE RED CELLS 1+; TARGET CELLS 1+; TEAR DROP CELLS 1+
[2019-07-09 06:01] LABS: NUCLEATED RED BLOOD CELLS 14 /100 WBC (0)
[2019-07-09] MEDS: FOLIC ACID 1 MG TABLET PO SCH (10:00)
[2019-07-09] MEDS: HYDROXYUREA 500 MG CAPSULE PO SCH (10:00)
[2019-07-09] MEDS: DOCUSATE SODIUM 100 MG CAPSULE PO SCH (10:18)
[2019-07-09] MEDS: ENOXAPARIN SODIUM INJ 40 MG/0.4 ML DISP.SYRIN SUBCUT SCH (10:19)
[2019-07-09 12:34] VITALS: BP 120/45
--- NOTE | 2019-07-09 12:50 | PDOC DISCHARGE SUMMARY ---
Impression - Admit/DC Date/PCP Admission Date/Primary Care Provider: 07/06/19 14:32 KENY QUEEN MD Discharge Date: 07/09/19 - Discharge Diagnosis (1) Sickle cell pain crisis Is this a current diagnosis for this admission?: Yes (2) Anemia Is this a current diagnosis for this admission?: Yes (3) Post-splenectomy Is this a current diagnosis for this admission?: Yes - Assessment Summary: Aggressive IVF, will increase to 250 mL/h Analgesics Monitor H&H - Additional Information Resuscitation Status: Full Code Discharge Diet: Regular, Other (Comments) - Increase Fluid intake Discharge Activity: Activity As Tolerated Referrals: KENY QUEEN MD [Primary Care Provider] - Follow up as needed Prescriptions: Oxycodone HCl/Acetaminophen [Percocet 5-325 mg Tablet] 1 tab PO Q4HP PRN #14 tablet PRN Reason: Promethazine HCl [Phenergan 25 mg Tablet] 25 mg PO Q6HP PRN #14 tablet PRN Reason: Home Medications: Folic Acid [Folvite 1 mg Tablet] 1 mg PO DAILY 12/12/18 Hydroxyurea [Hydrea 500 mg Capsule] 1,000 mg PO DAILY 12/12/18 Oxycodone HCl/Acetaminophen [Percocet 5-325 mg Tablet] 1 tab PO Q4HP PRN #14 t ablet 07/09/19 Promethazine HCl [Phenergan 25 mg Tablet] 25 mg PO Q6HP PRN #14 tablet 07/09/19 History of Present Illiness History of Present Illness: VIBHA ROWLAND is a 24 year old male Who presents to the emergency room with the above complaints. Patient has a sickle cell disease. He is in crisis. He says the symptoms are similar to his prior crisis. He was given Dilaudid IV in the emergency room but still having quite a bit of pain. His reticulocyte count is noted to be pretty high at 19.6. There is no nausea vomiting cough difficulty breathing dizziness fever or any other pertinent symptoms Hospital Course Hospital Course: Patient presented to the emergency room with sickle cell crisis. He was in pain in his abdomen and back on Jardiance similar to his usual crisis. Patient was started on aggressive IV fluids. He received narcotics although his requirement was actually pretty minimal. Patient did well with his pain control and was able to get by on minimal narcotics. His initial reticulocyte count was about 19.6. This has declined to 7.6 today. His hemoglobin is stable at about 6.8. Patient required no blood transfusion during his hospitalization. That patient can be discharged home to continue his recovery at home with adequate fluid intake as well as analgesia so he is been discharged home stable condition Physical Exam Vital Signs: Temp Pulse Resp BP Pulse Ox 99.0 F 94 18 120/45 L 92 07/09/19 11:50 07/09/19 11:50 07/09/19 11:50 07/09/19 11:50 07/09/19 12:00 Intake & Output 07/08/19 07/09/19 07/10/19 06:59 06:59 06:59 Intake Total 4997 6261 1000 Output Total 800 800 Balance 4197 5491 1000 Weight 61.7 kg 60.1 kg General appearance: PRESENT: no acute distress, well-developed, well-nourished, other - Young pleasant gentleman Head exam: PRESENT: atraumatic, normocephalic Neck exam: ABSENT: JVD, tenderness Respiratory exam: PRESENT: clear to auscultation oxana, unlabored. ABSENT: chest wall tenderness, rales, rhonchi Cardiovascular exam: PRESENT: RRR, +S1, +S2 GI/Abdominal exam: PRESENT: soft. ABSENT: tenderness Rectal exam: PRESENT: deferred Neurological exam: PRESENT: alert, awake, oriented to person, oriented to place, oriented to time, oriented to situation, CN II-XII grossly intact. ABSENT: motor sensory deficit Psychiatric exam: PRESENT: appropriate affect Skin exam: PRESENT: dry, intact, warm. ABSENT: cyanosis, rash Results Laboratory Results: WBC 10.3 10^3/uL (4.0-10.5) 07/09/19 04:23 RBC 1.84 10^6/uL (4.35-5.55) L 07/09/19 04:23 Hgb 6.8 g/dL (13.5-17.0) L 07/09/19 04:23 Hct 19.2 % (37.9-51.0) L 07/09/19 04:23 MCV 105 fl (80-97) H 07/09/19 04:23 MCH 36.8 pg (27.0-33.4) H 07/09/19 04:23 MCHC 35.2 g/dL (32.0-36.0) 07/09/19 04:23 RDW 20.5 % (11.5-14.0) H 07/09/19 04:23 Plt Count 329 10^3/uL (150-450) 07/09/19 04:23 Lymph % (Auto) Not Reportable 07/09/19 04:23 [place] % (Auto) Not Reportable 07/09/19 04:23 Eos % (Auto) Not Reportable 07/09/19 04:23 Baso % (Auto) Not Reportable 07/09/19 04:23 Reticulocyte # 0.171 10^6/uL (0.028-0.122) H 07/09/19 04:23 Absolute Neuts (auto) Not Reportable 07/09/19 04:23 Absolute Lymphs (auto) Not Reportable 07/09/19 04:23 Absolute Monos (auto) Not Reportable 07/09/19 04:23 Absolute Eos (auto) Not Reportable 07/09/19 04:23 Absolute Basos (auto) Not Reportable 07/09/19 04:23 Total Counted 100 07/09/19 04:23 Seg Neutrophils % Not Reportable 07/09/19 04:23 Seg Neuts % (Manual) 77 % (42-78) 07/09/19 04:23 Lymphocytes % (Manual) 11 % (13-45) L 07/09/19 04:23 Atypical Lymphs % 1 % (0) 07/09/19 04:23 Monocytes % (Manual) 11 % (3-13) 07/09/19 04:23 Eosinophils % (Manual) 0 % (0-6) 07/09/19 04:23 Basophils % (Manual) 0 % (0-2) 07/09/19 04:23 Metamyelocytes % 1 % (0-1) 07/06/19 08:52 Abs Neuts (Manual) 7.9 10^3/uL (1.7-8.2) 07/09/19 04:23 Abs Lymphs (Manual) 1.2 10^3/uL (0.5-4.7) 07/09/19 04:23 Abs Monocytes (Manual) 1.1 10^3/uL (0.1-1.4) 07/09/19 04:23 Absolute Eos (Manual) 0.0 10^3/uL (0.0-0.6) 07/09/19 04:23 Abs Basophils (Manual) 0.0 10^3/uL (0.0-0.2) 07/09/19 04:23 Nucleated RBCs 14 /100 WBC (0) 07/09/19 04:23 Toxic Granulation 1+ 07/09/19 04:23 Toxic Vacuolation PRESENT 07/08/19 05:55 Platelet Comment ADEQUATE 07/09/19 04:23 Polychromasia 2+ 07/09/19 04:23 Poikilocytosis 3+ 07/09/19 04:23 Anisocytosis 2+ 07/09/19 04:23 Macrocytosis 2+ 07/08/19 05:55 Pappenheimer Bodies PRESENT 07/06/19 08:52 Sickle Cells 1+ 07/09/19 04:23 Target Cells 1+ 07/09/19 04:23 Tear Drop Cells 1+ 07/09/19 04:23 Ovalocytes 1+ 07/09/19 04:23 [place] Bodies PRESENT 07/09/19 04:23 RBC Morph Comment 07/06/19 08:52 Retic Count (auto) 9.28 % (0.66-2.85) H 07/09/19 04:23 Sodium 137.7 mmol/L (137-145) 07/08/19 05:55 Potassium 3.9 mmol/L (3.6-5.0) 07/08/19 05:55 Chloride 103 mmol/L (98-107) 07/08/19 05:55 Carbon Dioxide 27 mmol/L (22-30) 07/08/19 05:55 Anion Gap 8 (5-19) 07/08/19 05:55 BUN 6 mg/dL (7-20) L 07/08/19 05:55 Creatinine 0.52 mg/dL (0.52-1.25) 07/08/19 05:55 Est GFR ( Amer) > 60 (>60) 07/08/19 05:55 Est GFR (MDRD) Non-Af > 60 (>60) 07/08/19 05:55 Glucose 109 mg/dL (75-110) 07/08/19 05:55 Calcium 8.6 mg/dL (8.4-10.2) 07/08/19 05:55 Total Bilirubin 2.4 mg/dL (0.2-1.3) H 07/06/19 08:52 Direct Bilirubin 0.0 mg/dL (0.0-0.4) 07/06/19 08:52 Neonat Total Bilirubin Not Reportable 07/06/19 08:52 Neonat Direct Bilirubin Not Reportable 07/06/19 08:52 Neonat Indirect Bili Not Reportable 07/06/19 08:52 AST 34 U/L (17-59) 07/06/19 08:52 ALT 20 U/L (<50) 07/06/19 08:52 Alkaline Phosphatase 98 U/L (38-126) 07/06/19 08:52 Troponin I < 0.012 ng/mL 07/06/19 08:52 Total Protein 8.1 g/dL (6.3-8.2) 07/06/19 08:52 Albumin 4.5 g/dL (3.5-5.0) 07/06/19 08:52 Urine Color YELLOW 07/06/19 11:52 Urine Appearance CLEAR 07/06/19 11:52 Urine pH 5.0 (5.0-9.0) 07/06/19 11:52 Ur Specific [place] 1.011 07/06/19 11:52 Urine Protein NEGATIVE mg/dL (NEGATIVE) 07/06/19 11:52 Urine Glucose (UA) NEGATIVE mg/dL (NEGATIVE) 07/06/19 11:52 Urine Ketones NEGATIVE mg/dL (NEGATIVE) 07/06/19 11:52 Urine Blood NEGATIVE (NEGATIVE) 07/06/19 11:52 Urine Nitrite (Reflex) NEGATIVE (NEGATIVE) 07/06/19 11:52 Urine Bilirubin NEGATIVE (NEGATIVE) 07/06/19 11:52 Urine Urobilinogen NEGATIVE mg/dL (<2.0) 07/06/19 11:52 Leukocyte Esterase Rfl NEGATIVE (NEGATIVE) 07/06/19 11:52 Urine WBC (Reflex) < 1 /HPF 07/06/19 11:52 Urine Mucus (Auto) RARE /LPF 07/06/19 11:52 Urine Ascorbic Acid NEGATIVE (NEGATIVE) 07/06/19 11:52 07/06/19 08:52 Troponin I < 0.012 Impressions: Chest X-Ray 07/06/19 08:26 IMPRESSION: NO ACUTE RADIOGRAPHIC FINDING IN THE CHEST. Plan Time Spent: Less than 30 Minutes Stroke Is this a Stroke Patient?: No Acute Heart Failure - Is this a Heart Failure Patient?: No
[2019-07-09 12:57] LABS: PATH REVIEW PATHOLOGIST REVIEWED
[2019-07-10 10:29] LABS: HEMOGLOBIN 6.8 g/dL (13.5-17.0)
== END 2019-07-09 13:45 | disposition home or self-care (01) | DRG 812 ==
LOC: ER 07:34 → EH 14:32 → OBSVTOIN 14:32 → 4N 16:04
PROVIDERS: ADMIT Internal Medicine; ATTEND Internal Medicine
DX: D57.00 Hb-SS disease with crisis, unspecified (principal); Z90.81 Acquired absence of spleen
CPT/HCPCS: 36415; 71046; 80048; 80053; 81001; 84484; 85025; 85045; 93005; 93010; 96361; 96374; 96375; 96376; 99285; J1170; J1200; J2060; J2550; J7030

== ENCOUNTER 2019-08-03 04:20 | Inpatient (IN) | payer SELFPAY ==
[2019-08-03] MEDS ORDERED: HYDROMORPHONE HCL INJ/PF 2 MG/ML AMPULE IV ONE ×4 (04:43→09:32)
[2019-08-03] MEDS ORDERED: ONDANSETRON HCL INJ/PF 4 MG/2 ML SDV IV ONE (04:43)
--- NOTE | 2019-08-03 04:47 | ER Document Report ---
ED General - General TRAVEL OUTSIDE OF THE [place] IN LAST 30 DAYS: No - Related Data Home Medications: folic acid. hydroxyuria <PRAVEENA SULLIVAN - Last Filed: 08/03/19 08:02> <ANGELICA PIERCE - Last Filed: 08/03/19 09:47> - General Chief Complaint: Back Pain Stated Complaint: SICKLE CELL CRISIS Time Seen by Provider: 08/03/19 04:31 Primary Care Provider: KENY EVERETT MD [Primary Care Provider] - Follow up tomorrow Notes: Patient is a 24-year-old male with a history of sickle cell anemia comes emergency department for chief complaint of body pain. He states pain is worse in his back, he also has intermittent pain in his chest and his extremities. He denies headache, difficulty breathing, fever, abdominal pain, vomiting. He states he thinks he is developing crisis from the weather change. He is on fol ic acid and hydroxyurea, follows with hematology Dr. Evertet. He states he takes as needed pain medication, states this was not helping so he came in for evaluation and treatment. Patient has had a partial splenectomy. (PRAVEENA SULLIVAN) - Related Data Allergies/Adverse Reactions: diphenhydramine [From Benadryl] Adverse Reaction (Verified 08/03/19 04:33) VOMITING Past Medical History - General Information source: Patient - Social History Smoking Status: Never Smoker Frequency of alcohol use: Rare Drug Abuse: None Lives with: Family Family History: Reviewed & Not Pertinent Patient has suicidal ideation: No Patient has homicidal ideation: No - Past Medical History Cardiac Medical History: Denies: Hx Coronary Artery Disease, Hx Hypercholesterolemia, Hx Hypertension Pulmonary Medical History: Denies: Hx Asthma, Hx COPD Neurological Medical History: Denies: Hx Seizures Endocrine Medical History: Denies: Hx Diabetes Mellitus Type 1, Hx Hyperthyroidism, Hx Hypothyroidism Renal/ Medical History: Denies: Hx Peritoneal Dialysis GI Medical History: Denies: Hx Cirrhosis, Hx Crohn's Disease, Hx Gastroeso phageal Reflux Disease, Hx Hepatitis, Hx Ulcerative Colitis Musculoskeletal Medical History: Denies Hx Arthritis, Denies Hx Gout Skin Medical History: Denies Hx Eczema, Denies Hx Psoriasis Infectious Medical History: Denies: Hx Hepatitis Past Surgical History: Reports: Hx Abdominal Surgery - partial spleenectomy, Other - Partial splenectomy. - Immunizations Immunizations up to date: Yes Hx Diphtheria, Pertussis, Tetanus Vaccination: Yes <PRAVEENA SULLIVAN - Last Filed: 08/03/19 08:02> Review of Systems - Review of Systems Constitutional: See HPI EENT: No symptoms reported Cardiovascular: See HPI Respiratory: See HPI Gastrointestinal: No symptoms reported Genitourinary: No symptoms reported Male Genitourinary: No symptoms reported Musculoskeletal: See HPI Skin: No symptoms reported Hematologic/Lymphatic: No symptoms reported Neurological/Psychological: No symptoms reported <PRAVEENA SULLIVAN - Last Filed: 08/03/19 08:02> Physical Exam <PRAVEENA SULLIVAN - Last Filed: 08/03/19 08:02> - Vital signs Vitals: Temp Pulse Resp BP Pulse Ox 97.6 F 78 16 116/54 L 100 08/03/19 04:23 08/03/19 04:23 08/03/19 04:23 08/03/19 04:23 08/03/19 04:23 - Notes Notes: GENERAL: Patient grimacing, slightly shaky, appears uncomfortable HEAD: Normocephalic, atraumatic. EYES: Pupils equal, round, and reactive to light. Extraocular movements intact. ENT: Oral mucosa moist, tongue midline. Oropharynx unremarkable. Airway patent. NECK: Full range of motion. Supple. Trachea midline. No lymphadenopathy. LUNGS: Clear to auscultation bilaterally, no wheezes, rales, or rhonchi. No respiratory distress. Non-tender chest wall. HEART: Regular rate and rhythm. No murmur ABDOMEN: Soft, non-tender. Non-distended. Bowel sounds present in all 4 quadra nts. GENITOURINARY: Deferred EXTREMITIES: Moves all 4 extremities spontaneously. No edema, normal radial and dorsalis pedis pulses bilaterally. No cyanosis. BACK: no cervical, thoracic, lumbar midline tenderness. No saddle anesthesia, normal distal neurovascular exam. Moves all extremities in full range of motion. NEUROLOGICAL: Alert and oriented x3. Normal speech. Cranial nerves II through XII grossly intact. Strength 5/5 in all extremities. PSYCH: Normal affect, normal mood. SKIN: Warm, dry, normal turgor. No rashes or lesions noted. (PRAVEENA SULLIVAN) Course - Laboratory Result Diagrams: 08/03/19 04:51 08/03/19 04:51 <PRAVEENA SULLIVAN - Last Filed: 08/03/19 08:02> - Laboratory Result Diagrams: 08/03/19 04:51 08/03/19 04:51 <STANANGELICA - Last Filed: 08/03/19 09:47> - Re-evaluation Re-evalutation: On initial exam patient does appear to be uncomfortable, he is slightly shaky, holding his arms to his body, appears to be in pain. He is not tachycardic, hypoxic, or febrile. His physical exam is unremarkable otherwise with clear lungs, no tachypnea, soft abdomen, unremarkable otherwise. Initiating treatment and work-up. CBC shows leukocytosis with elevation of neutrophils but no bandemia. Reticulocyte count is elevated. Hemoglobin is 8, not significantly changed from prior. Indirect bilirubin is 2.6, suggesting some hemolysis. Chest x-ray unremarkable except for cardiomegaly, EKG unchanged from prior. On reevaluation patient states he feels significantly improved but not back to baseline and he is still having a lot of back pain. He requests IV fluids and additional pain medication. He will be reevaluated. (PRAVEENA SULLIVAN) 08/03/19 08:51 Report was received on the patient, I evaluated the patient. He still reports h e is having some back pain. He reports being groggy from the pain medications. He is unsure of whether he would like to be admitted versus discharge at this point I will give the patient another 30 to 45 minutes and come back and reassess him he is aware at that time that if he does not feel better I would likely offer admission to the patient. He does have oxycodone and Percocet at home 08/03/19 09:30 Patient went to the bathroom got back to the room having more pain in the low back area does not believe he can go home. Will order more fluids and pain medications. Patient's primary physician Dr. Everett did call about the patient although the nurse took the call I will speak with him and plan to admit the patient 08/03/19 09:[address] Everett, oncology. Have hospital service admit and consult them and they will manage patient's pain issues. 08/03/19 09:[address] Chaney, Hospitalist, case and labs discussed, aware of Dr. Everett wishing consult for pain management. will admit (ANGELICA PIERCE) - Vital Signs Vital signs: Temp Pulse Resp BP Pulse Ox 97.6 F 78 17 114/66 100 08/03/19 04:23 08/03/19 04:23 08/03/19 08:41 08/03/19 08:41 08/03/19 08:41 - Laboratory Laboratory results interpreted by me: 08/03/19 08/03/19 08/03/19 04:51 04:51 04:51 WBC 17.1 H RBC 2.23 L Hgb 8.1 L Hct 23.1 L MCV 104 H MCH 36.5 H RDW 25.8 H Reticulocyte # 0.300 H Absolute Neuts (auto) 12.4 H Absolute Monos (auto) 1.7 H Retic Count (auto) 13.28 H Sodium 136.0 L Glucose 117 H Total Bilirubin 2.7 H Discharge <PRAVEENA SULLIVAN - Last Filed: 08/03/19 08:02> - Discharge Admitting Provider: Dr. Marcial Chaney, Hospitalist Unit Admitted: Medical Floor <ANGELICA PIERCE - Last Filed: 08/03/19 09:47> - Discharge Clinical Impression: Sickle cell anemia with pain Condition: Stable Disposition: ADMITTED OBSERVATION Additional Instructions: Follow-up with Dr. Everett closely for additional management. Drink plenty of fluids, rest, take medications. Return if you worsen including difficulty breathing, severe worsening pain, fever, vomiting, or any other concerning symptoms. Referrals: KENY EVERETT MD [Primary Care Provider] - Follow up tomorrow
[2019-08-03 05:14] LABS: ABSOLUTE BASOPHILS # (AUTO) 0.1 10^3/uL (0.0-0.2); ABSOLUTE EOSINOPHILS # (AUTO) 0.4 10^3/uL (0.0-0.6); ABSOLUTE LYMPHOCYTES (AUTO) 2.6 10^3/uL (0.5-4.7); ABSOLUTE MONOCYTES (AUTO) 1.7 10^3/uL (0.1-1.4); ABSOLUTE NEUT (AUTO) 12.4 10^3/uL (1.7-8.2); BASOPHILS % (AUTO) 0.4 % (0-2); EOSINOPHILS % (AUTO) 2.3 % (0-6); HEMATOCRIT 23.1 % (37.9-51.0); HEMOGLOBIN 8.1 g/dL (13.5-17.0); LYMPHOCYTES % (AUTO) 15.2 % (13-45); MEAN CORPUSCULAR HEMOGLOBIN 36.5 pg (27.0-33.4); MEAN CORPUSCULAR HGB CONC 35.2 g/dL (32.0-36.0); MEAN CORPUSCULAR VOLUME 104 fl (80-97); MONOCYTES % (AUTO) 9.9 % (3-13); PLATELET COUNT 406 10^3/uL (150-450); RED BLOOD COUNT 2.23 10^6/uL (4.35-5.55); RED CELL DISTRIBUTION WIDTH 25.8 % (11.5-14.0); SEGMENTED NEUTROPHILS % (AUTO) 72.2 % (42-78); TOTAL CELLS COUNTED % (AUTO) 100 %; WHITE BLOOD COUNT 17.1 10^3/uL (4.0-10.5)
[2019-08-03 05:25] LABS: ALBUMIN 4.4 g/dL (3.5-5.0); ALKALINE PHOSPHATASE 110 U/L (38-126); ANION GAP 7 (5-19); ASPARTATE AMINO TRANSFERASE 35 U/L (17-59); BILIRUBIN,DIRECT 0.1 mg/dL (0.0-0.4); BILIRUBIN,TOTAL 2.7 mg/dL (0.2-1.3); BLOOD UREA NITROGEN 15 mg/dL (7-20); CALCIUM 9.3 mg/dL (8.4-10.2); CARBON DIOXIDE 24 mmol/L (22-30); CHLORIDE 105 mmol/L (98-107); GLUCOSE 117 mg/dL (75-110); TOTAL PROTEIN 7.9 g/dL (6.3-8.2)
--- NOTE | 2019-08-03 05:41 | RADIOLOGY REPORT (SQ) ---
EXAM DESCRIPTION: XR CHEST 1 VIEW COMPLETED DATE/TME: 08/03/2019 04:43 CLINICAL HISTORY: 24 years, Male, chest pain, sickle cell COMPARISON: 12/08/2018 chest NUMBER OF VIEWS: 1 TECHNIQUE: Portable chest LIMITATIONS: None. FINDINGS: The heart size is enlarged but stable. Lungs are clear. No pneumothorax IMPRESSION: Stable cardiomegaly. Lungs are clear copyright 2011 [employer]- All Rights Reserved
[2019-08-03 05:51] LABS: ANISOCYTOSIS 3+
[2019-08-03 05:52] LABS: SICKLE RED CELLS 2+; TARGET CELLS SLIGHT
[2019-08-03 05:53] LABS: PLATELET COMMENT ADEQUATE; POLYCHROMASIA 2+
[2019-08-03 05:57] LABS: POIKILOCYTOSIS 2+
[2019-08-03 06:15] LABS: RETICULOCYTE COUNT (AUTO) 13.28 % (0.66-2.85)
[2019-08-03] MEDS ORDERED: NORMAL SALINE 1000 ML 1,000 ML IV ONE ×2 (06:38→09:32)
--- NOTE | 2019-08-03 08:18 | EKG REPORT ---
SEVERITY:- ABNORMAL ECG - SINUS RHYTHM CONSIDER LEFT VENTRICULAR HYPERTROPHY ST ELEV, PROBABLE NORMAL EARLY REPOL PATTERN : Confirmed by: Percy Murphy MD 03-Aug-2019 08:16:56
[2019-08-03] MEDS ORDERED: ACETAMINOPHEN 325 MG TABLET PO PRN (12:07)
[2019-08-03] MEDS ORDERED: ALBUTEROL SULFATE 0.083% NEB 2.5 MG/3 ML AMPUL NEB PRN (12:07)
[2019-08-03] MEDS ORDERED: 1/2 NORMAL SALINE 1,000 ML IV PRN (12:07)
[2019-08-03] MEDS ORDERED: ONDANSETRON 4 MG TAB.RAPDIS PO PRN (12:07)
[2019-08-03] MEDS ORDERED: ONDANSETRON HCL INJ/PF 4 MG/2 ML SDV IV PRN (12:07)
--- NOTE | 2019-08-03 13:27 | PDOC CONSULTATION ---
Consultation Consult Date: 08/03/19 Attending physician:: CARLOS PIERRE Provider Consulted: KENY QUEEN Consult reason:: Sickle cell crisis History of Present Illness Admission Date/PCP: 08/03/19 09:51 KENY QUEEN MD Patient complains of: Severe crisis related pain History of Present Illness: VIBHA ROWLAND is a 24 year old male well known to oncology clinic with severe pain crisis, given IVF + IV dilaudid in ED with continued pain so admitted. We did not examine pt given COVID-19 restrictions, this was a telehealth visit. We gave orders to nursing for pain control. Otherwise labs indicated hb of 8.1, his baseline is usually 9-10. Past Medical History Cardiac Medical History: Denies: Coronary Artery Disease, Hyperlipidema, Hypertension Pulmonary Medical History: Denies: Asthma, Chronic Obstructive Pulmonary Disease (COPD) Neurological Medical History: Denies: Seizures Endocrine Medical History: Denies: Diabetes Mellitus Type 1, Hyperthyroidism, Hypothyroidism GI Medical History: Denies: Cirrhosis, Crohn's Disease, Gastroesophageal Reflux Disease, Hepatitis, Ulcerative Colitis Musculoskeltal Medical History: Denies: Arthritis, Gout Skin Medical History: Denies: Eczema, Psoriasis Hematology: Reports: Anemia - Sickle cell, Sickle Cell Disease Past Surgical History Past Surgical History: 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 Social History Lives with: Family Smoking Status: Never Smoker Frequency of Alcohol Use: Rare Hx Recreational Drug Use: No Drugs: None Hx Prescription Drug Abuse: No - Advance Directive Resuscitation Status: Full Code Family History Family History: Reviewed & Not Pertinent Parental Family History Reviewed: Yes Children Family History Reviewed: Yes Sibling(s) Family History Reviewed.: Yes Medication/Allergy Home Medications: Folic Acid [Folvite 1 mg Tablet] 1 mg PO DAILY 12/12/18 Hydroxyurea [Hydrea 500 mg Capsule] 1,000 mg PO DAILY 12/12/18 Allergies/Adverse Reactions: diphenhydramine [From Benadryl] Adverse Reaction (Verified 08/03/19 04:33) VOMITING Review of Systems Constitutional: PRESENT: fatigue Musculoskeletal: PRESENT: back pain Physical Exam Vital Signs: Temp Pulse Resp BP Pulse Ox 97.5 F 85 24 H 116/56 L 100 08/03/19 11:57 08/03/19 11:57 08/03/19 11:57 08/03/19 11:57 08/03/19 11:57 Intake & Output 08/02/19 08/03/19 08/04/19 06:59 06:59 06:59 Intake Total 1999 Balance 1999 Weight 60.1 kg 61.5 kg Results Laboratory Results: 08/03/19 04:51 08/03/19 04:51 08/03/19 08/03/19 08/03/19 04:51 04:51 04:51 WBC 17.1 H RBC 2.23 L Hgb 8.1 L Hct 23.1 L MCV 104 H MCH 36.5 H MCHC 35.2 RDW 25.8 H Plt Count 406 Seg Neutrophils % 72.2 Retic Count (auto) 13.28 H Sodium 136.0 L Potassium 4.0 Chloride 105 Carbon Dioxide 24 Anion Gap 7 BUN 15 Creatinine 0.61 Est GFR ( Amer) > 60 Glucose 117 H Calcium 9.3 Total Bilirubin 2.7 H AST 35 Alkaline Phosphatase 110 Total Protein 7.9 Albumin 4.4 08/03/19 04:51 Troponin I 0.018 Impressions: Chest X-Ray 08/03/19 04:43 IMPRESSION: Stable cardiomegaly. Lungs are clear copyright 2011 [employer]- All Rights Reserved Assessment & Plan - Diagnosis (1) Sickle cell anemia with pain Is this a current diagnosis for this admission?: Yes Plan: Gave orders for pain meds, IVF, antiemetics. Will follow via [facility] will admitted. Instructed nursing to call us w/ pain management needs. If hb <7, will need transfusion. - Time Time Spent: 30 to 50 Minutes
[2019-08-03] MEDS ORDERED: DIPHENHYDRAMINE HCL 50 MG/ML VIAL IV PRN (13:37)
[2019-08-03] MEDS ORDERED: POLYETHYLENE GLYCOL 3350 POWDER 17 GM/1 PACKET PO PRN (13:39)
[2019-08-03] MEDS ORDERED: SENNOSIDES/DOCUSATE 8.6-50 MG 1 EACH TABLET PO PRN (13:39)
[2019-08-03] MEDS: NORMAL SALINE 1000 ML 1,000 ML IV PRN (14:53)
[2019-08-03] MEDS ORDERED: DOCUSATE SODIUM 100 MG CAPSULE PO ONE (15:00)
[2019-08-03] MEDS: HYDROMORPHONE HCL INJ/PF 2 MG/ML AMPULE IV PRN ×2 (15:00→21:06)
[2019-08-03] MEDS ORDERED: ENOXAPARIN SODIUM INJ 40 MG/0.4 ML DISP.SYRIN SUBCUT ONE (15:00)
[2019-08-03] MEDS ORDERED: HYDROXYUREA 500 MG CAPSULE PO ONE (15:30)
--- NOTE | 2019-08-03 16:45 | PDOC H&P ---
History of Present Illness Admission Date/PCP: 08/03/19 12:07 KENY QUEEN MD History of Present Illness: VIBHA ROWLAND is a 24 year old male with past medical history significant for sickle cell disease, history of acute chest syndrome in January 2019, chronic pain, chronic sickle cell anemia who presents after 1 day history of progressive severe back pain with some associated milder chest pain. Patient denies shortness of breath and states that his current pain crisis does not feel anything like his acute chest syndrome he experienced in January. Hemoglobin above 8 on admission here. Patient given multiple rounds of IV narcotics in the ED without resolution of symptoms. Started on IV fluids, Hydrea home dose continued, folate continued. Oncologist consulted on admission by ED for pain management. Past Medical History Cardiac Medical History: Denies: Coronary Artery Disease, Hyperlipidema, Hypertension Pulmonary Medical History: Denies: Asthma, Chronic Obstructive Pulmonary Disease (COPD) Neurological Medical History: Denies: Seizures Endocrine Medical History: Denies: Diabetes Mellitus Type 1, Hyperthyroidism, Hypothyroidism GI Medical History: Denies: Cirrhosis, Crohn's Disease, Gastroesophageal Reflux Disease, Hepatitis, Ulcerative Colitis Musculoskeltal Medical History: Denies: Arthritis, Gout Skin Medical History: Denies: Eczema, Psoriasis Hematology: Reports: Anemia - Sickle cell, Sickle Cell Disease Hematology History Note: Sickle cell disease Past Surgical History Past Surgical History: Reports: None, Other - Partial splenectomy. Social History Information Source: Patient, Emergency Med Personnel, [facility] Records Lives with: Family Smoking Status: Never Smoker Frequency of Alcohol Use: Rare Hx Recreational Drug Use: No Drugs: None Hx Prescription Drug Abuse: No - Advance Directive Resuscitation Status: Full Code Surrogate healthcare decision maker:: Father Family History Family History: Reviewed & Not Pertinent Parental Family History Reviewed: Yes Children Family History Reviewed: NA Sibling(s) Family History Reviewed.: NA Medication/Allergy Home Medications: Folic Acid [Folvite 1 mg Tablet] 1 mg PO DAILY 12/12/18 Hydroxyurea [Hydrea 500 mg Capsule] 1,000 mg PO DAILY 12/12/18 Allergies/Adverse Reactions: diphenhydramine [From Benadryl] Adverse Reaction (Verified 08/03/19 04:33) VOMITING Review of Systems All systems: reviewed and no additional remarkable complaints except as stated - Review of systems as per HPI otherwise negative. Physical Exam Vital Signs: Temp Pulse Resp BP Pulse Ox 97.5 F 88 28 H 116/56 L 99 08/03/19 11:57 08/03/19 13:32 08/03/19 13:32 08/03/19 11:57 08/03/19 13:32 Intake & Output 08/02/19 08/03/19 08/04/19 06:59 06:59 06:59 Intake Total 1999 Balance 1999 Weight 60.1 kg 61.5 kg General appearance: PRESENT: no acute distress, well-developed, well-nourished Head exam: PRESENT: atraumatic, normocephalic Eye exam: PRESENT: conjunctiva pink Mouth exam: PRESENT: moist Respiratory exam: PRESENT: clear to auscultation oxana. ABSENT: rales, rhonchi, wheezes GI/Abdominal exam: PRESENT: normal bowel sounds, soft. ABSENT: distended, guarding, mass, organolmegaly, rebound, tenderness Rectal exam: PRESENT: deferred Musculoskeletal exam: PRESENT: tenderness - Diffuse severe tenderness along all of back and tenderness along ribs/sternum to much lesser degree Neurological exam: PRESENT: alert, awake, oriented to person, oriented to place, oriented to time, oriented to situation Psychiatric exam: PRESENT: appropriate affect, normal mood Skin exam: PRESENT: dry, intact, warm Results Laboratory Results: 08/03/19 04:51 08/03/19 04:51 08/03/19 08/03/19 08/03/19 04:51 04:51 04:51 WBC 17.1 H RBC 2.23 L Hgb 8.1 L Hct 23.1 L MCV 104 H MCH 36.5 H MCHC 35.2 RDW 25.8 H Plt Count 406 Seg Neutrophils % 72.2 Retic Count (auto) 13.28 H Sodium 136.0 L Potassium 4.0 Chloride 105 Carbon Dioxide 24 Anion Gap 7 BUN 15 Creatinine 0.61 Est GFR ( Amer) > 60 Glucose 117 H Calcium 9.3 Total Bilirubin 2.7 H AST 35 Alkaline Phosphatase 110 Total Protein 7.9 Albumin 4.4 08/03/19 04:51 Troponin I 0.018 Impressions: Chest X-Ray 08/03/19 04:43 IMPRESSION: Stable cardiomegaly. 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 anemia type: other hemoglobinopathy Qualified Code(s): D58.2 - Other hemoglobinopathies Is this a current diagnosis for this admission?: Yes (3) Dehydration Is this a current diagnosis for this admission?: Yes Plan: IV fluids as above (4) Post-splenectomy Is this a current diagnosis for this admission?: Yes Plan: Immune compromised High risk for opportunistic infections - Time Time Spent with patient: 35 or more minutes Medications reviewed and adjusted accordingly: Yes Anticipated discharge: Home Within: within 72 hours - Inpatient Certification Based on my medical assessment, after consideration of the patient's comorbidities, presenting symptoms, or acuity I expect that the services needed warrant INPATIENT care.: Yes I certify that my determination is in accordance with my understanding of Medicare's requirements for reasonable and necessary INPATIENT services [42 CFR 412.3e].: Yes Medical Necessity: Significant Comorbidiites Make Outpatient Treatment Too Risky, Need Close Monitoring Due to Risk of Patient Decompensation, Need For IV Fluids, Need for Pain Control
--- NOTE | 2019-08-03 16:46 | ADVANCED CARE ---
- Diagnosis (1) Sickle cell anemia with pain Diagnosis Current: Yes (2) Anemia Diagnosis Current: Yes (3) Dehydration Diagnosis Current: Yes (4) Post-splenectomy Diagnosis Current: Yes Attendance: Patient Resuscitation Status: Full Code Discussion: All aspects of code discussed including chest compressions/cardioversion/intub ation patient states that he would prefer to be full code. He states his medical power of collections attorney is his father Jayce Yang Time Spent: 17 minutes
[2019-08-03] MEDS: PROMETHAZINE HCL INJ 25 MG/1 ML VIAL IV PRN (18:03)
[2019-08-04] MEDS: HYDROMORPHONE HCL INJ/PF 2 MG/ML AMPULE IV PRN ×6 (00:13→21:24)
[2019-08-04] MEDS: NORMAL SALINE 1000 ML 1,000 ML IV PRN ×3 (00:14→18:42)
[2019-08-04 06:04] LABS: HEMATOCRIT 21.7 % (37.9-51.0); MEAN CORPUSCULAR HEMOGLOBIN 35.1 pg (27.0-33.4); MEAN CORPUSCULAR HGB CONC 34.7 g/dL (32.0-36.0); MEAN CORPUSCULAR VOLUME 101 fl (80-97); PLATELET COUNT 332 10^3/uL (150-450); RED BLOOD COUNT 2.14 10^6/uL (4.35-5.55); RED CELL DISTRIBUTION WIDTH 23.8 % (11.5-14.0)
[2019-08-04 06:18] LABS: ANION GAP 8 (5-19); BLOOD UREA NITROGEN 7 mg/dL (7-20); CARBON DIOXIDE 24 mmol/L (22-30); CHLORIDE 104 mmol/L (98-107); GLUCOSE 113 mg/dL (75-110); PHOSPHORUS 3.3 mg/dL (2.5-4.5); POTASSIUM 3.7 mmol/L (3.6-5.0)
[2019-08-04 06:23] LABS: ABSOLUTE LYMPHOCYTES# (MANUAL) 1.6 10^3/uL (0.5-4.7); ABSOLUTE MONOCYTES # (MANUAL) 1.7 10^3/uL (0.1-1.4); BASOPHILS % (MANUAL) 0 % (0-2); EOSINOPHILS % (MANUAL) 0 % (0-6); LYMPHOCYTES % (MANUAL) 10 % (13-45); MONOCYTES % (MANUAL) 11 % (3-13); NUCLEATED RED BLOOD CELLS 12 /100 WBC (0); SEGMENTED NEUTROPHILS % (MAN) 79 % (42-78); TOTAL CELLS COUNTED 100
[2019-08-04 06:25] LABS: SICKLE RED CELLS SLIGHT; TARGET CELLS SLIGHT; TOXIC VACUOLATION PRESENT
[2019-08-04 06:26] LABS: ANISOCYTOSIS 3+; OVALOCYTES SLIGHT; PLATELET COMMENT ADEQUATE; POIKILOCYTOSIS SLIGHT; POLYCHROMASIA SLIGHT; WHITE BLOOD COUNT 15.4 10^3/uL (4.0-10.5)
[2019-08-04 06:27] LABS: HEMOGLOBIN 7.5 g/dL (13.5-17.0)
[2019-08-04] MEDS: FOLIC ACID 1 MG TABLET PO SCH (09:18)
[2019-08-04] MEDS: HYDROXYUREA 500 MG CAPSULE PO SCH (09:18)
[2019-08-04] MEDS: DOCUSATE SODIUM 100 MG CAPSULE PO SCH (09:18)
[2019-08-04] MEDS: PROMETHAZINE HCL INJ 25 MG/1 ML VIAL IV PRN (09:23)
[2019-08-04] MEDS: ENOXAPARIN SODIUM INJ 40 MG/0.4 ML DISP.SYRIN SUBCUT SCH (09:26)
[2019-08-04] MEDS ORDERED: HYDROXYUREA 500 MG CAPSULE PO SCH (10:00)
[2019-08-04] MEDS ORDERED: ENOXAPARIN SODIUM INJ 30 MG/0.3 ML DISP.SYRIN SUBCUT SCH (10:00)
[2019-08-04] MEDS: OXYCODONE HCL IR 5 MG TABLET PO PRN ×2 (12:12→18:40)
--- NOTE | 2019-08-04 15:58 | PDOC PROGRESS REPORT ---
Subjective Progress Note for:: 08/04/19 Subjective:: Patient appears comfortable today with his pain very well controlled. Mildly somnolent as he had recently gotten a dose of his Dilaudid prescribed by the oncologist. He states he is doing well. Hemoglobin dropped since yesterday but is not at a level to be transfused yet. IV fluids and as needed pain medication continues. He denies any chest pain at this time. Still has pain in his back and legs which is more controlled today. Reason For Visit: SICKLE CELL PAIN CRISIS Physical Exam Vital Signs: Temp Pulse Resp BP Pulse Ox 98.0 F 82 16 134/63 H 100 08/04/19 11:52 08/04/19 13:51 08/04/19 13:51 08/04/19 11:52 08/04/19 13:51 Intake & Output 08/03/19 08/04/19 08/05/19 06:59 06:59 06:59 Intake Total 3275 907 Output Total 3600 Balance -325 907 Weight 60.1 kg 61.5 kg General appearance: PRESENT: no acute distress, well-developed, well-nourished Head exam: PRESENT: atraumatic, normocephalic Eye exam: PRESENT: conjunctiva pink Mouth exam: PRESENT: moist Respiratory exam: PRESENT: clear to auscultation oxana. ABSENT: rales, rhonchi, wheezes Cardiovascular exam: PRESENT: RRR. ABSENT: diastolic murmur, rubs, systolic murmur GI/Abdominal exam: PRESENT: normal bowel sounds, soft. ABSENT: distended, guarding, mass, organolmegaly, rebound, tenderness Rectal exam: PRESENT: deferred Musculoskeletal exam: PRESENT: tenderness - Pain in legs and back, less today Neurological exam: PRESENT: alert, awake, oriented to person, oriented to place, oriented to time, oriented to situation Psychiatric exam: PRESENT: appropriate affect, normal mood Skin exam: PRESENT: dry, intact, warm Results Laboratory Results: 08/04/19 05:18 08/04/19 05:18 08/04/19 08/04/19 05:18 05:18 WBC 15.4 H RBC 2.14 L Hgb 7.5 L Hct 21.7 L MCV 101 H MCH 35.1 H MCHC 34.7 RDW 23.8 H Plt Count 332 Seg Neutrophils % Not Reportable Sodium 135.9 L Potassium 3.7 Chloride 104 Carbon Dioxide 24 Anion Gap 8 BUN 7 Creatinine 0.50 L Est GFR ( Amer) > 60 Glucose 113 H Calcium 9.0 Phosphorus 3.3 Magnesium 2.0 08/03/19 04:51 Troponin I 0.018 Impressions: Chest X-Ray 08/03/19 04:43 IMPRESSION: Stable cardiomegaly. Lungs are clear copyright 2011 [employer]- All Rights Reserved Assessment and Plan - Diagnosis (1) Sickle cell anemia with pain Is this a current diagnosis for this admission?: Yes Plan: 1 day history severe back pain consistent with previous pain crises Denies running out of any of his home medications Hematology consulted for pain management Hemoglobin greater than 8 on admission, transfuse for hemoglobin less than 7 Folate and Hydrea continue IV fluids 08/04/2019 Hemoglobin lower down to 7.5, does not yet require transfusion Pain management continues and seems better controlled today. 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 Hemolytic anemia type: other hemoglobinopathy Qualified Code(s): D58.2 - Other hemoglobinopathies Is this a current diagnosis for this admission?: Yes (3) Dehydration Is this a current diagnosis for this admission?: Yes (4) Post-splenectomy Is this a current diagnosis for this admission?: Yes - Time Time Spent with patient: 25-34 minutes Anticipated discharge: Home - Inpatient Certification Based on my medical assessment, after consideration of the patient's comorbidities, presenting symptoms, or acuity I expect that the services needed warrant INPATIENT care.: Yes I certify that my determination is in accordance with my understanding of Medicare's requirements for reasonable and necessary INPATIENT services [42 CFR 412.3e].: Yes Medical Necessity: Significant Comorbidiites Make Outpatient Treatment Too Risky, Need Close Monitoring Due to Risk of Patient Decompensation, Need For IV Fluids, Need for Pain Control
[2019-08-05] MEDS: HYDROMORPHONE HCL INJ/PF 2 MG/ML AMPULE IV PRN ×6 (01:03→23:08)
[2019-08-05] MEDS: NORMAL SALINE 1000 ML 1,000 ML IV PRN (04:07)
[2019-08-05 06:20] LABS: HEMATOCRIT 17.5 % (37.9-51.0); MEAN CORPUSCULAR HEMOGLOBIN 34.8 pg (27.0-33.4); MEAN CORPUSCULAR HGB CONC 35.6 g/dL (32.0-36.0); PLATELET COUNT 281 10^3/uL (150-450); RED BLOOD COUNT 1.79 10^6/uL (4.35-5.55); RED CELL DISTRIBUTION WIDTH 23.9 % (11.5-14.0); WHITE BLOOD COUNT 13.2 10^3/uL (4.0-10.5)
[2019-08-05 06:27] LABS: HEMOGLOBIN 6.2 g/dL (13.5-17.0)
[2019-08-05 06:28] LABS: MEAN CORPUSCULAR VOLUME 98 fl (80-97)
[2019-08-05 06:39] LABS: ABSOLUTE LYMPHOCYTES# (MANUAL) 1.8 10^3/uL (0.5-4.7); ABSOLUTE MONOCYTES # (MANUAL) 0.5 10^3/uL (0.1-1.4); BASOPHILS % (MANUAL) 0 % (0-2); EOSINOPHILS % (MANUAL) 0 % (0-6); LYMPHOCYTES % (MANUAL) 14 % (13-45); MONOCYTES % (MANUAL) 4 % (3-13); NUCLEATED RED BLOOD CELLS 1 /100 WBC (0); SEGMENTED NEUTROPHILS % (MAN) 82 % (42-78); TOTAL CELLS COUNTED 100
[2019-08-05 06:44] LABS: ANISOCYTOSIS 3+; OVALOCYTES 1+; POIKILOCYTOSIS 3+; TOXIC GRANULATION SLIGHT
[2019-08-05 06:45] LABS: SICKLE RED CELLS 3+
[2019-08-05 06:46] LABS: HOWELL-JOLLY BODIES PRESENT; TARGET CELLS SLIGHT; TEAR DROP CELLS 1+
[2019-08-05 06:47] LABS: PLATELET COMMENT ADEQUATE
[2019-08-05 06:48] LABS: TOXIC VACUOLATION PRESENT
[2019-08-05] MEDS ORDERED: NORMAL SALINE 250 ML IV PRN (09:34)
[2019-08-05] MEDS: FOLIC ACID 1 MG TABLET PO SCH (10:21)
[2019-08-05] MEDS: DOCUSATE SODIUM 100 MG CAPSULE PO SCH (10:21)
[2019-08-05] MEDS: ENOXAPARIN SODIUM INJ 40 MG/0.4 ML DISP.SYRIN SUBCUT SCH (10:21)
[2019-08-05] MEDS: HYDROXYUREA 500 MG CAPSULE PO SCH (10:22)
[2019-08-05] MEDS: OXYCODONE HCL IR 5 MG TABLET PO PRN (11:21)
--- NOTE | 2019-08-05 12:19 | PDOC PROGRESS REPORT ---
Subjective Progress Note for:: 08/05/19 Reason For Visit: SICKLE CELL PAIN CRISIS 08/05/2019 Patient complaining of bilateral arm pain from sickle cell crisis. Originally was back pain which has resolved Physical Exam Vital Signs: Temp Pulse Resp BP Pulse Ox 98.8 F 109 H 20 137/57 H 96 08/05/19 12:01 08/05/19 12:01 08/05/19 12:01 08/05/19 12:01 08/05/19 12:01 Intake & Output 08/04/19 08/05/19 08/06/19 06:59 06:59 06:59 Intake Total 3275 5119 0 Output Total 3600 1075 Balance -325 4044 0 Weight 61.5 kg 61.5 kg General appearance: PRESENT: mild distress Respiratory exam: PRESENT: clear to auscultation oxana. ABSENT: rales, rhonchi, wheezes Cardiovascular exam: PRESENT: RRR. ABSENT: diastolic murmur, rubs, systolic murmur Neurological exam: PRESENT: alert, awake, oriented to person, oriented to place, oriented to time, oriented to situation, CN II-XII grossly intact. ABSENT: motor sensory deficit Psychiatric exam: PRESENT: appropriate affect, normal mood. ABSENT: homicidal ideation, suicidal ideation Results Laboratory Results: 08/05/19 05:36 08/04/19 05:18 08/05/19 08/05/19 08/05/19 04:07 05:36 06:54 WBC Cancelled 13.2 H RBC Cancelled 1.79 L Hgb Cancelled 6.2 L Hct Cancelled 17.5 L MCV Cancelled 98 H MCH Cancelled 34.8 H MCHC Cancelled 35.6 RDW Cancelled 23.9 H Plt Count Cancelled 281 Seg Neutrophils % Cancelled Not Reportable Blood Type O POSITIVE Antibody Screen NEGATIVE 08/03/19 04:51 Troponin I 0.018 Impressions: Chest X-Ray 08/03/19 04:43 IMPRESSION: Stable cardiomegaly. Lungs are clear copyright 2011 [employer] All Rights Reserved Assessment and Plan - Diagnosis (1) Sickle cell anemia with pain Is this a current diagnosis for this admission?: Yes (2) Dehydration Is this a current diagnosis for this admission?: Yes (3) Hyperhemolytic sickle cell crisis Is this a current diagnosis for this admission?: Yes (4) Post-splenectomy Is this a current diagnosis for this admission?: Yes (5) Sickle cell anemia Qualifiers: Sickle-cell associated disorders: with unspecified crisis Qualified Code(s): D57.00 - Hb-SS disease with crisis, unspecified; D57.0 - Hb-SS disease with crisis Is this a current diagnosis for this admission?: Yes - Plan Summary Summary: 08/05/2019 Patient tells me he was originally admitted for his back pain but that is resolved and now he is left with bilateral arm pain. He says any kind of motion or movement increases his pain.. Patient states that even the blood pressure cuff will hurt his arm. Unfortunately patient's hemoglobin has now dropped to 6.2 from admission level of 8.1. Will transfuse 2 units of packed red cells Chemistry panel is basically normal. Patient was slightly tachycardic yesterday afternoon at 1700 hrs., still running at approximately 109 heart rate. Suspect this will get better after transfusion Blood pressure however is stable 137/57 Oxygen saturation 96% room air Current pain medication appears to be Dilaudid 3 mg IV every 2 hours as needed OxyIR 10 mg every 3 hours as needed Normal saline at 100 mL's per hour - Time Time Spent with patient: 25-34 minutes
[2019-08-06 06:01] LABS: HEMATOCRIT 24.3 % (37.9-51.0); MEAN CORPUSCULAR HGB CONC 36.1 g/dL (32.0-36.0); PLATELET COUNT 287 10^3/uL (150-450); RED BLOOD COUNT 2.66 10^6/uL (4.35-5.55); RED CELL DISTRIBUTION WIDTH 24.8 % (11.5-14.0); WHITE BLOOD COUNT 15.8 10^3/uL (4.0-10.5)
[2019-08-06 06:19] LABS: HEMOGLOBIN 8.8 g/dL (13.5-17.0); MEAN CORPUSCULAR VOLUME 91 fl (80-97)
[2019-08-06 06:21] LABS: ABSOLUTE LYMPHOCYTES# (MANUAL) 1.4 10^3/uL (0.5-4.7); ABSOLUTE MONOCYTES # (MANUAL) 2.1 10^3/uL (0.1-1.4); BASOPHILS % (MANUAL) 0 % (0-2); EOSINOPHILS % (MANUAL) 2 % (0-6); LYMPHOCYTES % (MANUAL) 9 % (13-45); MONOCYTES % (MANUAL) 13 % (3-13); NUCLEATED RED BLOOD CELLS 6 /100 WBC (0); SEGMENTED NEUTROPHILS % (MAN) 76 % (42-78); TOTAL CELLS COUNTED 100
[2019-08-06 06:22] LABS: ANISOCYTOSIS 3+; PLATELET COMMENT ADEQUATE; POLYCHROMASIA 1+
[2019-08-06] MEDS: HYDROMORPHONE HCL INJ/PF 2 MG/ML AMPULE IV PRN (08:15)
[2019-08-06] MEDS: ENOXAPARIN SODIUM INJ 40 MG/0.4 ML DISP.SYRIN SUBCUT SCH (09:30)
[2019-08-06] MEDS: HYDROXYUREA 500 MG CAPSULE PO SCH (09:34)
[2019-08-06] MEDS: FOLIC ACID 1 MG TABLET PO SCH (09:34)
[2019-08-06] MEDS: DOCUSATE SODIUM 100 MG CAPSULE PO SCH (09:34)
[2019-08-06 11:08] VITALS: BP 160/66
--- NOTE | 2019-08-06 15:18 | PDOC DISCHARGE SUMMARY ---
Impression - Admit/DC Date/PCP Admission Date/Primary Care Provider: 08/03/19 12:07 KENY QUEEN MD Discharge Date: 08/06/19 - Discharge Diagnosis (1) Sickle cell anemia with pain Is this a current diagnosis for this admission?: Yes (2) Dehydration Is this a current diagnosis for this admission?: Yes (3) Hyperhemolytic sickle cell crisis Is this a current diagnosis for this admission?: Yes (4) Post-splenectomy Is this a current diagnosis for this admission?: Yes (5) Sickle cell anemia Is this a current diagnosis for this admission?: Yes - Assessment Summary: 08/05/2019 Patient tells me he was originally admitted for his back pain but that is resolved and now he is left with bilateral arm pain. He says any kind of motion or movement increases his pain.. Patient states that even the blood pressure cuff will hurt his arm. Unfortunately patient's hemoglobin has now dropped to 6.2 from admission level of 8.1. Will transfuse 2 units of packed red cells Chemistry panel is basically normal. Patient was slightly tachycardic yesterday afternoon at 1700 hrs., still running at approximately 109 heart rate. Suspect this will get better after transfusion Blood pressure however is stable 137/57 Oxygen saturation 96% room air Current pain medication appears to be Dilaudid 3 mg IV every 2 hours as needed OxyIR 10 mg every 3 hours as needed Normal saline at 100 mL's per hour 08/06/2019 Patient states he is feeling better today is able to take both arms and move him up in the air without any pain. Today he was unable to do any range of motion with the shoulders or arms secondary to arm pain. he states he would be willing to go home today. 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 No prescriptions were written Vital signs today temperature 98.9 pulse 79 blood pressure 136/63 O2 sat 99% Hemoglobin is come up to 8.8 following 2 units Chemistry panel is normal - Additional Information Resuscitation Status: Full Code Discharge Diet: As Tolerated Discharge Activity: Activity As Tolerated Referrals: KENY QUEEN MD [Primary Care Provider] - 09/06/19 1:45 pm Home Medications: Folic Acid [Folvite 1 mg Tablet] 1 mg PO DAILY 12/12/18 Hydroxyurea [Hydrea 500 mg Capsule] 1,000 mg PO DAILY 12/12/18 Acetaminophen [Tylenol 325 mg Tablet] 650 mg PO Q4HP PRN tablet 08/06/19 Docusate Sodium [Colace 100 mg Capsule] 100 mg PO DAILY capsule 08/06/19 Polyethylene Glycol 3350 [Miralax Powder 17 gm/Packet] 17 gm PO DAILYP PRN powd.pack 08/06/19 Sennosides/Docusate 8.6-50 mg [Senna Plus Tablet] 1 each PO DAILYP PRN tablet 08/06/19 History of Present Illiness History of Present Illness: VIBHA ROWLAND is a 24 year old male Physical Exam Vital Signs: Temp Pulse Resp BP Pulse Ox 98.9 F 79 17 160/66 H 99 08/06/19 11:07 08/06/19 11:07 08/06/19 11:07 08/06/19 11:07 08/06/19 11:07 Intake & Output 08/05/19 08/06/19 08/07/19 06:59 06:59 06:59 Intake Total 5119 3240 240 Output Total 1075 2050 Balance 4044 1190 240 Weight 61.5 kg 63.6 kg Results Laboratory Results: WBC 15.8 10^3/uL (4.0-10.5) H 08/06/19 05:01 RBC 2.66 10^6/uL (4.35-5.55) L 08/06/19 05:01 Hgb 8.8 g/dL (13.5-17.0) L D 08/06/19 05:01 Hct 24.3 % (37.9-51.0) L 08/06/19 05:01 MCV 91 fl (80-97) D 08/06/19 05:01 MCH 33.0 pg (27.0-33.4) 08/06/19 05:01 MCHC 36.1 g/dL (32.0-36.0) H 08/06/19 05:01 RDW 24.8 % (11.5-14.0) H 08/06/19 05:01 Plt Count 287 10^3/uL (150-450) 08/06/19 05:01 Lymph % (Auto) Not Reportable 08/06/19 05:01 [place] % (Auto) Not Reportable 08/06/19 05:01 Eos % (Auto) Not Reportable 08/06/19 05:01 Baso % (Auto) Not Reportable 08/06/19 05:01 Reticulocyte # 0.300 10^6/uL (0.028-0.122) H 08/03/19 04:51 Absolute Neuts (auto) Not Reportable 08/06/19 05:01 Absolute Lymphs (auto) Not Reportable 08/06/19 05:01 Absolute Monos (auto) Not Reportable 08/06/19 05:01 Absolute Eos (auto) Not Reportable 08/06/19 05:01 Absolute Basos (auto) Not Reportable 08/06/19 05:01 Total Counted 100 08/06/19 05:01 Seg Neutrophils % Not Reportable 08/06/19 05:01 Seg Neuts % (Manual) 76 % (42-78) 08/06/19 05:01 Lymphocytes % (Manual) 9 % (13-45) L 08/06/19 05:01 Monocytes % (Manual) 13 % (3-13) 08/06/19 05:01 Eosinophils % (Manual) 2 % (0-6) 08/06/19 05:01 Basophils % (Manual) 0 % (0-2) 08/06/19 05:01 Abs Neuts (Manual) 12.0 10^3/uL (1.7-8.2) H 08/06/19 05:01 Abs Lymphs (Manual) 1.4 10^3/uL (0.5-4.7) 08/06/19 05:01 Abs Monocytes (Manual) 2.1 10^3/uL (0.1-1.4) H 08/06/19 05:01 Absolute Eos (Manual) 0.3 10^3/uL (0.0-0.6) 08/06/19 05:01 Abs Basophils (Manual) 0.0 10^3/uL (0.0-0.2) 08/06/19 05:01 Nucleated RBCs 6 /100 WBC (0) 08/06/19 05:01 Toxic Granulation SLIGHT 08/05/19 05:36 Toxic Vacuolation PRESENT 08/05/19 05:36 Platelet Estimate Cancelled 08/05/19 04:07 Platelet Comment ADEQUATE 08/06/19 05:01 Polychromasia 1+ 08/06/19 05:01 Poikilocytosis 3+ 08/05/19 05:36 Anisocytosis 3+ 08/06/19 05:01 Macrocytosis 1+ 08/04/19 05:18 Sickle Cells 3+ 08/05/19 05:36 Target Cells SLIGHT 08/05/19 05:36 Tear Drop Cells 1+ 08/05/19 05:36 Ovalocytes 1+ 08/05/19 05:36 [place] Bodies PRESENT 08/05/19 05:36 Retic Count (auto) 13.28 % (0.66-2.85) H 08/03/19 04:51 Sodium 135.9 mmol/L (137-145) L 08/04/19 05:18 Potassium 3.7 mmol/L (3.6-5.0) 08/04/19 05:18 Chloride 104 mmol/L (98-107) 08/04/19 05:18 Carbon Dioxide 24 mmol/L (22-30) 08/04/19 05:18 Anion Gap 8 (5-19) 08/04/19 05:18 BUN 7 mg/dL (7-20) 08/04/19 05:18 Creatinine 0.50 mg/dL (0.52-1.25) L 08/04/19 05:18 Est GFR ( Amer) > 60 (>60) 08/04/19 05:18 Est GFR (MDRD) Non-Af > 60 (>60) 08/04/19 05:18 Glucose 113 mg/dL (75-110) H 08/04/19 05:18 Calcium 9.0 mg/dL (8.4-10.2) 08/04/19 05:18 Phosphorus 3.3 mg/dL (2.5-4.5) 08/04/19 05:18 Magnesium 2.0 mg/dL (1.6-2.3) 08/04/19 05:18 Total Bilirubin 2.7 mg/dL (0.2-1.3) H 08/03/19 04:51 Direct Bilirubin 0.1 mg/dL (0.0-0.4) 08/03/19 04:51 Neonat Total Bilirubin Not Reportable 08/03/19 04:51 Neonat Direct Bilirubin Not Reportable 08/03/19 04:51 Neonat Indirect Bili Not Reportable 08/03/19 04:51 AST 35 U/L (17-59) 08/03/19 04:51 ALT 31 U/L (<50) 08/03/19 04:51 Alkaline Phosphatase 110 U/L (38-126) 08/03/19 04:51 Troponin I 0.018 ng/mL 08/03/19 04:51 Total Protein 7.9 g/dL (6.3-8.2) 08/03/19 04:51 Albumin 4.4 g/dL (3.5-5.0) 08/03/19 04:51 Slides for Path Review Cancelled 08/05/19 04:07 Blood Type O POSITIVE 08/05/19 06:54 Antibody Screen NEGATIVE 08/05/19 06:54 Crossmatch See Detail 08/05/19 06:54 08/03/19 04:51 Troponin I 0.018 Impressions: Chest X-Ray 08/03/19 04:43 IMPRESSION: Stable cardiomegaly. Lungs are clear copyright 2011 [employer]- All Rights Reserved Stroke Is this a Stroke Patient?: No Acute Heart Failure - Is this a Heart Failure Patient?: No
== END 2019-08-06 11:47 | disposition home or self-care (01) | DRG 812 ==
LOC: ER 04:20 → EH 09:51 → 4S 11:28 → OBSVTOIN 12:07
PROVIDERS: ADMIT Internal Medicine; ATTEND Physician Assistant
PROC: 30233N1 Transfusion of Nonautologous Red Blood Cells into Peripheral Vein, Percutaneous Approach (ICD-10-PCS; principal; 2019-08-05)
DX: D57.00 Hb-SS disease with crisis, unspecified (principal); E86.0 Dehydration; G89.29 Other chronic pain; Z90.81 Acquired absence of spleen; Z88.8 Allergy status to other drugs, medicaments and biological substances
CPT/HCPCS: 36415; 36430; 71045; 80048; 80053; 83735; 84100; 84484; 85025; 85045; 86850; 86900; 86901; 86920; 93005; 93010; 96361; 96374; 96375; 96376; 99285; J1170; J2405; J2550; J7030; P9016

== ENCOUNTER 2020-01-04 19:20 | Inpatient (IN) | payer MEDICAID, OTHER ==
[2020-01-04] MEDS ORDERED: OXYCODONE-ACETAMINOPHEN 5-325 MG TABLET PO ONE (20:01)
[2020-01-04] MEDS ORDERED: NORMAL SALINE 1000 ML 1,000 ML IV ONE ×2 (20:05)
--- NOTE | 2020-01-04 20:05 | ER Document Report ---
ED Medical Screen (RME) - General Chief Complaint: Sickle Cell Crisis Stated Complaint: BACK/RIGHT HIP PAIN Time Seen by Provider: 01/04/20 20:00 Primary Care Provider: KENY QUEEN MD [Primary Care Provider] - Follow up as needed Mode of Arrival: Wheelchair Information source: Patient Notes: 24-year-old male presented to ED for complaint of sickle cell crisis at this time. He states he is having a lot of pain in his back at his right hip. He states he usually has the pain in his back but he cannot be anywhere. He states he had his last crisis in November. He states he has seen Dr. Rowland in the past but is being transitioned to another practice. He states he does not smoke occasionally drinks and does not use any illicit drugs. He states he takes P ercocet at home for the pain but he was at work when this started getting bad. He states it started mildly before going to work but is progressed as the day progressed. He states he did not go home to get his pain medicine he just came back to the emergency room. I have greeted and performed a rapid initial assessment of this patient. A comprehensive ED assessment and evaluation of the patient, analysis of test results and completion of medical decision making process will be conducted by an additional ED providers. TRAVEL OUTSIDE OF THE [place] IN LAST 30 DAYS: No - Related Data Allergies/Adverse Reactions: diphenhydramine [From Benadryl] Adverse Reaction (Verified 08/03/19 04:33) VOMITING Past Medical History - Past Medical History Cardiac Medical History: Denies: Hx Coronary Artery Disease, Hx Hypercholesterolemia, Hx Hypertension Pulmonary Medical History: Denies: Hx Asthma, Hx COPD Neurological Medical History: Denies: Hx Seizures Endocrine Medical History: Denies: Hx Diabetes Mellitus Type 1, Hx Hyperthyroidism, Hx Hypothyroidism Renal/ Medical History: Denies: Hx Peritoneal Dialysis GI Medical History: Denies: Hx Cirrhosis, Hx Crohn's Disease, Hx Gastroesophageal Reflux Disease, Hx Hepatitis, Hx Ulcerative Colitis Musculoskeltal Medical History: Denies Hx Arthritis, Denies Hx Gout Skin Medical History: Denies Hx Eczema, Denies Hx Psoriasis Infectious Medical History: Denies: Hx Hepatitis Past Surgical History: Reports: Hx Abdominal Surgery - partial spleenectomy, Other - Partial splenectomy. - Immunizations Immunizations up to date: Yes Hx Diphtheria, Pertussis, Tetanus Vaccination: Yes Physical Exam - Vital signs Vitals: Temp Pulse Resp BP Pulse Ox 98.3 F 103 H 18 133/61 H 97 01/04/20 19:28 01/04/20 19:28 01/04/20 19:28 01/04/20 19:28 01/04/20 19:28 Course - Vital Signs Vital signs: Temp Pulse Resp BP Pulse Ox 98.3 F 103 H 18 133/61 H 97 01/04/20 19:28 01/04/20 19:28 01/04/20 19:28 01/04/20 19:28 01/04/20 19:28 Doctor's Discharge - Discharge Referrals: KENY QUEEN MD [Primary Care Provider] - Follow up as needed
[2020-01-04] MEDS ORDERED: HYDROMORPHONE HCL INJ/PF 2 MG/ML AMPULE IV ONE ×2 (21:32→23:31)
[2020-01-04] MEDS ORDERED: ONDANSETRON HCL INJ/PF 4 MG/2 ML SDV IV ONE (21:32)
[2020-01-04 21:36] LABS: ABSOLUTE RETICS # 0.446 10^6/uL (0.028-0.122); HEMATOCRIT 23.9 % (37.9-51.0); HEMOGLOBIN 8.2 g/dL (13.5-17.0); MEAN CORPUSCULAR HEMOGLOBIN 34.5 pg (27.0-33.4); MEAN CORPUSCULAR HGB CONC 34.1 g/dL (32.0-36.0); MEAN CORPUSCULAR VOLUME 101 fl (80-97); PLATELET COUNT 488 10^3/uL (150-450); RED BLOOD COUNT 2.37 10^6/uL (4.35-5.55); RETICULOCYTE COUNT (AUTO) 18.79 % (0.66-2.85); WHITE BLOOD COUNT 19.4 10^3/uL (4.0-10.5)
--- NOTE | 2020-01-04 21:38 | ER Document Report ---
ED General - General Chief Complaint: Sickle Cell Crisis Stated Complaint: BACK/RIGHT HIP PAIN Time Seen by Provider: 01/04/20 20:00 Mode of Arrival: Wheelchair Notes: Patient is a 24-year-old male with a history of sickle cell disease that comes emergency department for chief complaint of sharp pains in his back and in his hips. Pain is slightly worse in his right hip, he states symptoms started this afternoon after he got stuck standing out in the rain after work. Patient states this is typical for his sickle cell crisis and it is usually triggered by change in temperatures or inclement weather. Patient denies shortness of breath, chest pain, vomiting, headache, fever. Patient states he takes Tylenol usually for pain, he takes Percocet if needed for crisis but his pain became severe so he came in for treatment. He follows with Dr. Everett, he states he is out of his hydroxyurea and folic acid and has been so for 1 week. 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 TRAVEL OUTSIDE OF THE [place] IN LAST 30 DAYS: No - Related Data Allergies/Adverse Reactions: nickel Allergy (Verified 01/04/20 21:38) diphenhydramine [From Benadryl] Adverse Reaction (Verified 08/03/19 04:33) VOMITING Home Medications: percocet,jadenu, Past Medical History - General Information source: Patient - Social History Smoking Status: Never Smoker Frequency of alcohol use: Occasional Drug Abuse: None Lives with: Family Family History: Reviewed & Not Pertinent - Past Medical History Cardiac Medical History: Denies: Hx Coronary Artery Disease, Hx Hypercholesterolemia, Hx Hypertension Pulmonary Medical History: Denies: Hx Asthma, Hx COPD Neurological Medical History: Denies: Hx Seizures Endocrine Medical History: Denies: Hx Diabetes Mellitus Type 1, Hx Hyperthyroidism, Hx Hypothyroidism Renal/ Medical History: Denies: Hx Peritoneal Dialysis GI Medical History: Denies: Hx Cirrhosis, Hx Crohn's Disease, Hx Gastroesophageal Reflux Disease, Hx Hepatitis, Hx Ulcerative Colitis Musculoskeletal Medical History: Denies Hx Arthritis, Denies Hx Gout Skin Medical History: Denies Hx Eczema, Denies Hx Psoriasis Infectious Medical History: Denies: Hx Hepatitis Past Surgical History: Reports: Hx Abdominal Surgery - partial spleenectomy, Other - Partial splenectomy. - Immunizations Immunizations up to date: Yes Hx Diphtheria, Pertussis, Tetanus Vaccination: Yes Review of Systems - Review of Systems Constitutional: No symptoms reported EENT: No symptoms reported Cardiovascular: No symptoms reported Respiratory: No symptoms reported Gastrointestinal: No symptoms reported Genitourinary: No symptoms reported Male Genitourinary: No symptoms reported Musculoskeletal: See HPI Skin: No symptoms reported Hematologic/Lymphatic: See HPI Neurological/Psychological: No symptoms reported Physical Exam - Vital signs Vitals: Temp Pulse Resp BP Pulse Ox 98.3 F 103 H 18 133/61 H 97 01/04/20 19:28 01/04/20 19:28 01/04/20 19:28 01/04/20 19:28 01/04/20 19:28 - Notes Notes: GENERAL: Patient shifting uncomfortably and appears to be in some pain HEAD: Normocephalic, atraumatic. EYES: Pupils equal, round, and reactive to light. Extraocular movements intact. ENT: Oral mucosa moist, tongue midline. Oropharynx unremarkable. Airway patent. NECK: Full range of motion. Supple. Trachea midline. No lymphadenopathy. LUNGS: Clear to auscultation bilaterally, no wheezes, rales, or rhonchi. No respiratory distress. Non-tender chest wall. HEART: Regular rate and rhythm. No murmur ABDOMEN: Soft, non-tender. Non-distended. EXTREMITIES: Moves all 4 extremities spontaneously. No edema, normal radial and dorsalis pedis pulses bilaterally. No cyanosis. BACK: no cervical, thoracic, lumbar midline tenderness. No saddle anesthesia, normal distal neurovascular exam. Moves all extremities in full range of motion. NEUROLOGICAL: Alert and oriented x3. Normal speech. Cranial nerves II through XII grossly intact. Strength 5/5 in all extremities. PSYCH: Normal affect, normal mood. SKIN: Warm, dry, normal turgor. No rashes or lesions noted. Course - Re-evaluation Re-evalutation: Patient's vital signs are unremarkable, his lungs are clear, he denies chest pain, his abdomen is soft, however he does appear to be in pain, patient is shifting uncomfortably. Evaluation is consistent with sickle cell pain crisis but no evidence of acute chest syndrome. CBC shows leukocytosis, hemoglobin approximately baseline, reticulocyte counts are elevated, bilirubin indirect bilirubin is elevated, otherwise unremarkable. On evaluation patient is more comfortable but still reports some pain. Patient reevaluated again, he states he is improved but he still having intermittent significant pain, he requests admission for pain control. Based on patient's evaluation I believe he is having a sickle cell pain crisis, will discuss with hospitalist for admission. Discussed with Dr. Carlson, hospitalist, patient accepted to medical floor full admission. Patient states appreciation and agreement. - Vital Signs Vital signs: Temp Pulse Resp BP Pulse Ox 98.4 F 76 17 134/66 H 100 01/05/20 02:59 01/05/20 02:59 01/05/20 02:59 01/05/20 02:59 01/05/20 02:59 - Laboratory Result Diagrams: 01/04/20 21:13 01/04/20 21:13 Laboratory results interpreted by me: 01/04/20 01/04/20 21:13 21:13 WBC 19.4 H RBC 2.37 L Hgb 8.2 L Hct 23.9 L MCV 101 H MCH 34.5 H RDW 23.0 H Plt Count 488 H Reticulocyte # 0.446 H Band Neutrophils % 1 L Abs Neuts (Manual) 15.1 H Retic Count (auto) 18.79 H Total Bilirubin 2.5 H Total Protein 8.9 H Albumin 5.2 H Discharge - Discharge Clinical Impression: Sickle cell anemia with pain, Sickle cell pain crisis Condition: Stable Disposition: ADMITTED INPATIENT Admitting Provider: Aldo (Hospitalist) Unit Admitted: Medical Floor
[2020-01-04 22:04] LABS: ABSOLUTE LYMPHOCYTES# (MANUAL) 2.7 10^3/uL (0.5-4.7); BAND NEUTROPHILS % (MANUAL) 1 % (3-5); BASOPHILS % (MANUAL) 0 % (0-2); EOSINOPHILS % (MANUAL) 3 % (0-6); LYMPHOCYTES % (MANUAL) 14 % (13-45); MONOCYTES % (MANUAL) 5 % (3-13); NUCLEATED RED BLOOD CELLS 4 /100 WBC (0); SEGMENTED NEUTROPHILS % (MAN) 77 % (42-78); TOTAL CELLS COUNTED 100
[2020-01-04 22:05] LABS: ANISOCYTOSIS 3+; POIKILOCYTOSIS 2+; POLYCHROMASIA 1+; TOXIC GRANULATION 1+; TOXIC VACUOLATION PRESENT
[2020-01-04 22:06] LABS: ALBUMIN 5.2 g/dL (3.5-5.0); ALKALINE PHOSPHATASE 92 U/L (38-126); ANION GAP 12 (5-19); ASPARTATE AMINO TRANSFERASE 35 U/L (17-59); BILIRUBIN,DIRECT 0.4 mg/dL (0.0-0.4); BILIRUBIN,TOTAL 2.5 mg/dL (0.2-1.3); BLOOD UREA NITROGEN 14 mg/dL (7-20); CARBON DIOXIDE 25 mmol/L (22-30); CHLORIDE 101 mmol/L (98-107); GLUCOSE 104 mg/dL (75-110); OVALOCYTES 1+; PLATELET COMMENT INCREASED; PLATELET LARGE PRESENT; POTASSIUM 4.2 mmol/L (3.6-5.0); SICKLE RED CELLS 1+; TEAR DROP CELLS SLIGHT; TOTAL PROTEIN 8.9 g/dL (6.3-8.2)
[2020-01-04 22:17] LABS: APPEARANCE,URINE CLEAR; BILIRUBIN,URINE NEGATIVE (NEGATIVE); COLOR,URINE YELLOW; GLUCOSE, URINE NEGATIVE (NEGATIVE); KETONES,URINE NEGATIVE (NEGATIVE); LEUKOCYTE ESTERASE,URINE NEGATIVE (NEGATIVE); NITRITE,URINE NEGATIVE (NEGATIVE); PROTEIN,URINE NEGATIVE (NEGATIVE); URINE SPECIFIC GRAVITY 1.011; UROBILINOGEN,URINE NEGATIVE mg/dL (<2.0)
[2020-01-05] MEDS ORDERED: HYDROMORPHONE HCL INJ/PF 2 MG/ML AMPULE IV ONE (01:07)
[2020-01-05] MEDS ORDERED: MAGNESIUM HYDROXIDE SUSP 30 ML UDCUP PO PRN (02:01)
[2020-01-05] MEDS ORDERED: ACETAMINOPHEN 325 MG TABLET PO PRN (02:01)
[2020-01-05] MEDS ORDERED: MAG HYDROX/AL HYDROX/SIMETH SUSP 30 ML UDCUP PO PRN (02:01)
[2020-01-05] MEDS ORDERED: GUAIFENESIN SYRP 200 MG/10 ML UDC PO PRN (02:01)
[2020-01-05] MEDS ORDERED: LORAZEPAM INJ 2 MG/1 ML VIAL IV PRN (02:01)
[2020-01-05] MEDS ORDERED: MELATONIN 5 MG TABLET PO PRN (02:01)
[2020-01-05] MEDS ORDERED: HYDROMORPHONE HCL INJ/PF 2 MG/ML AMPULE IV PRN ×2 (02:02→02:28)
[2020-01-05] MEDS ORDERED: ONDANSETRON HCL INJ/PF 4 MG/2 ML SDV IV PRN (02:04)
[2020-01-05] MEDS: DEXTROSE 5%-LACTATED RINGERS 1,000 ML IV PRN ×4 (03:46→21:27)
[2020-01-05] MEDS: HEPARIN SOD (PORCINE) 5,000 UNIT/ML 1 ML VIAL SUBCUT SCH ×3 (05:15→21:22)
--- NOTE | 2020-01-05 05:21 | PDOC H&P ---
History of Present Illness Admission Date/PCP: 01/05/20 01:36 KENY QUEEN MD Patient complains of: Sickle cell crisis History of Present Illness: VIBHA YANG is a 24 year old male who presented to the emergency room with an acute sickle cell crisis. He admits the sudden onset of pain on the evening of 01/04/2020 after he was caught in the rain following work. His admits severe s harp constant pain in his mid and lower back, bilateral hips and bilateral thighs. He admits prior similar episodes with sickle cell crisis occurrences. He denies associated or accompanying signs and symptoms. He admits that though his sickle cell crises are usually triggered by changes in the weather he also has been out of his hydroxyurea and folic acid for a week or so. His pain did not improve with oral oxycodone at home. He has not identified any aggravating or ameliorating factors for his sickle cell crisis pain. In the emergency room he was found to have a leukocytosis of moderate anemia and a thrombocytosis. His pain did not respond adequately to IV analgesia and IV fluids, thus he was subsequently admitted to the hospital for further evaluation treatment. Past Medical History Cardiac Medical History: Denies: Coronary Artery Disease, Hyperlipidema, Hypertension Pulmonary Medical History: Denies: Asthma, Chronic Obstructive Pulmonary Disease (COPD) EENT Medical History: Denies: Cataracts, Ears - Hearing aids Neurological Medical History: Denies: Multiple Sclerosis, Seizures Endocrine Medical History: Denies: Diabetes Mellitus Type 1, Hyperthyroidism, Hypothyroidism Renal/ Medical History: Denies: Chronic Kidney Disease, Nephrolithiasis Malignancy Medical History: Reports: None GI Medical History: Denies: Cirrhosis, Crohn's Disease, Gastroesophageal Reflux Disease, Hepatitis, Peptic Ulcer Disease, Ulcerative Colitis Musculoskeltal Medical History: Denies: Arthritis, Fibromyalgia, Gout Skin Medical History: Denies: Eczema, Psoriasis Psychiatric Medical History: Denies: Alcohol Dependency, Substance Abuse, Tobacco Dependency Traumatic Medical History: Reports: None Hematology: Reports: Anemia - Sickle cell, Sickle Cell Disease Denies: Bleeding Tendencies Infectious Medical History: Reports: None Past Surgical History Past Surgical History: 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 Social History Information Source: Patient Lives with: Alone Smoking Status: Never Smoker Electronic Cigarette use?: No Frequency of Alcohol Use: Rare Hx Recreational Drug Use: No Drugs: None Hx Prescription Drug Abuse: No - Advance Directive Resuscitation Status: Full Code Surrogate healthcare decision maker:: Jayce Yang Family History Family History: CAD, DM, Hypertension, Other - Sickle cell anemia Parental Family History Reviewed: Yes Children Family History Reviewed: No Sibling(s) Family History Reviewed.: Yes Medication/Allergy Home Medications: Folic Acid [Folvite 1 mg Tablet] 1 mg PO DAILY 12/12/18 Hydroxyurea [Hydrea 500 mg Capsule] 1,000 mg PO DAILY 12/12/18 Acetaminophen [Tylenol 325 mg Tablet] 650 mg PO Q4HP PRN tablet 08/06/19 Docusate Sodium [Colace 100 mg Capsule] 100 mg PO DAILY capsule 08/06/19 Polyethylene Glycol 3350 [Miralax Powder 17 gm/Packet] 17 gm PO DAILYP PRN powd.pack 08/06/19 Sennosides/Docusate 8.6-50 mg [Senna Plus Tablet] 1 each PO DAILYP PRN tablet 08/06/19 Allergies/Adverse Reactions: nickel Allergy (Verified 01/04/20 21:38) diphenhydramine [From Benadryl] Adverse Reaction (Verified 08/03/19 04:33) VOMITING Review of Systems Constitutional: ABSENT: chills, fever(s) Eyes: ABSENT: visual disturbances, other - Eye pain Ears: ABSENT: hearing changes, other - Ear pain Nose, Mouth, and Throat: ABSENT: headache(s), sore throat Cardiovascular: ABSENT: chest pain, palpitations Respiratory: ABSENT: cough, dyspnea Gastrointestinal: ABSENT: abdominal pain, constipation, diarrhea, nausea, vomiting Genitourinary: ABSENT: dysuria, hematuria Musculoskeletal: PRESENT: as per HPI, back pain, other - Bilateral hip and thigh pain, right greater than left. ABSENT: joint swelling Integumentary: ABSENT: pruritus, rash Neurological: ABSENT: confusion, convulsions, focal weakness, memory loss, syncope Psychiatric: ABSENT: anxiety, depression Endocrine: ABSENT: cold intolerance, heat intolerance Hematologic/Lymphatic: ABSENT: easy bleeding, easy bruising Allergic/Immunologic: ABSENT: seasonal rhinorrhea Physical Exam Vital Signs: Temp Pulse Resp BP Pulse Ox 98.3 F 103 H 12 109/62 100 01/04/20 19:28 01/04/20 19:28 01/05/20 01:01 01/05/20 01:01 01/05/20 01:01 Intake & Output 01/03/20 01/04/20 01/05/20 23:59 23:59 23:59 Intake Total 1999 Balance 2000 Weight 58.967 kg General appearance: PRESENT: cooperative, well-developed, other - Moderate distress secondary to pain Head exam: PRESENT: atraumatic, normocephalic Eye exam: PRESENT: conjunctiva pink. ABSENT: conjunctival injection, scleral icterus Ear exam: PRESENT: normal external ear exam. ABSENT: bleeding, drainage Mouth exam: PRESENT: dry mucosa, neck supple Neck exam: ABSENT: thyromegaly, tracheal deviation Respiratory exam: PRESENT: clear to auscultation oxana, symmetrical, unlabored Cardiovascular exam: PRESENT: RRR. ABSENT: clicks, gallop, rubs Pulses: PRESENT: normal radial pulses, normal dorsalis pedis pul Vascular exam: PRESENT: normal capillary refill. ABSENT: pallor GI/Abdominal exam: PRESENT: normal bowel sounds, soft. ABSENT: tenderness Rectal exam: PRESENT: deferred Extremities exam: ABSENT: joint swelling, pedal edema Musculoskeletal exam: ABSENT: deformity, dislocation Neurological exam: PRESENT: alert, oriented to person, oriented to place, oriented to time, oriented to situation, CN II-XII grossly intact. ABSENT: motor sensory deficit Psychiatric exam: PRESENT: appropriate affect, normal mood Skin exam: PRESENT: dry, intact, warm. ABSENT: jaundice, rash, urticaria Results Laboratory Results: 01/04/20 21:13 01/04/20 21:13 01/04/20 01/04/20 01/04/20 21:13 21:13 21:42 WBC 19.4 H RBC 2.37 L Hgb 8.2 L Hct 23.9 L MCV 101 H MCH 34.5 H MCHC 34.1 RDW 23.0 H Plt Count 488 H Seg Neutrophils % Not Reportable Retic Count (auto) 18.79 H Sodium 137.7 Potassium 4.2 Chloride 101 Carbon Dioxide 25 Anion Gap 12 BUN 14 Creatinine 0.73 Est GFR ( Amer) > 60 Glucose 104 Calcium 10.0 Total Bilirubin 2.5 H AST 35 Alkaline Phosphatase 92 Total Protein 8.9 H Albumin 5.2 H Urine Color YELLOW Urine Appearance CLEAR Urine pH 7.0 Ur Specific [place] 1.011 Urine Protein NEGATIVE Urine Glucose (UA) NEGATIVE Urine Ketones NEGATIVE Urine Blood NEGATIVE Urine Nitrite NEGATIVE Ur Leukocyte Esterase NEGATIVE Urine WBC (Auto) 0 Assessment and Plan - Diagnosis (1) Sickle cell pain crisis Is this a current diagnosis for this admission?: Yes (2) Sickle cell anemia Qualifiers: Sickle-cell associated disorders: with unspecified crisis Qualified Code(s): D57.00 - Hb-SS disease with crisis, unspecified; D57.0 - Hb-SS disease with crisis Is this a current diagnosis for this admission?: Yes (3) Leukocytosis, unspecified Qualifiers: Leukocytosis type: unspecified Qualified Code(s): D72.829 - Elevated white blood cell count, unspecified Is this a current diagnosis for this admission?: Yes (4) Thrombocytosis Is this a current diagnosis for this admission?: Yes - Plan Summary Summary: Patient will be admitted to the medical floor he will receive routine supportive and symptomatic cares. Will be treated with IV fluids utilizing D5 LR at 167 mL/h. He will receive Dilaudid 0.5 to 2 mg IV every 3 hours as needed pain. He will receive Ativan 1 mg IV every 4 hours as needed for anxiety or restlessness. A hematology consultation will be obtained with Dr. Queen. He will be on a regular diet and his usual home medications will be restarted. CBCs, metabolic profiles and additional laboratory and/or radiographic evaluations be obtained as needed. - Time Time Spent with patient: Less than 15 minutes Medications reviewed and adjusted accordingly: Yes Anticipated Discharge Disposition: Home, Self Care Anticipated Discharge Timeframe: within 72 hours - Inpatient Certification Based on my medical assessment, after consideration of the patient's comorbidities, presenting symptoms, or acuity I expect that the services needed warrant INPATIENT care.: Yes I certify that my determination is in accordance with my understanding of Medicare's requirements for reasonable and necessary INPATIENT services [42 CFR 412.3e].: Yes Medical Necessity: Need For IV Fluids, Need for Pain Control
[2020-01-05] MEDS: HYDROMORPHONE HCL INJ/PF 2 MG/ML AMPULE IV PRN ×3 (06:47→18:55)
[2020-01-05] MEDS: FOLIC ACID 1 MG TABLET PO SCH (09:33)
[2020-01-05] MEDS: HYDROXYUREA 500 MG CAPSULE PO SCH (09:33)
[2020-01-05] MEDS: DOCUSATE SODIUM 100 MG CAPSULE PO SCH ×2 (09:33→17:01)
[2020-01-05] MEDS: FAMOTIDINE 20 MG TABLET PO SCH ×2 (09:33→21:26)
[2020-01-05] MEDS: PROMETHAZINE HCL INJ 25 MG/1 ML VIAL IV PRN (10:15)
--- NOTE | 2020-01-05 12:54 | PDOC CONSULTATION ---
Consultation Consult Date: 01/05/20 Attending physician:: LAVERNE BEARD Provider Consulted: KENY QUEEN Consult reason:: Sickle cell disease here with crisis History of Present Illness Admission Date/PCP: 01/05/20 01:36 KENY QUEEN MD Patient complains of: Usual sickle pain History of Present Illness: VIBHA ROWLAND is a 24 year old male well-known to our oncology clinic with sickle cell disease, here with crisis, he has been spotty with follow-up in our office. However, about 3 to 4 days prior to admission he began having his usual sickle related pain. Until then he was doing quite well, and does not regularly take pain medications and has been compliant with Hydrea and folic acid. Although he says he ran out of the medication a few days ago. Otherwise he has been on hydration as well as IV pain medication and doing okay this morning. Past Medical History Cardiac Medical History: Denies: Coronary Artery Disease, Hyperlipidema, Hypertension Pulmonary Medical History: Denies: Asthma, Chronic Obstructive Pulmonary Disease (COPD) EENT Medical History: Denies: Cataracts, Ears - Hearing aids Neurological Medical History: Denies: Multiple Sclerosis, Seizures Endocrine Medical History: Denies: Diabetes Mellitus Type 1, Hyperthyroidism, Hypothyroidism Renal/ Medical History: Denies: Chronic Kidney Disease, Nephrolithiasis Malignancy Medical History: Reports: None GI Medical History: Denies: Cirrhosis, Crohn's Disease, Gastroesophageal Reflux Disease, Hepatitis, Peptic Ulcer Disease, Ulcerative Colitis Musculoskeltal Medical History: Denies: Arthritis, Fibromyalgia, Gout Skin Medical History: Denies: Eczema, Psoriasis Psychiatric Medical History: Denies: Alcohol Dependency, Depression - Seeking treatment for possible depression, Substance Abuse, Tobacco Dependency Traumatic Medical History: Reports: None Hematology: Reports: Anemia - Sickle cell, Sickle Cell Disease Denies: Bleeding Tendencies Infectious Medical History: Reports: None Past Surgical History Past Surgical History: 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 Social History Information Source: Patient Lives with: Family Smoking Status: Never Smoker Electronic Cigarette use?: No Frequency of Alcohol Use: Rare Hx Recreational Drug Use: No Drugs: None Hx Prescription Drug Abuse: No - Advance Directive Resuscitation Status: Full Code Family History Family History: Reviewed & Not Pertinent Parental Family History Reviewed: Yes Children Family History Reviewed: Yes Sibling(s) Family History Reviewed.: Yes Medication/Allergy Home Medications: Folic Acid [Folvite 1 mg Tablet] 1 mg PO DAILY 12/12/18 Hydroxyurea [Hydrea 500 mg Capsule] 1,000 mg PO DAILY 12/12/18 Acetaminophen [Tylenol 325 mg Tablet] 650 mg PO Q4HP PRN tablet 08/06/19 Allergies/Adverse Reactions: nickel Allergy (Verified 01/04/20 21:38) diphenhydramine [From Benadryl] Adverse Reaction (Verified 08/03/19 04:33) VOMITING Review of Systems Constitutional: ABSENT: chills, fever(s), headache(s), weight gain, weight loss Eyes: ABSENT: visual disturbances Ears: ABSENT: hearing changes Cardiovascular: ABSENT: chest pain, dyspnea on exertion, edema, orthropnea, palpitations Respiratory: ABSENT: cough, hemoptysis Gastrointestinal: ABSENT: abdominal pain, constipation, diarrhea, hematemesis, hematochezia, nausea, vomiting Genitourinary: ABSENT: dysuria, hematuria Musculoskeletal: ABSENT: joint swelling Integumentary: ABSENT: rash, wounds Neurological: ABSENT: abnormal gait, abnormal speech, confusion, dizziness, focal weakness, syncope Psychiatric: ABSENT: anxiety, depression, homidical ideation, suicidal ideation Endocrine: ABSENT: cold intolerance, heat intolerance, polydipsia, polyuria Hematologic/Lymphatic: ABSENT: easy bleeding, easy bruising Physical Exam Vital Signs: Temp Pulse Resp BP Pulse Ox 98.0 F 67 17 110/50 L 97 01/05/20 11:09 01/05/20 11:09 01/05/20 11:09 01/05/20 11:09 01/05/20 11:09 Intake & Output 01/04/20 01/05/20 01/06/20 06:59 06:59 06:59 Intake Total 2100 1000 Balance 2100 1000 Weight 58.9 kg General appearance: PRESENT: no acute distress, well-developed, well-nourished Head exam: PRESENT: atraumatic, normocephalic Eye exam: PRESENT: conjunctiva pink, EOMI, PERRLA. ABSENT: scleral icterus Ear exam: PRESENT: normal external ear exam Mouth exam: PRESENT: moist, tongue midline Neck exam: ABSENT: carotid bruit, JVD, lymphadenopathy, thyromegaly Respiratory exam: PRESENT: clear to auscultation oxana. ABSENT: rales, rhonchi, wheezes Cardiovascular exam: PRESENT: RRR. ABSENT: diastolic murmur, rubs, systolic m urmur Pulses: PRESENT: normal dorsalis pedis pul Vascular exam: PRESENT: normal capillary refill GI/Abdominal exam: PRESENT: normal bowel sounds, soft. ABSENT: distended, guarding, mass, organolmegaly, rebound, tenderness Rectal exam: PRESENT: deferred Extremities exam: PRESENT: full ROM. ABSENT: calf tenderness, clubbing, pedal edema Neurological exam: PRESENT: alert, awake, oriented to person, oriented to place, oriented to time, oriented to situation, CN II-XII grossly intact. ABSENT: motor sensory deficit Psychiatric exam: PRESENT: appropriate affect, normal mood. ABSENT: homicidal ideation, suicidal ideation Skin exam: PRESENT: dry, intact, warm. ABSENT: cyanosis, rash Results Laboratory Results: 01/04/20 21:13 01/04/20 21:13 01/04/20 01/04/20 01/04/20 21:13 21:13 21:42 WBC 19.4 H RBC 2.37 L Hgb 8.2 L Hct 23.9 L MCV 101 H MCH 34.5 H MCHC 34.1 RDW 23.0 H Plt Count 488 H Seg Neutrophils % Not Reportable Retic Count (auto) 18.79 H Sodium 137.7 Potassium 4.2 Chloride 101 Carbon Dioxide 25 Anion Gap 12 BUN 14 Creatinine 0.73 Est GFR ( Amer) > 60 Glucose 104 Calcium 10.0 Total Bilirubin 2.5 H AST 35 Alkaline Phosphatase 92 Total Protein 8.9 H Albumin 5.2 H Urine Color YELLOW Urine Appearance CLEAR Urine pH 7.0 Ur Specific [place] 1.011 Urine Protein NEGATIVE Urine Glucose (UA) NEGATIVE Urine Ketones NEGATIVE Urine Blood NEGATIVE Urine Nitrite NEGATIVE Ur Leukocyte Esterase NEGATIVE Urine WBC (Auto) 0 Assessment & Plan - Diagnosis (1) Sickle cell pain crisis Is this a current diagnosis for this admission?: Yes Plan: He has all of his supportive medications on board now, I will take care of pain needs as well as transfusion needs. 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 I will follow. - Time Time Spent: 50 to 70 Minutes - Inpatient Certification Based on my medical assessment, after consideration of the patient's comorbidit ies, presenting symptoms, or acuity I expect that the services needed warrant INPATIENT care.: Yes I certify that my determination is in accordance with my understanding of [place]'s requirements for reasonable and necessary INPATIENT services [42 CFR 412.3e].: Yes Medical Necessity: Need For IV Fluids, Need for Pain Control
--- NOTE | 2020-01-05 16:44 | RADIOLOGY REPORT (SQ) ---
EXAM DESCRIPTION: CHEST 2 VIEWS IMAGES COMPLETED DATE/TIME: 01/05/2020 3:56 pm REASON FOR STUDY: chest pain, sickle cell COMPARISON: None. EXAM PARAMETERS: NUMBER OF VIEWS: two views TECHNIQUE: Digital Frontal and Lateral radiographic views of the chest acquired. RADIATION DOSE: NA LIMITATIONS: none FINDINGS: LUNGS AND PLEURA: No opacities, masses or pneumothorax. No pleural effusion. MEDIASTINUM AND HILAR STRUCTURES: No masses or contour abnormalities. HEART AND VASCULAR STRUCTURES: Heart normal size. No evidence for failure. BONES: No acute findings. HARDWARE: None in the chest. OTHER: No other significant finding. IMPRESSION: NO ACUTE RADIOGRAPHIC FINDING IN THE CHEST. TECHNICAL DOCUMENTATION: JOB ID: [id number] 2010 [employer]- All Rights Reserved Reading location - IP/workstation name: [email or web address]
--- NOTE | 2020-01-05 17:18 | EKG REPORT ---
SEVERITY:- ABNORMAL ECG - SINUS RHYTHM CONSIDER LEFT VENTRICULAR HYPERTROPHY INFERIOR Q WAVES, PROBABLY NORMAL VARIATION : Confirmed by: Lucila Ceballos 05-Jan-2020 17:17:22
--- NOTE | 2020-01-05 18:43 | Progress Note ---
Provider Note Provider Note: Patient admitted late this morning by Dr. Carlson, see full H&P for full details. Patient mated for sickle cell crisis, pain management medications ordered. Hematology/oncology consulted and I discussed the case with Dr. Jaspal whitt today. Patient seen and examined by me seems to be a bit sleepy and we need to do better by giving him less narcotics to avoid excessive somnolence. Patient states his pain is well controlled.
[2020-01-06] MEDS: HYDROMORPHONE HCL INJ/PF 2 MG/ML AMPULE IV PRN ×5 (00:13→22:45)
[2020-01-06] MEDS: DEXTROSE 5%-LACTATED RINGERS 1,000 ML IV PRN ×3 (03:28→18:42)
[2020-01-06] MEDS: HEPARIN SOD (PORCINE) 5,000 UNIT/ML 1 ML VIAL SUBCUT SCH ×3 (05:10→21:11)
[2020-01-06 05:54] LABS: HEMATOCRIT 19.1 % (37.9-51.0); MEAN CORPUSCULAR HEMOGLOBIN 34.9 pg (27.0-33.4); MEAN CORPUSCULAR HGB CONC 35.5 g/dL (32.0-36.0); MEAN CORPUSCULAR VOLUME 98 fl (80-97); PLATELET COUNT 345 10^3/uL (150-450); RED BLOOD COUNT 1.94 10^6/uL (4.35-5.55); RED CELL DISTRIBUTION WIDTH 22.5 % (11.5-14.0); WHITE BLOOD COUNT 11.5 10^3/uL (4.0-10.5)
[2020-01-06] MEDS: PROMETHAZINE HCL INJ 25 MG/1 ML VIAL IV PRN (06:05)
[2020-01-06 06:16] LABS: ANION GAP 5 (5-19); BLOOD UREA NITROGEN 6 mg/dL (7-20); CALCIUM 8.4 mg/dL (8.4-10.2); CARBON DIOXIDE 27 mmol/L (22-30); CHLORIDE 104 mmol/L (98-107); GLUCOSE 116 mg/dL (75-110); POTASSIUM 4.2 mmol/L (3.6-5.0)
[2020-01-06 06:55] LABS: HEMOGLOBIN 6.8 g/dL (13.5-17.0)
[2020-01-06] MEDS ORDERED: ACETAMINOPHEN 325 MG TABLET PO PRN (07:06)
[2020-01-06] MEDS ORDERED: DIPHENHYDRAMINE HCL 25 MG CAPSULE PO PRN (07:07)
[2020-01-06] MEDS: FAMOTIDINE 20 MG TABLET PO SCH ×2 (09:22→21:12)
[2020-01-06] MEDS: HYDROXYUREA 500 MG CAPSULE PO SCH (09:22)
[2020-01-06] MEDS: DOCUSATE SODIUM 100 MG CAPSULE PO SCH ×2 (09:23→17:02)
[2020-01-06] MEDS: FOLIC ACID 1 MG TABLET PO SCH (09:23)
[2020-01-06 16:44] LABS: HEMATOCRIT 21.8 % (37.9-51.0); MEAN CORPUSCULAR HEMOGLOBIN 34.1 pg (27.0-33.4); MEAN CORPUSCULAR HGB CONC 35.4 g/dL (32.0-36.0); MEAN CORPUSCULAR VOLUME 96 fl (80-97); PLATELET COUNT 363 10^3/uL (150-450); RED BLOOD COUNT 2.26 10^6/uL (4.35-5.55); RED CELL DISTRIBUTION WIDTH 22.6 % (11.5-14.0); WHITE BLOOD COUNT 11.3 10^3/uL (4.0-10.5)
[2020-01-06 17:05] LABS: ABSOLUTE LYMPHOCYTES# (MANUAL) 1.9 10^3/uL (0.5-4.7); BASOPHILS % (MANUAL) 1 % (0-2); EOSINOPHILS % (MANUAL) 3 % (0-6); LYMPHOCYTES % (MANUAL) 17 % (13-45); MONOCYTES % (MANUAL) 9 % (3-13); NUCLEATED RED BLOOD CELLS 11 /100 WBC (0); SEGMENTED NEUTROPHILS % (MAN) 70 % (42-78); TOTAL CELLS COUNTED 100
[2020-01-06 17:13] LABS: ANISOCYTOSIS 3+; OVALOCYTES 2+; PLATELET COMMENT ADEQUATE; POLYCHROMASIA SLIGHT; SICKLE RED CELLS SLIGHT; TARGET CELLS 1+
[2020-01-06 17:15] LABS: HEMOGLOBIN 7.7 g/dL (13.5-17.0)
--- NOTE | 2020-01-06 20:21 | PDOC PROGRESS REPORT ---
Subjective Subjective:: Per Admitting Physician: "VIBHA ROWLAND is a 24 year old male who presented to the emergency room with an acute sickle cell crisis. He admits the sudden onset of pain on the evening of 01/04/2020 after he was caught in the rain following work. His admits severe sharp constant pain in his mid and lower back, bilateral hips and bilateral thighs. He admits prior similar episodes with sickle cell crisis occurrences. He denies associated or accompanying signs and symptoms. He admits that though his sickle cell crises are usually triggered by changes in the weather he also has been out of his hydroxyurea and folic acid for a week or so. His pain did not improve with oral oxycodone at home. He has not identified any aggravating or ameliorating factors for his sickle cell crisis pain. In the emergency room he was found to have a leukocytosis of moderate anemia and a thrombocytosis. His pain did not respond adequately to IV analgesia and IV fluids, thus he was subsequently admitted to the hospital for further evaluation treatment." 01/06/2020 Pain is well controlled today and patient is not as somnolent as he was yesterday on a lower dose of narcotics. IV fluids continue. Hemoglobin is low, below 7, and quantitative analyst developer has ordered transfusion of 1 unit PRBC today. Trending hemoglobin afterwards. Patient has no new complaints today. WBC coming down. Reason For Visit: SICKLE CELL CRISIS Physical Exam Vital Signs: Temp Pulse Resp BP Pulse Ox 95.8 F L 90 16 110/55 L 95 01/06/20 15:05 01/06/20 15:05 01/06/20 15:05 01/06/20 15:05 01/06/20 15:05 Intake & Output 01/05/20 01/06/20 01/07/20 06:59 06:59 06:59 Intake Total 2099 4251 3501 Balance 2099 4251 3501 Weight 58.9 kg 59.8 kg General appearance: PRESENT: no acute distress, well-developed, well-nourished Head exam: PRESENT: atraumatic, normocephalic Eye exam: PRESENT: conjunctiva pink Mouth exam: PRESENT: moist Respiratory exam: PRESENT: clear to auscultation oxana. ABSENT: rales, rhonchi, wheezes Cardiovascular exam: PRESENT: RRR. ABSENT: diastolic murmur, rubs, systolic murmur GI/Abdominal exam: PRESENT: normal bowel sounds, soft. ABSENT: distended, guarding, mass, organolmegaly, rebound, tenderness Extremities exam: PRESENT: other - Pain in hips and back consistent with sickle cell crises per patient Neurological exam: PRESENT: alert, awake, oriented to person, oriented to place, oriented to time, oriented to situation Skin exam: PRESENT: dry, intact, warm Results Laboratory Results: 01/06/20 16:30 01/06/20 05:22 01/06/20 01/06/20 01/06/20 05:22 05:22 07:50 WBC 11.5 H RBC 1.94 L Hgb 6.8 L Hct 19.1 L MCV 98 H MCH 34.9 H MCHC 35.5 RDW 22.5 H Plt Count 345 Seg Neutrophils % Sodium 136.4 L Potassium 4.2 Chloride 104 Carbon Dioxide 27 Anion Gap 5 BUN 6 L Creatinine 0.61 Est GFR ( Amer) > 60 Glucose 116 H Calcium 8.4 Magnesium 2.0 Blood Type O POSITIVE Antibody Screen NEGATIVE 01/06/20 16:30 WBC 11.3 H RBC 2.26 L Hgb 7.7 L Hct 21.8 L MCV 96 MCH 34.1 H MCHC 35.4 RDW 22.6 H Plt Count 363 Seg Neutrophils % Not Reportable Sodium Potassium Chloride Carbon Dioxide Anion Gap BUN Creatinine Est GFR ( Amer) Glucose Calcium Magnesium Blood Type Antibody Screen Impressions: Chest X-Ray 01/05/20 10:09 IMPRESSION: NO ACUTE RADIOGRAPHIC FINDING IN THE CHEST. Assessment and Plan - Diagnosis (1) Sickle cell anemia with pain Is this a current diagnosis for this admission?: Yes Plan: Pain management per hematology has been consulted -This 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 Will be treated with IV fluids utilizing D5 LR at 167 mL/h. He will receive Dilaudid 0.5 to 2 mg IV every 3 hours as needed pain. He will receive Ativan 1 mg IV every 4 hours as needed for anxiety or restlessness. A hematology consultation will be obtained with Dr. Everett. He will be on a regular diet and his usual home medications will be restarted. CBCs, metabolic profiles and additional laboratory and/or radiographic evaluations be obtained as needed. - Time Time Spent with patient: 15-24 minutes Medications reviewed and adjusted accordingly: Yes Anticipated Discharge Disposition: Home, Self Care Anticipated Discharge Timeframe: within 72 hours - Inpatient Certification Based on my medical assessment, after consideration of the patient's comorbidities, presenting symptoms, or acuity I expect that the services needed warrant INPATIENT care.: Yes I certify that my determination is in accordance with my understanding of Medicare's requirements for reasonable and necessary INPATIENT services [42 CFR 412.3e].: Yes Medical Necessity: Significant Comorbidiites Make Outpatient Treatment Too Risky, Need Close Monitoring Due to Risk of Patient Decompensation, Need for Pain Control, Risk of Complication if Not Cared For in Hospital, Risk of Diagnosis Which Will Require Inpatient Eval/Care/Monitoring
[2020-01-07] MEDS: DEXTROSE 5%-LACTATED RINGERS 1,000 ML IV PRN ×4 (02:39→22:35)
[2020-01-07] MEDS: HYDROMORPHONE HCL INJ/PF 2 MG/ML AMPULE IV PRN ×4 (02:40→22:32)
[2020-01-07] MEDS: HEPARIN SOD (PORCINE) 5,000 UNIT/ML 1 ML VIAL SUBCUT SCH ×3 (05:33→22:19)
[2020-01-07 05:47] LABS: HEMATOCRIT 21.2 % (37.9-51.0); MEAN CORPUSCULAR HEMOGLOBIN 34.7 pg (27.0-33.4); MEAN CORPUSCULAR HGB CONC 36.3 g/dL (32.0-36.0); MEAN CORPUSCULAR VOLUME 96 fl (80-97); PLATELET COUNT 386 10^3/uL (150-450); RED BLOOD COUNT 2.21 10^6/uL (4.35-5.55); RED CELL DISTRIBUTION WIDTH 21.8 % (11.5-14.0); WHITE BLOOD COUNT 13.9 10^3/uL (4.0-10.5)
[2020-01-07 05:48] LABS: HEMOGLOBIN 7.7 g/dL (13.5-17.0)
--- NOTE | 2020-01-07 07:51 | PDOC PROGRESS REPORT ---
Subjective Progress Note for:: 01/07/20 Subjective:: Patient seems to be doing better, still having pain Reason For Visit: SICKLE CELL CRISIS Physical Exam Vital Signs: Temp Pulse Resp BP Pulse Ox 98.3 F 95 20 137/61 H 100 01/07/20 00:58 01/07/20 00:58 01/07/20 00:58 01/07/20 00:58 01/07/20 00:58 Intake & Output 01/06/20 01/07/20 01/08/20 06:59 06:59 06:59 Intake Total 4251 5401 Balance 4251 5401 Weight 59.8 kg 63.2 kg General appearance: PRESENT: no acute distress, well-developed, well-nourished Head exam: PRESENT: atraumatic, normocephalic Eye exam: PRESENT: conjunctiva pink, EOMI, PERRLA. ABSENT: scleral icterus Ear exam: PRESENT: normal external ear exam Mouth exam: PRESENT: moist, tongue midline Neck exam: ABSENT: carotid bruit, JVD, lymphadenopathy, thyromegaly Respiratory exam: PRESENT: clear to auscultation oxana. ABSENT: rales, rhonchi, wheezes Cardiovascular exam: PRESENT: RRR. ABSENT: diastolic murmur, rubs, systolic murmur Pulses: PRESENT: normal dorsalis pedis pul Vascular exam: PRESENT: normal capillary refill GI/Abdominal exam: PRESENT: normal bowel sounds, soft. ABSENT: distended, guarding, mass, organolmegaly, rebound, tenderness Rectal exam: PRESENT: deferred Extremities exam: PRESENT: full ROM. ABSENT: calf tenderness, clubbing, pedal edema Neurological exam: PRESENT: alert, awake, oriented to person, oriented to place, oriented to time, oriented to situation, CN II-XII grossly intact. ABSENT: motor sensory deficit Psychiatric exam: PRESENT: appropriate affect, normal mood. ABSENT: homicidal ideation, suicidal ideation Skin exam: PRESENT: dry, intact, warm. ABSENT: cyanosis, rash Results Laboratory Results: 01/07/20 04:37 01/06/20 05:22 01/06/20 01/06/20 01/07/20 07:50 16:30 04:37 WBC 11.3 H 13.9 H RBC 2.26 L 2.21 L Hgb 7.7 L 7.7 L Hct 21.8 L 21.2 L MCV 96 96 MCH 34.1 H 34.7 H MCHC 35.4 36.3 H RDW 22.6 H 21.8 H Plt Count 363 386 Seg Neutrophils % Not Reportable Blood Type O POSITIVE Antibody Screen NEGATIVE Impressions: Chest X-Ray 01/05/20 10:09 IMPRESSION: NO ACUTE RADIOGRAPHIC FINDING IN THE CHEST. Assessment & Plan - Diagnosis (1) Sickle cell pain crisis Is this a current diagnosis for this admission?: Yes Plan: Improving, may require another 24 hours in house, hemoglobin stable posttransfusion. 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 Hemolytic anemia type: other hemoglobinopathy Qualified Code(s): D58.2 - Other hemoglobinopathies Is this a current diagnosis for this admission?: Yes Plan: transfused yesterday, hemoglobin stable thereafter - Time Time Spent with patient: 15-24 minutes
[2020-01-07] MEDS: FOLIC ACID 1 MG TABLET PO SCH (09:33)
[2020-01-07] MEDS: HYDROXYUREA 500 MG CAPSULE PO SCH (09:33)
[2020-01-07] MEDS: DOCUSATE SODIUM 100 MG CAPSULE PO SCH ×2 (09:47→17:44)
[2020-01-07] MEDS: FAMOTIDINE 20 MG TABLET PO SCH ×2 (09:47→22:38)
--- NOTE | 2020-01-07 17:58 | PDOC PROGRESS REPORT ---
Subjective Subjective:: Per Admitting Physician: "VIBHA ROWLAND is a 24 year old male who presented to the emergency room with an acute sickle cell crisis. He admits the sudden onset of pain on the evening of 01/04/2020 after he was caught in the rain following work. His admits severe sharp constant pain in his mid and lower back, bilateral hips and bilateral thighs. He admits prior similar episodes with sickle cell crisis occurrences. He denies associated or accompanying signs and symptoms. He admits that though his sickle cell crises are usually triggered by changes in the weather he also has been out of his hydroxyurea and folic acid for a week or so. His pain did not improve with oral oxycodone at home. He has not identified any aggravating or ameliorating factors for his sickle cell crisis pain. In the emergency room he was found to have a leukocytosis of moderate anemia and a thrombocytosis. His pain did not respond adequately to IV analgesia and IV fluids, thus he was subsequently admitted to the hospital for further evaluation treatment." 01/06/2020 Pain is well controlled today and patient is not as somnolent as he was yesterday on a lower dose of narcotics. IV fluids continue. 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 Trending hemoglobin afterwards. Patient has no new complaints today. WBC coming down. 01/07/2020 No significant changes today, hemoglobin stable, pain well controlled per patient. States his pain is gradually improving but he is not back to baseline or ready to go home yet. No new complaints Reason For Visit: SICKLE CELL CRISIS Physical Exam Vital Signs: Temp Pulse Resp BP Pulse Ox 98.6 F 84 16 130/59 H 98 01/07/20 11:57 01/07/20 11:57 01/07/20 11:57 01/07/20 11:57 01/07/20 11:57 Intake & Output 01/06/20 01/07/20 01/08/20 06:59 06:59 06:59 Intake Total 4251 5401 2600 Balance 4251 5401 2600 Weight 59.8 kg 63.2 kg 62 kg Exam: General appearance: PRESENT: no acute distress, well-developed, well-nourished, states his pain is less today Head exam: PRESENT: atraumatic, normocephalic Eye exam: PRESENT: conjunctiva pink Mouth exam: PRESENT: moist Respiratory exam: PRESENT: clear to auscultation oxana. ABSENT: rales, rhonchi, wheezes Cardiovascular exam: PRESENT: RRR. ABSENT: diastolic murmur, rubs, systolic murmur GI/Abdominal exam: PRESENT: normal bowel sounds, soft. ABSENT: distended, guarding, mass, organolmegaly, rebound, tenderness Extremities exam: PRESENT: other - Pain in hips and back consistent with sickle cell crises per patient Neurological exam: PRESENT: alert, awake, oriented to person, oriented to place, oriented to time, oriented to situation Skin exam: PRESENT: dry, intact, warm Results Laboratory Results: 01/07/20 04:37 01/06/20 05:22 01/07/20 04:37 WBC 13.9 H RBC 2.21 L Hgb 7.7 L Hct 21.2 L MCV 96 MCH 34.7 H MCHC 36.3 H RDW 21.8 H Plt Count 386 Impressions: Chest X-Ray 01/05/20 10:09 IMPRESSION: NO ACUTE RADIOGRAPHIC FINDING IN THE CHEST. Assessment and Plan - Diagnosis (1) Sickle cell anemia with pain Is this a current diagnosis for this admission?: Yes Plan: Pain management per hematology has been consulted -This patient follows with Dr. Jaspal blanca hemoglobin Transfused 1 unit PRBC Continue Hydrea IV fluids Gradual pain improvement, not at baseline yet (2) Post-splenectomy Is this a current diagnosis for this admission?: Yes (3) Sickle cell anemia Qualifiers: Sickle-cell associated disorders: with unspecified crisis Qualified Code(s): D57.00 - Hb-SS disease with crisis, unspecified; D57.0 - Hb-SS disease with crisis Is this a current diagnosis for this admission?: Yes - Plan Summary Summary: Patient will be admitted to the medical floor he will receive routine supportive and symptomatic cares. Will be treated with IV fluids utilizing D5 LR at 167 mL/h. He will receive Dilaudid 0.5 to 2 mg IV every 3 hours as needed pain. He will receive Ativan 1 mg IV every 4 hours as needed for anxiety or restlessness. A hematology consultation will be obtained with Dr. Everett. He will be on a regular diet and his usual home medications will be restarted. CBCs, metabolic profiles and additional laboratory and/or radiographic evaluations be obtained as needed. - Time Time Spent with patient: 15-24 minutes Medications reviewed and adjusted accordingly: Yes Anticipated Discharge Disposition: Home, Self Care Anticipated Discharge Timeframe: within 48 hours - Inpatient Certification Based on my medical assessment, after consideration of the patient's comorbidities, presenting symptoms, or acuity I expect that the services needed warrant INPATIENT care.: Yes I certify that my determination is in accordance with my understanding of Medicare's requirements for reasonable and necessary INPATIENT services [42 CFR 412.3e].: Yes Medical Necessity: Significant Comorbidiites Make Outpatient Treatment Too Risky, Need Close Monitoring Due to Risk of Patient Decompensation, Need For IV Fluids, Need for Pain Control, Risk of Complication if Not Cared For in Hospital, Risk of Diagnosis Which Will Require Inpatient Eval/Care/Monitoring
[2020-01-08] MEDS: HYDROMORPHONE HCL INJ/PF 2 MG/ML AMPULE IV PRN ×2 (03:09→07:06)
[2020-01-08 04:21] LABS: HEMATOCRIT 21.9 % (37.9-51.0); MEAN CORPUSCULAR HEMOGLOBIN 33.4 pg (27.0-33.4); MEAN CORPUSCULAR HGB CONC 34.2 g/dL (32.0-36.0); MEAN CORPUSCULAR VOLUME 98 fl (80-97); PLATELET COUNT 401 10^3/uL (150-450); RED BLOOD COUNT 2.24 10^6/uL (4.35-5.55); RED CELL DISTRIBUTION WIDTH 20.3 % (11.5-14.0); WHITE BLOOD COUNT 11.5 10^3/uL (4.0-10.5)
[2020-01-08 04:28] LABS: HEMOGLOBIN 7.5 g/dL (13.5-17.0)
[2020-01-08] MEDS: DEXTROSE 5%-LACTATED RINGERS 1,000 ML IV PRN (05:00)
[2020-01-08] MEDS: HEPARIN SOD (PORCINE) 5,000 UNIT/ML 1 ML VIAL SUBCUT SCH (05:08)
--- NOTE | 2020-01-08 07:53 | PDOC PROGRESS REPORT ---
Subjective Progress Note for:: 01/08/20 Subjective:: Pt doing better, feels ready to dc today. He has pain meds at home. Needs work off note for 1 more week. Nursing will give that note Reason For Visit: SICKLE CELL CRISIS Physical Exam Vital Signs: Temp Pulse Resp BP Pulse Ox 98.5 F 80 16 122/52 L 97 01/07/20 16:25 01/07/20 16:25 01/07/20 16:25 01/07/20 16:25 01/07/20 16:25 Intake & Output 01/07/20 01/08/20 01/09/20 06:59 06:59 06:59 Intake Total 5401 5600 Balance 5401 5600 Weight 63.2 kg 58.9 kg General appearance: PRESENT: no acute distress, well-developed, well-nourished Head exam: PRESENT: atraumatic, normocephalic Eye exam: PRESENT: conjunctiva pink, EOMI, PERRLA. ABSENT: scleral icterus Ear exam: PRESENT: normal external ear exam Mouth exam: PRESENT: moist, tongue midline Neck exam: ABSENT: carotid bruit, JVD, lymphadenopathy, thyromegaly Respiratory exam: PRESENT: clear to auscultation oxana. ABSENT: rales, rhonchi, wheezes Cardiovascular exam: PRESENT: RRR. ABSENT: diastolic murmur, rubs, systolic murmur Pulses: PRESENT: normal dorsalis pedis pul Vascular exam: PRESENT: normal capillary refill GI/Abdominal exam: PRESENT: normal bowel sounds, soft. ABSENT: distended, guarding, mass, organolmegaly, rebound, tenderness Rectal exam: PRESENT: deferred Extremities exam: PRESENT: full ROM. ABSENT: calf tenderness, clubbing, pedal e lashonda Neurological exam: PRESENT: alert, awake, oriented to person, oriented to place, oriented to time, oriented to situation, CN II-XII grossly intact. ABSENT: motor sensory deficit Psychiatric exam: PRESENT: appropriate affect, normal mood. ABSENT: homicidal ideation, suicidal ideation Skin exam: PRESENT: dry, intact, warm. ABSENT: cyanosis, rash Results Laboratory Results: 01/08/20 03:37 01/06/20 05:22 01/08/20 03:37 WBC 11.5 H RBC 2.24 L Hgb 7.5 L Hct 21.9 L MCV 98 H MCH 33.4 MCHC 34.2 RDW 20.3 H Plt Count 401 Impressions: Chest X-Ray 01/05/20 10:09 IMPRESSION: NO ACUTE RADIOGRAPHIC FINDING IN THE CHEST. Assessment & Plan - Diagnosis (1) Sickle cell pain crisis Is this a current diagnosis for this admission?: Yes Plan: improved enough for dc 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 Hemolytic anemia type: other hemoglobinopathy Qualified Code(s): D58.2 - Other hemoglobinopathies Is this a current diagnosis for this admission?: Yes Plan: cbc slight drop, will recheck as outpt - Time Time Spent with patient: 15-24 minutes
[2020-01-08] MEDS ORDERED: NORMAL SALINE 1000 ML 1,000 ML IV PRN (08:26)
[2020-01-08] MEDS: FOLIC ACID 1 MG TABLET PO SCH (09:44)
[2020-01-08] MEDS: FAMOTIDINE 20 MG TABLET PO SCH (09:44)
[2020-01-08] MEDS: HYDROXYUREA 500 MG CAPSULE PO SCH (09:45)
[2020-01-08] MEDS: DOCUSATE SODIUM 100 MG CAPSULE PO SCH (10:04)
[2020-01-08 11:58] VITALS: BP 118/65
--- NOTE | 2020-01-08 18:03 | PDOC DISCHARGE SUMMARY ---
Impression - Admit/DC Date/PCP Admission Date/Primary Care Provider: 01/05/20 01:36 KENY QUEEN MD Discharge Date: 01/08/20 - Discharge Diagnosis (1) Post-splenectomy Is this a current diagnosis for this admission?: Yes (2) Sickle cell anemia Is this a current diagnosis for this admission?: Yes (3) Sickle cell anemia with pain Is this a current diagnosis for this admission?: Yes (4) Thrombocytosis Is this a current diagnosis for this admission?: Yes - Additional Information Resuscitation Status: Full Code Discharge Diet: As Tolerated Discharge Activity: Activity As Tolerated, Balance Activity w/Rest, Slowly Increase Activity Referrals: KENY QUEEN MD [Primary Care Provider] - 01/31/20 3:00 pm (3 weeks ) Home Medications: Folic Acid [Folvite 1 mg Tablet] 1 mg PO DAILY 12/12/18 Hydroxyurea [Hydrea 500 mg Capsule] 1,000 mg PO DAILY 12/12/18 Acetaminophen [Tylenol 325 mg Tablet] 650 mg PO Q4HP PRN tablet 08/06/19 History of Present Illiness History of Present Illness: Per H&P by Dr. Carlson: VIBHA ROWLAND is a 24 year old male who presented to the emergency room with an acute sickle cell crisis. He admits the sudden onset of pain on the evening of 01/04/2020 after he was caught in the rain following work. His admits severe sharp constant pain in his mid and lower back, bilateral hips and bilateral thighs. He admits prior similar episodes with sickle cell crisis occurrences. He denies associated or accompanying signs and symptoms. He admits that though his sickle cell crises are usually triggered by changes in the weather he also has been out of his hydroxyurea and folic acid for a week or so. His pain did not improve with oral oxycodone at home. He has not identified any aggravating or ameliorating factors for his sickle cell crisis pain. In the emergency room he was found to have a leukocytosis of moderate anemia and a thrombocytosis. His pain did not respond adequately to IV analgesia and IV fluids, thus he was subsequently admitted to the hospital for further evaluation treatment. Hospital Course Hospital Course: (1) Sickle cell anemia with pain Followed by Dr. Queen as an outpatient Hematology consulted; pain management per Dr. Queen Continued hydroxyurea and folic acid. Received generous IV fluids. Encouraged ambulation. Patient reports that his pain is now decreased enough to desire discharge to home. Cleared for discharge by Dr. Queen. Patient is encouraged to rest and drink plenty of fluids. Continue medications as prescribed. Follow up with Dr. Queen as scheduled. Return to the emergency department, as needed, for concerning symptoms. (2) Post-splenectomy Immunocompromised Remained afebrile; no evidence of infectious process. No indications for antibiotics. (3) Sickle cell anemia s/p 1 unit PRBC; Hgb 7.[address] Queen; cleared for d/c to home Continue home dose Hydroxyurea and Folic Acid. Outpatient follow up as scheduled. Physical Exam Vital Signs: Temp Pulse Resp BP Pulse Ox 98.0 F 70 16 118/65 98 01/08/20 11:56 01/08/20 11:56 01/08/20 11:56 01/08/20 11:56 01/08/20 11:56 Intake & Output 01/07/20 01/08/20 01/09/20 06:59 06:59 06:59 Intake Total 5401 5600 1192 Balance 5401 5600 1192 Weight 63.2 kg 58.9 kg General appearance: PRESENT: no acute distress, well-developed, well-nourished Head exam: PRESENT: atraumatic, normocephalic Eye exam: PRESENT: conjunctiva pink, EOMI, PERRLA. ABSENT: scleral icterus Mouth exam: PRESENT: moist, tongue midline Respiratory exam: PRESENT: clear to auscultation oxana, symmetrical, unlabored. ABSENT: rales, rhonchi, wheezes Cardiovascular exam: PRESENT: RRR, +S1, +S2. ABSENT: diastolic murmur, rubs, systolic murmur Vascular exam: PRESENT: normal capillary refill Extremities exam: PRESENT: full ROM. ABSENT: calf tenderness, clubbing, pedal edema Musculoskeletal exam: PRESENT: ambulatory Neurological exam: PRESENT: alert, awake, oriented to person, oriented to place, oriented to time, oriented to situation, CN II-XII grossly intact. ABSENT: motor sensory deficit Psychiatric exam: PRESENT: appropriate affect, normal mood. ABSENT: homicidal ideation, suicidal ideation Skin exam: PRESENT: dry, intact, warm. ABSENT: cyanosis, rash Results Laboratory Results: WBC 11.5 10^3/uL (4.0-10.5) H 01/08/20 03:37 RBC 2.24 10^6/uL (4.35-5.55) L 01/08/20 03:37 Hgb 7.5 g/dL (13.5-17.0) L 01/08/20 03:37 Hct 21.9 % (37.9-51.0) L 01/08/20 03:37 MCV 98 fl (80-97) H 01/08/20 03:37 MCH 33.4 pg (27.0-33.4) 01/08/20 03:37 MCHC 34.2 g/dL (32.0-36.0) 01/08/20 03:37 RDW 20.3 % (11.5-14.0) H 01/08/20 03:37 Plt Count 401 10^3/uL (150-450) 01/08/20 03:37 Lymph % (Auto) Not Reportable 01/06/20 16:30 [place] % (Auto) Not Reportable 01/06/20 16:30 Eos % (Auto) Not Reportable 01/06/20 16:30 Baso % (Auto) Not Reportable 01/06/20 16:30 Reticulocyte # 0.446 10^6/uL (0.028-0.122) H 01/04/20 21:13 Absolute Neuts (auto) Not Reportable 01/06/20 16:30 Absolute Lymphs (auto) Not Reportable 01/06/20 16:30 Absolute Monos (auto) Not Reportable 01/06/20 16:30 Absolute Eos (auto) Not Reportable 01/06/20 16:30 Absolute Basos (auto) Not Reportable 01/06/20 16:30 Total Counted 100 01/06/20 16:30 Seg Neutrophils % Not Reportable 01/06/20 16:30 Seg Neuts % (Manual) 70 % (42-78) 01/06/20 16:30 Band Neutrophils % 1 % (3-5) L 01/04/20 21:13 Lymphocytes % (Manual) 17 % (13-45) 01/06/20 16:30 Monocytes % (Manual) 9 % (3-13) 01/06/20 16:30 Eosinophils % (Manual) 3 % (0-6) 01/06/20 16:30 Basophils % (Manual) 1 % (0-2) 01/06/20 16:30 Abs Neuts (Manual) 7.9 10^3/uL (1.7-8.2) 01/06/20 16:30 Abs Lymphs (Manual) 1.9 10^3/uL (0.5-4.7) 01/06/20 16:30 Abs Monocytes (Manual) 1.0 10^3/uL (0.1-1.4) 01/06/20 16:30 Absolute Eos (Manual) 0.3 10^3/uL (0.0-0.6) 01/06/20 16:30 Abs Basophils (Manual) 0.1 10^3/uL (0.0-0.2) 01/06/20 16:30 Nucleated RBCs 11 /100 WBC (0) 01/06/20 16:30 Toxic Granulation 1+ 01/04/20 21:13 Toxic Vacuolation PRESENT 01/04/20 21:13 Large Platelets PRESENT 01/04/20 21:13 Platelet Comment ADEQUATE 01/06/20 16:30 Polychromasia SLIGHT 01/06/20 16:30 Poikilocytosis 2+ 01/04/20 21:13 Anisocytosis 3+ 01/06/20 16:30 Macrocytosis 1+ 01/04/20 21:13 Sickle Cells SLIGHT 01/06/20 16:30 Target Cells 1+ 01/06/20 16:30 Tear Drop Cells SLIGHT 01/04/20 21:13 Ovalocytes 2+ 01/06/20 16:30 Retic Count (auto) 18.79 % (0.66-2.85) H 01/04/20 21:13 Sodium 136.4 mmol/L (137-145) L 01/06/20 05:22 Potassium 4.2 mmol/L (3.6-5.0) 01/06/20 05:22 Chloride 104 mmol/L (98-107) 01/06/20 05:22 Carbon Dioxide 27 mmol/L (22-30) 01/06/20 05:22 Anion Gap 5 (5-19) 01/06/20 05:22 BUN 6 mg/dL (7-20) L 01/06/20 05:22 Creatinine 0.61 mg/dL (0.52-1.25) 01/06/20 05:22 Est GFR ( Amer) > 60 (>60) 01/06/20 05:22 Est GFR (MDRD) Non-Af > 60 (>60) 01/06/20 05:22 Glucose 116 mg/dL (75-110) H 01/06/20 05:22 Calcium 8.4 mg/dL (8.4-10.2) 01/06/20 05:22 Magnesium 2.0 mg/dL (1.6-2.3) 01/06/20 05:22 Total Bilirubin 2.5 mg/dL (0.2-1.3) H 01/04/20 21:13 Direct Bilirubin 0.4 mg/dL (0.0-0.4) 01/04/20 21:13 Neonat Total Bilirubin Not Reportable 01/04/20 21:13 Neonat Direct Bilirubin Not Reportable 01/04/20 21:13 Neonat Indirect Bili Not Reportable 01/04/20 21:13 AST 35 U/L (17-59) 01/04/20 21:13 ALT 27 U/L (<50) 01/04/20 21:13 Alkaline Phosphatase 92 U/L (38-126) 01/04/20 21:13 Total Protein 8.9 g/dL (6.3-8.2) H 01/04/20 21:13 Albumin 5.2 g/dL (3.5-5.0) H 01/04/20 21:13 Urine Color YELLOW 01/04/20 21:42 Urine Appearance CLEAR 01/04/20 21:42 Urine pH 7.0 (5.0-9.0) 01/04/20 21:42 Ur Specific [place] 1.011 01/04/20 21:42 Urine Protein NEGATIVE mg/dL (NEGATIVE) 01/04/20 21:42 Urine Glucose (UA) NEGATIVE mg/dL (NEGATIVE) 01/04/20 21:42 Urine Ketones NEGATIVE mg/dL (NEGATIVE) 01/04/20 21:42 Urine Blood NEGATIVE (NEGATIVE) 01/04/20 21:42 Urine Nitrite NEGATIVE (NEGATIVE) 01/04/20 21:42 Urine Bilirubin NEGATIVE (NEGATIVE) 01/04/20 21:42 Urine Urobilinogen NEGATIVE mg/dL (<2.0) 01/04/20 21:42 Ur Leukocyte Esterase NEGATIVE (NEGATIVE) 01/04/20 21:42 Urine WBC (Auto) 0 /HPF 01/04/20 21:42 Urine Ascorbic Acid NEGATIVE (NEGATIVE) 01/04/20 21:42 Blood Type O POSITIVE 01/06/20 07:50 Antibody Screen NEGATIVE 01/06/20 07:50 Crossmatch See Detail 01/06/20 07:50 Impressions: Chest X-Ray 01/05/20 10:09 IMPRESSION: NO ACUTE RADIOGRAPHIC FINDING IN THE CHEST. Plan Plan of Treatment: Patient is discharged home in stable condition. He is advised to follow-up with his primary care provider within 1 week. Follow-up with Dr. Queen as scheduled. Drink plenty of fluids. Take medications as prescribed. Return to the emergency department, as needed, for concerning symptoms. Time Spent: Greater than 30 Minutes Stroke Is this a Stroke Patient?: No Acute Heart Failure Is this a Heart Failure Patient?: No
== END 2020-01-08 11:35 | disposition home or self-care (01) | DRG 812 ==
LOC: ER 19:20 → EH 01-05 01:36 → 5 01-05 03:04
PROVIDERS: ADMIT Emergency Medicine; ATTEND Registered Nurse
PROC: 30233N1 Transfusion of Nonautologous Red Blood Cells into Peripheral Vein, Percutaneous Approach (ICD-10-PCS; principal; 2020-01-06)
DX: D57.00 Hb-SS disease with crisis, unspecified (principal); D72.829 Elevated white blood cell count, unspecified; D47.3 Essential (hemorrhagic) thrombocythemia; Z90.81 Acquired absence of spleen; Z82.49 Family history of ischemic heart disease and other diseases of the circulatory system; Z83.3 Family history of diabetes mellitus
CPT/HCPCS: 36415; 36430; 71046; 80048; 80053; 81001; 83735; 85025; 85027; 85045; 86850; 86900; 86901; 86902; 86920; 86922; 93005; 93010; 96361; 96374; 96375; 96376; 99285; J1170; J2405; J2550; J7030; J7121; P9016

== ENCOUNTER 2020-02-22 00:18 | Inpatient (IN) | payer MEDICAID ==
[2020-02-22] MEDS ORDERED: HYDROMORPHONE HCL INJ/PF 2 MG/ML AMPULE IV ONE ×2 (04:12→05:40)
[2020-02-22] MEDS ORDERED: RINGERS SOLUTION,LACTATED 1,000 ML IV ONE (04:12)
[2020-02-22] MEDS ORDERED: ONDANSETRON HCL INJ/PF 4 MG/2 ML SDV IV ONE (04:13)
[2020-02-22 04:21] LABS: ABSOLUTE RETICS # 0.239 10^6/uL (0.028-0.122); HEMATOCRIT 23.1 % (37.9-51.0); HEMOGLOBIN 8.5 g/dL (13.5-17.0); MEAN CORPUSCULAR HEMOGLOBIN 38.4 pg (27.0-33.4); MEAN CORPUSCULAR HGB CONC 36.9 g/dL (32.0-36.0); MEAN CORPUSCULAR VOLUME 104 fl (80-97); PLATELET COUNT 498 10^3/uL (150-450); RED BLOOD COUNT 2.22 10^6/uL (4.35-5.55); RED CELL DISTRIBUTION WIDTH 24.2 % (11.5-14.0); WHITE BLOOD COUNT 15.1 10^3/uL (4.0-10.5)
[2020-02-22 04:37] LABS: ALBUMIN 4.5 g/dL (3.5-5.0); ALKALINE PHOSPHATASE 80 U/L (38-126); ANION GAP 8 (5-19); ASPARTATE AMINO TRANSFERASE 36 U/L (17-59); BILIRUBIN,TOTAL 2.2 mg/dL (0.2-1.3); BLOOD UREA NITROGEN 9 mg/dL (7-20); CALCIUM 9.7 mg/dL (8.4-10.2); CARBON DIOXIDE 26 mmol/L (22-30); CHLORIDE 104 mmol/L (98-107); GLUCOSE 93 mg/dL (75-110); TOTAL PROTEIN 7.8 g/dL (6.3-8.2)
[2020-02-22 04:42] LABS: ABSOLUTE MONOCYTES # (MANUAL) 1.5 10^3/uL (0.1-1.4); BASOPHILS % (MANUAL) 0 % (0-2); EOSINOPHILS % (MANUAL) 2 % (0-6); LYMPHOCYTES % (MANUAL) 13 % (13-45); MONOCYTES % (MANUAL) 10 % (3-13); NUCLEATED RED BLOOD CELLS 13 /100 WBC (0); SEGMENTED NEUTROPHILS % (MAN) 75 % (42-78); TOTAL CELLS COUNTED 100
[2020-02-22 04:45] LABS: POLYCHROMASIA SLIGHT
[2020-02-22 04:46] LABS: ANISOCYTOSIS 3+; PLATELET CLUMPS N; PLATELET COMMENT INCREASED; POIKILOCYTOSIS 1+; SICKLE RED CELLS 1+; TARGET CELLS SLIGHT
--- NOTE | 2020-02-22 05:11 | ER Document Report ---
ED General - General Chief Complaint: Sickle Cell Crisis Stated Complaint: SICKLE CELL CRISIS R HIP PAIN Primary Care Provider: KENY QUEEN MD [Primary Care Provider] - Follow up as needed Notes: 24-year-old male history of sickle cell SS disease presents with 1 day of gradual onset severe constant pain in right hip without associated symptoms similar to prior sickle cell pain crises. Patient says that his crises are usually precipitated by changes in weather. Patient denies any trauma, prior hip surgery, fever, chest pain, shortness of breath, back pain, weakness or numbness, pain elsewhere, recent illness TRAVEL OUTSIDE OF THE [place] IN LAST 30 DAYS: No - Related Data Allergies/Adverse Reactions: nickel Allergy (Verified 01/04/20 21:38) diphenhydramine [From Benadryl] Adverse Reaction (Verified 08/03/19 04:33) VOMITING Home Medications: hydroxyrea, folic acid Past Medical History - General Information source: Patient, [facility] Records - Social History Smoking Status: Never Smoker Frequency of alcohol use: None Drug Abuse: None Family History: Reviewed & Not Pertinent Patient has homicidal ideation: No - Past Medical History Cardiac Medical History: Denies: Hx Coronary Artery Disease, Hx Hypercholesterolemia, Hx Hypertension Pulmonary Medical History: Denies: Hx Asthma, Hx COPD Neurological Medical History: Denies: Hx Seizures Endocrine Medical History: Denies: Hx Diabetes Mellitus Type 1, Hx Hype rthyroidism, Hx Hypothyroidism Renal/ Medical History: Denies: Hx Peritoneal Dialysis GI Medical History: Denies: Hx Cirrhosis, Hx Crohn's Disease, Hx Gastroesophageal Reflux Disease, Hx Hepatitis, Hx Ulcerative Colitis Musculoskeletal Medical History: Denies Hx Arthritis, Denies Hx Fibromyalgia, Denies Hx Gout Skin Medical History: Denies Hx Eczema, Denies Hx Psoriasis Psychiatric Medical History: Denies: Hx Depression - Seeking treatment for possible depression Infectious Medical History: Denies: Hx Hepatitis Past Surgical History: Reports: Hx Abdominal Surgery - partial spleenectomy, Other - Partial splenectomy. - Immunizations Immunizations up to date: Yes Hx Diphtheria, Pertussis, Tetanus Vaccination: Yes Review of Systems - Review of Systems Notes: REVIEW OF SYSTEMS: CONSTITUTIONAL : Denies fever, chills, or sweats. EENT: Denies recent cold/sinus symptoms, denies throat pain CARDIOVASCULAR: Denies chest pain, JOHNNIE RESPIRATORY: Denies cough, denies shortness of breath. GASTROINTESTINAL: Denies abdominal pain, +nausea -vomiting. GENITOURINARY: Denies difficulty urinating, painful urination. MUSCULOSKELETAL: Denies neck pain, back pain. SKIN: Denies rash or skin lesions. HEMATOLOGIC : Denies easy bruising or bleeding. LYMPHATIC: Denies swollen, enlarged glands. NEUROLOGICAL: Denies headache, denies change in gait. PSYCHIATRIC: Denies anxiety or stress or depression. Physical Exam - Vital signs Vitals: Temp Pulse Resp BP Pulse Ox 99.2 F 87 20 109/57 L 98 02/22/20 00:24 02/22/20 00:24 02/22/20 00:24 02/22/20 00:24 02/22/20 00:24 - Notes Notes: PHYSICAL EXAMINATION: GENERAL: Young well-nourished adult male laying in exam stretcher in severe pain HEAD: Atraumatic, normocephalic. EYES: Pupils equal round and appropriate constriction, sclera anicteric, conjunctiva are normal. ENT: nares patent, moist mucous membranes. NECK: Normal range of motion, supple without lymphadenopathy LUNGS: Breath sounds clear to auscultation bilaterally and equal. No wheezes rales or rhonchi. HEART: Regular rate and rhythm without murmurs ABDOMEN: Soft, nontender, no guarding, no masses, no CVAT EXTREMITIES: Normal range of motion, no pitting or edema. No cyanosis. NEUROLOGICAL: Awake, alert, conversing appropriately, moves all extremities spontaneously. PSYCH: Normal mood, normal affect. SKIN: Warm, Dry, normal turgor, no rashes or lesions noted. Course - Re-evaluation Re-evalutation: 02/22/20 06:12 No focal findings on hands, no signs of septic arthritis, patient's symptoms consistent with usual crisis. I obtained labs and gave dose of analgesia and fluids, but patient still in severe pain. Given patient's lab results with significant reticulocyte count, elevated LDH, and patient's persistent severe pain, I presented patient to hospitalist as it is unlikely that patient symptoms will be sufficiently improved to be discharged from the ED. Patient was evaluated by Dr. Sy and accepted for an observation floor bed. - Vital Signs Vital signs: Temp Pulse Resp BP Pulse Ox 98.3 F 87 16 137/65 H 98 02/22/20 04:30 02/22/20 00:24 02/22/20 05:01 02/22/20 05:01 02/22/20 05:01 - Laboratory Result Diagrams: 02/22/20 04:05 02/22/20 04:05 Laboratory results interpreted by me: 02/22/20 02/22/20 04:05 04:05 WBC 15.1 H RBC 2.22 L Hgb 8.5 L Hct 23.1 L MCV 104 H MCH 38.4 H MCHC 36.9 H RDW 24.2 H Plt Count 498 H Reticulocyte # 0.239 H Abs Neuts (Manual) 11.3 H Abs Monocytes (Manual) 1.5 H Retic Count (auto) 10.80 H Total Bilirubin 2.2 H Lactate Dehydrogenase 327 H Discharge - Discharge Clinical Impression: Sickle cell crisis, Thrombocytosis Leukocytosis, unspecified Qualifiers: Leukocytosis type: unspecified Qualified Code(s): D72.829 - Elevated white blood cell count, unspecified Disposition: ADMITTED OBSERVATION Admitting Provider: [facility] Unit Admitted: Medical Floor Referrals: KENY QUEEN MD [Primary Care Provider] - Follow up as needed
[2020-02-22] MEDS: RINGERS SOLUTION,LACTATED 1,000 ML IV PRN ×3 (05:52→16:19)
[2020-02-22] MEDS ORDERED: RINGERS SOLUTION,LACTATED 1,000 ML IV PRN (06:06)
[2020-02-22] MEDS ORDERED: ONDANSETRON HCL INJ/PF 4 MG/2 ML SDV IV PRN (06:06)
--- NOTE | 2020-02-22 06:43 | PDOC H&P ---
History of Present Illness Admission Date/PCP: KENY QUEEN MD Patient complains of: Right hip pain History of Present Illness: VIBHA ROWLAND is a 24 year old male with a history of right hip pain which started about 12 hours prior to presentation. Patient states that initially he was trying to manage his pain with his home medications became unbearable so presented to the ER. Pain is described as aching, 9/10 intensity with no clear aggravating or relieving factors. He denies any fever, chills, chest pain, shortness of breath, headache, change in his vision, weakness of extremities, change in the color of his urine. Also denies any cough, runny nose, congestion, or skin rash. Past Medical History Cardiac Medical History: Denies: Coronary Artery Disease, Hyperlipidema, Hypertension Pulmonary Medical History: Denies: Asthma, Chronic Obstructive Pulmonary Disease (COPD) Neurological Medical History: Denies: Seizures Endocrine Medical History: Denies: Diabetes Mellitus Type 1, Hyperthyroidism, Hypothyroidism GI Medical History: Denies: Cirrhosis, Crohn's Disease, Gastroesophageal Reflux Disease, Hepatitis, Ulcerative Colitis Musculoskeltal Medical History: Denies: Arthritis, Fibromyalgia, Gout Skin Medical History: Denies: Eczema, Psoriasis Psychiatric Medical History: Denies: Depression - Seeking treatment for possible depression Hematology: Reports: Anemia - Sickle cell, Sickle Cell Disease Denies: Bleeding Tendencies Past Surgical History Past Surgical History: 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 Social History Information Source: Patient Lives with: Family Smoking Status: Never Smoker Frequency of Alcohol Use: Rare Hx Recreational Drug Use: No Drugs: None Hx Prescription Drug Abuse: No - Advance Directive Resuscitation Status: Full Code Family History Family History: Reviewed & Not Pertinent Parental Family History Reviewed: Yes Children Family History Reviewed: Yes Sibling(s) Family History Reviewed.: Yes Medication/Allergy Home Medications: Folic Acid [Folvite 1 mg Tablet] 1 mg PO DAILY 12/12/18 Hydroxyurea [Hydrea 500 mg Capsule] 1,000 mg PO DAILY 12/12/18 Allergies/Adverse Reactions: nickel Allergy (Verified 01/04/20 21:38) diphenhydramine [From Benadryl] Adverse Reaction (Verified 08/03/19 04:33) VOMITING Review of Systems Constitutional: PRESENT: as per HPI Eyes: ABSENT: visual disturbances Ears: ABSENT: hearing changes Nose, Mouth, and Throat: ABSENT: as per HPI, headache(s), mouth pain, sore throat, vertigo, other Cardiovascular: ABSENT: chest pain, dyspnea on exertion, edema, orthropnea, palpitations Respiratory: ABSENT: cough, hemoptysis Gastrointestinal: ABSENT: abdominal pain, constipation, diarrhea, hematemesis, hematochezia, nausea, vomiting Genitourinary: ABSENT: dysuria, hematuria Musculoskeletal: PRESENT: as per HPI Integumentary: ABSENT: rash, wounds Neurological: ABSENT: abnormal gait, abnormal speech, confusion, dizziness, focal weakness, syncope Psychiatric: ABSENT: anxiety, depression, homidical ideation, suicidal ideation Endocrine: ABSENT: cold intolerance, heat intolerance, polydipsia, polyuria Physical Exam Vital Signs: Temp Pulse Resp BP Pulse Ox 98.3 F 87 16 147/73 H 100 02/22/20 04:30 02/22/20 00:24 02/22/20 06:01 02/22/20 06:00 02/22/20 06:01 Intake & Output 02/20/20 02/21/20 02/22/20 06:59 06:59 06:59 Intake Total 1000 Balance 1000 Weight 66 kg Additional comments: GENERAL APPEARANCE: Patient appears in discomfort due to pain HEENT: Normocephalic and atraumatic. No scleral icterus. Moist oral mucosa NECK: Supple. TNo lymphadenopathy or tenderness. No JVD CHEST: Symmetric. Nontender to palpation. LUNGS: Breath sounds are equal and clear bilaterally. No wheezes, rhonchi, or rales. HEART: Regular rate and rhythm with normal S1 and S2. No murmurs, gallops, or rubs. ABDOMEN: Soft, flat, normoactive bowel sounds. No mass, tenderness, guarding, or rebound. No organomegaly detected. No CVA tenderness or flank mass.. EXTREMITIES: No cyanosis, clubbing, or edema. MUSCULOSKELETAL: No deformity, atrophy or swelling noted PSYCHIATRIC: The patient is awake, alert, and oriented x3. Recent and remote memory is intact. Appropriate mood and affect. SKIN: Warm, dry, and well perfused. No lesions or rashes are noted. NEUROLOGIC: No focal sensory or motor deficits are noted. Results Laboratory Results: 02/22/20 04:05 02/22/20 04:05 02/22/20 02/22/20 04:05 04:05 WBC 15.1 H RBC 2.22 L Hgb 8.5 L Hct 23.1 L MCV 104 H MCH 38.4 H MCHC 36.9 H RDW 24.2 H Plt Count 498 H Seg Neutrophils % Not Reportable Retic Count (auto) 10.80 H Sodium 138.4 Potassium 4.0 Chloride 104 Carbon Dioxide 26 Anion Gap 8 BUN 9 Creatinine 0.65 Est GFR ( Amer) > 60 Glucose 93 Calcium 9.7 Total Bilirubin 2.2 H AST 36 Alkaline Phosphatase 80 Total Protein 7.8 Albumin 4.5 Assessment and Plan - Diagnosis (1) Sickle cell pain crisis Is this a current diagnosis for this admission?: Yes Plan: Presents with right hip pain Elevated LDH, elevated reticulocyte count and bilirubin Started him on IV hydration with LR Manage pain with Dilaudid (2) Leukocytosis, unspecified Qualifiers: Leukocytosis type: unspecified Qualified Code(s): D72.829 - Elevated white blood cell count, unspecified Is this a current diagnosis for this admission?: Yes Plan: Patient has no sign of infection at this point Likely due to hemoconcentration from dehydration We will obtain blood culture Follow-up CBC (3) Thrombocytosis Is this a current diagnosis for this admission?: Yes Plan: Likely due to hemoconcentration, continue to monitor CBC (5) Sickle cell anemia Qualifiers: Sickle-cell associated disorders: with unspecified crisis Qualified Code(s): D57.00 - Hb-SS disease with crisis, unspecified; D57.0 - Hb-SS disease with crisis Is this a current diagnosis for this admission?: Yes Plan: H&H on this presentation 8.5 and 23 which is slightly above his baseline Likely due to hemoconcentration other cell lines also have increased Has some signs of hemolysis with elevated bilirubin reticulocyte count and LDH Continue to monitor H&H pain transfuse if hemoglobin drops below 7 - Time Time Spent with patient: 35 or more minutes Total Critical Time (Minutes): 40 Medications reviewed and adjusted accordingly: Yes Anticipated Discharge Disposition: Home, Self Care Anticipated Discharge Timeframe: within 48 hours - Inpatient Certification Based on my medical assessment, after consideration of the patient's comorbidities, presenting symptoms, or acuity I expect that the services needed warrant INPATIENT care.: Yes I certify that my determination is in accordance with my understanding of Medicare's requirements for reasonable and necessary INPATIENT services [42 CFR 412.3e].: Yes Medical Necessity: Failure to Improve With Outpatient Therapy, Need For IV Fluids, Need for Pain Control Post Hospital Care: D/C or Transfer Summary
[2020-02-22] MEDS: HYDROMORPHONE HCL INJ/PF 2 MG/ML AMPULE IV PRN ×4 (08:15→20:44)
[2020-02-22] MEDS: FOLIC ACID 1 MG TABLET PO SCH (11:55)
[2020-02-22] MEDS: FAMOTIDINE 20 MG TABLET PO SCH ×2 (11:55→21:52)
[2020-02-22] MEDS: HYDROXYUREA 500 MG CAPSULE PO SCH (11:57)
[2020-02-22] MEDS ORDERED: INFLUENZA QUAD (6MOS+) 2020-21 VAC 0.5 ML SYR IM ONE (12:30)
[2020-02-22] MEDS: ENOXAPARIN SODIUM INJ 40 MG/0.4 ML DISP.SYRIN SUBCUT SCH (13:09)
--- NOTE | 2020-02-22 15:52 | PDOC PROGRESS REPORT ---
Subjective Progress Note for:: 02/22/20 Subjective:: The patient is a 24-year-old male with a past medical history of sickle cell disease who was admitted 02/22/2020 with right hip pain secondary to sickle cell crisis. Patient was seen on morning rounds. He is found resting in bed on supplemental oxygen by nasal cannula 2 L/min; he is maintaining his oxygen saturations while on room air. He does confirm history of acute chest syndrome but denies dyspnea or chest discomfort at this time. He states that his pain is well controlled with the current analgesic regiment. He otherwise denies fever, chills, chest pain, palpitations, dyspnea, abdominal pain, nausea vomiting and diarrhea. He has no questions or concerns at this time. No concerns per nursing. Reason For Visit: SICKLE CELL CRISIS Physical Exam Vital Signs: Temp Pulse Resp BP Pulse Ox 97.4 F 51 L 20 145/54 H 100 02/22/20 11:47 02/22/20 14:00 02/22/20 11:47 02/22/20 11:47 02/22/20 11:47 Intake & Output 02/21/20 02/22/20 02/23/20 06:59 06:59 06:59 Intake Total 1999 1000 Balance 1999 1000 Weight 66 kg General appearance: PRESENT: no acute distress, cooperative - pleasant, well-developed, well-nourished Head exam: PRESENT: atraumatic, normocephalic Eye exam: PRESENT: conjunctiva pink, EOMI, PERRLA. ABSENT: scleral icterus Mouth exam: PRESENT: moist, tongue midline Respiratory exam: PRESENT: clear to auscultation oxana, symmetrical, unlabored. ABSENT: rales, rhonchi, wheezes Cardiovascular exam: PRESENT: RRR. ABSENT: diastolic murmur, rubs, systolic murmur Pulses: PRESENT: normal dorsalis pedis pul Vascular exam: PRESENT: normal capillary refill Extremities exam: PRESENT: full ROM, tenderness - right hip. ABSENT: calf tenderness, clubbing, pedal edema Neurological exam: PRESENT: alert, awake, oriented to person, oriented to place, oriented to time, oriented to situation, CN II-XII grossly intact. ABSENT: motor sensory deficit Psychiatric exam: PRESENT: appropriate affect, normal mood. ABSENT: homicidal ideation, suicidal ideation Skin exam: PRESENT: dry, intact, warm. ABSENT: cyanosis, rash Results Laboratory Results: 02/22/20 04:05 02/22/20 04:05 02/22/20 02/22/20 04:05 04:05 WBC 15.1 H RBC 2.22 L Hgb 8.5 L Hct 23.1 L MCV 104 H MCH 38.4 H MCHC 36.9 H RDW 24.2 H Plt Count 498 H Seg Neutrophils % Not Reportable Retic Count (auto) 10.80 H Sodium 138.4 Potassium 4.0 Chloride 104 Carbon Dioxide 26 Anion Gap 8 BUN 9 Creatinine 0.65 Est GFR ( Amer) > 60 Glucose 93 Calcium 9.7 Total Bilirubin 2.2 H AST 36 Alkaline Phosphatase 80 Total Protein 7.8 Albumin 4.5 Assessment and Plan - Diagnosis (1) Sickle cell pain crisis Is this a current diagnosis for this admission?: Yes Plan: Presents with right hip pain Elevated LDH, elevated reticulocyte count and bilirubin Started him on IV hydration with LR Manage pain with Dilaudid Continue home dose Folic acid and Hydroxyurea Nonpharmacological/supportive care. (2) Sickle cell anemia Qualifiers: Sickle-cell associated disorders: with unspecified crisis Qualified Code(s): D57.00 - Hb-SS disease with crisis, unspecified; D57.0 - Hb-SS disease with crisis Is this a current diagnosis for this admission?: Yes Plan: H&H on this presentation 8.5 and 23 which is slightly above his baseline Likely due to hemoconcentration other cell lines also have increased Has some signs of hemolysis with elevated bilirubin reticulocyte count and LDH Continue to monitor H&H pain transfuse if hemoglobin drops below 7 (3) Leukocytosis, unspecified Qualifiers: Leukocytosis type: unspecified Qualified Code(s): D72.829 - Elevated white blood cell count, unspecified Is this a current diagnosis for this admission?: Yes Plan: Tmax 99.2/24 hrs Patient has no sign of infection at this point Likely due to hemoconcentration from dehydration Blood cultures are pending. No indications for antibiotic therapy at this time. Follow-up CBC (4) Thrombocytosis Is this a current diagnosis for this admission?: Yes Plan: Likely due to hemoconcentration Receiving IV fluids. Continue to monitor CBC (5) Dehydration Is this a current diagnosis for this admission?: Yes Plan: Secondary to poor p.o. intake; patient states decreased r/t pain. Denies N/V/D Encourage po fluids Continue IVF - Time Time Spent with patient: 25-34 minutes Medications reviewed and adjusted accordingly: Yes Anticipated Discharge Disposition: Home, Self Care Anticipated Discharge Timeframe: undetermined
[2020-02-23] MEDS: RINGERS SOLUTION,LACTATED 1,000 ML IV PRN ×2 (00:04→10:22)
[2020-02-23] MEDS: HYDROMORPHONE HCL INJ/PF 2 MG/ML AMPULE IV PRN ×4 (02:54→20:34)
[2020-02-23 06:36] LABS: HEMATOCRIT 21.9 % (37.9-51.0); MEAN CORPUSCULAR HEMOGLOBIN 35.9 pg (27.0-33.4); MEAN CORPUSCULAR HGB CONC 35.3 g/dL (32.0-36.0); MEAN CORPUSCULAR VOLUME 102 fl (80-97); PLATELET COUNT 442 10^3/uL (150-450); RED BLOOD COUNT 2.16 10^6/uL (4.35-5.55); RED CELL DISTRIBUTION WIDTH 24.4 % (11.5-14.0); WHITE BLOOD COUNT 12.6 10^3/uL (4.0-10.5)
[2020-02-23 06:48] LABS: ANION GAP 8 (5-19); BLOOD UREA NITROGEN 5 mg/dL (7-20); CALCIUM 9.1 mg/dL (8.4-10.2); CARBON DIOXIDE 27 mmol/L (22-30); CHLORIDE 104 mmol/L (98-107); GLUCOSE 98 mg/dL (75-110); POTASSIUM 3.9 mmol/L (3.6-5.0)
[2020-02-23 07:27] LABS: ABSOLUTE LYMPHOCYTES# (MANUAL) 3.4 10^3/uL (0.5-4.7); ABSOLUTE MONOCYTES # (MANUAL) 0.1 10^3/uL (0.1-1.4); BASOPHILS % (MANUAL) 1 % (0-2); EOSINOPHILS % (MANUAL) 2 % (0-6); LYMPHOCYTES % (MANUAL) 25 % (13-45); METAMYELOCYTES % (MANUAL) 1 % (0-1); MONOCYTES % (MANUAL) 1 % (3-13); NUCLEATED RED BLOOD CELLS 3 /100 WBC (0); SEGMENTED NEUTROPHILS % (MAN) 68 % (42-78); TOTAL CELLS COUNTED 100
[2020-02-23 07:31] LABS: ANISOCYTOSIS 3+; OVALOCYTES 2+; POIKILOCYTOSIS 2+; POLYCHROMASIA 2+; SICKLE RED CELLS 1+; TARGET CELLS SLIGHT
[2020-02-23 07:32] LABS: STOMATOCYTES 1+; TEAR DROP CELLS 2+
[2020-02-23 07:35] LABS: HEMOGLOBIN 7.7 g/dL (13.5-17.0)
[2020-02-23 07:57] LABS: PLATELET COMMENT ADEQUATE
[2020-02-23] MEDS: HYDROXYUREA 500 MG CAPSULE PO SCH (10:21)
[2020-02-23] MEDS: FOLIC ACID 1 MG TABLET PO SCH (10:21)
[2020-02-23] MEDS: ENOXAPARIN SODIUM INJ 40 MG/0.4 ML DISP.SYRIN SUBCUT SCH (10:21)
[2020-02-23] MEDS: FAMOTIDINE 20 MG TABLET PO SCH ×2 (10:21→21:28)
--- NOTE | 2020-02-23 12:21 | PDOC PROGRESS REPORT ---
Subjective Progress Note for:: 02/23/20 Subjective:: The patient is a 24-year-old male with a past medical history of sickle cell disease who was admitted 02/22/2020 with right hip pain secondary to sickle cell crisis. Patient was seen on morning rounds. He is found resting in bed on supplemental oxygen by nasal cannula 2 L/min; he is maintaining his oxygen saturations while on room air. He does confirm history of acute chest syndrome but denies dyspnea or chest discomfort at this time. He states that his pain is well controlled with the current analgesic regiment. Does feel slightly better today. Nausea has resolved. He otherwise denies fever, chills, chest pain, palpitations, dyspnea, abdominal pain, nausea vomiting and diarrhea. He has no questions or concerns at this time. No concerns per nursing. Reason For Visit: SICKLE CELL CRISIS Physical Exam Vital Signs: Temp Pulse Resp BP Pulse Ox 98.3 F 78 18 117/52 L 100 02/23/20 08:16 02/23/20 07:53 02/23/20 07:53 02/23/20 07:53 02/23/20 07:53 Intake & Output 02/22/20 02/23/20 02/24/20 06:59 06:59 06:59 Intake Total 1999 3779 940 Balance 1999 3779 940 Weight 66 kg 85.8 kg General appearance: PRESENT: no acute distress, cooperative, well-developed, well-nourished Head exam: PRESENT: atraumatic, normocephalic Eye exam: PRESENT: conjunctiva pink, EOMI, PERRLA. ABSENT: scleral icterus Mouth exam: PRESENT: moist, tongue midline Respiratory exam: PRESENT: clear to auscultation oxana, symmetrical, unlabored. ABSENT: rales, rhonchi, wheezes Cardiovascular exam: PRESENT: RRR. ABSENT: diastolic murmur, rubs, systolic murmur Vascular exam: PRESENT: normal capillary refill Extremities exam: PRESENT: full ROM. ABSENT: calf tenderness, clubbing, pedal edema Musculoskeletal exam: PRESENT: ambulatory Neurological exam: PRESENT: alert, awake, oriented to person, oriented to place, oriented to time, oriented to situation, CN II-XII grossly intact. ABSENT: motor sensory deficit Psychiatric exam: PRESENT: appropriate affect, normal mood. ABSENT: homicidal ideation, suicidal ideation Skin exam: PRESENT: dry, intact, warm. ABSENT: cyanosis, rash Results Laboratory Results: 02/23/20 06:11 02/23/20 06:11 02/23/20 02/23/20 06:11 06:11 WBC 12.6 H RBC 2.16 L Hgb 7.7 L Hct 21.9 L MCV 102 H MCH 35.9 H MCHC 35.3 RDW 24.4 H Plt Count 442 Seg Neutrophils % Not Reportable Sodium 139.1 Potassium 3.9 Chloride 104 Carbon Dioxide 27 Anion Gap 8 BUN 5 L Creatinine 0.59 Est GFR ( Amer) > 60 Glucose 98 Calcium 9.1 Assessment and Plan - Diagnosis (1) Sickle cell pain crisis Is this a current diagnosis for this admission?: Yes Plan: Presents with right hip pain Elevated LDH, elevated reticulocyte count and bilirubin Started him on IV hydration with LR Manage pain with Dilaudid Continue home dose Folic acid and Hydroxyurea Nonpharmacological/supportive care. (2) Sickle cell anemia Qualifiers: Sickle-cell associated disorders: with unspecified crisis Qualified Code(s): D57.00 - Hb-SS disease with crisis, unspecified; D57.0 - Hb-SS disease with crisis Is this a current diagnosis for this admission?: Yes Plan: Hgb 8.5-> 7.7 Likely due to hemoconcentration other cell lines also have increased Has some signs of hemolysis with elevated bilirubin reticulocyte count and LDH Continue to monitor H&H pain transfuse if hemoglobin drops below 7 (3) Leukocytosis, unspecified Qualifiers: Leukocytosis type: unspecified Qualified Code(s): D72.829 - Elevated white blood cell count, unspecified Is this a current diagnosis for this admission?: Yes Plan: WBC trending down; 15.1-> 12.6 Afebrile x 24 hrs, Tmax 99.2/48 hrs Patient has no sign of infection at this point Likely due to hemoconcentration from dehydration Blood cultures are negative at 24 hours. No indications for antibiotic therapy at this time. Follow-up CBC (4) Thrombocytosis Is this a current diagnosis for this admission?: Yes Plan: Resolved; PLT 498-> 442 Secondary to hemoconcentration Receiving IV fluids. Continue to monitor CBC (5) Dehydration Is this a current diagnosis for this admission?: Yes Plan: Resolved Secondary to poor p.o. intake; patient states decreased r/t pain. Denies N/V/D Encourage po fluids Continue IVF - Time Time Spent with patient: 25-34 minutes Medications reviewed and adjusted accordingly: Yes Anticipated Discharge Disposition: Home, Self Care Anticipated Discharge Timeframe: within 48 hours
[2020-02-23] MEDS ORDERED: ACETAMINOPHEN 325 MG TABLET ONE (19:57)
[2020-02-23] MEDS ORDERED: ACETAMINOPHEN 325 MG TABLET PO PRN (20:23)
[2020-02-24] MEDS: RINGERS SOLUTION,LACTATED 1,000 ML IV PRN ×2 (01:17→09:35)
[2020-02-24 06:18] LABS: ABSOLUTE RETICS # 0.164 10^6/uL (0.028-0.122); MEAN CORPUSCULAR HEMOGLOBIN 37.1 pg (27.0-33.4); MEAN CORPUSCULAR HGB CONC 36.5 g/dL (32.0-36.0); MEAN CORPUSCULAR VOLUME 102 fl (80-97); PLATELET COUNT 374 10^3/uL (150-450); RED BLOOD COUNT 1.86 10^6/uL (4.35-5.55); RED CELL DISTRIBUTION WIDTH 23.8 % (11.5-14.0)
[2020-02-24] MEDS: HYDROMORPHONE HCL INJ/PF 2 MG/ML AMPULE IV PRN ×4 (07:32→23:53)
[2020-02-24 08:08] LABS: HEMOGLOBIN 6.9 g/dL (13.5-17.0)
[2020-02-24 08:09] LABS: WHITE BLOOD COUNT 10.9 10^3/uL (4.0-10.5)
[2020-02-24] MEDS ORDERED: NORMAL SALINE 250 ML IV PRN ×2 (08:37)
[2020-02-24] MEDS: FAMOTIDINE 20 MG TABLET PO SCH ×2 (09:34→21:14)
[2020-02-24] MEDS: FOLIC ACID 1 MG TABLET PO SCH (09:34)
[2020-02-24] MEDS: HYDROXYUREA 500 MG CAPSULE PO SCH (09:35)
[2020-02-24] MEDS ORDERED: BUTALB/ACETAMINOPHEN/CAFFEINE 1 TAB EACH PO ONE (10:30)
[2020-02-24] MEDS: ENOXAPARIN SODIUM INJ 40 MG/0.4 ML DISP.SYRIN SUBCUT SCH (11:09)
--- NOTE | 2020-02-24 11:41 | PDOC PROGRESS REPORT ---
Subjective Progress Note for:: 02/24/20 Subjective:: The patient is a 24-year-old male with a past medical history of sickle cell disease who was admitted 02/22/2020 with right hip pain secondary to sickle cell crisis. Patient was seen on morning rounds. He is found resting in bed on supplemental oxygen by nasal cannula 2 L/min; he is maintaining his oxygen saturations while on room air. He states that his pain is well controlled with the current analgesic regiment. Reports his hip pain is improved. Does complain of a headache w/ some dizziness/vertigo and associated mild nausea. He otherwise denies fever, chills, chest pain, palpitations, dyspnea, abdominal pain, vomiting and diarrhea. He has no questions or concerns at this time. No concerns per nursing. Reason For Visit: SICKLE CELL CRISIS Physical Exam Vital Signs: Temp Pulse Resp BP Pulse Ox 98.2 F 95 18 122/48 L 96 02/24/20 09:05 02/24/20 07:15 02/24/20 07:15 02/24/20 07:15 02/24/20 07:15 Intake & Output 02/23/20 02/24/20 02/25/20 06:59 06:59 06:59 Intake Total 3779 2670 1000 Balance 3779 2670 1000 Weight 85.8 kg 65.6 kg General appearance: PRESENT: no acute distress, cooperative, thin, well- developed, well-nourished Head exam: PRESENT: atraumatic, normocephalic Eye exam: PRESENT: conjunctiva pink, EOMI, PERRLA. ABSENT: scleral icterus Mouth exam: PRESENT: moist, tongue midline Respiratory exam: PRESENT: clear to auscultation oxana, symmetrical, unlabored. ABSENT: rales, rhonchi, wheezes Cardiovascular exam: PRESENT: RRR. ABSENT: diastolic murmur, rubs, systolic murmur Vascular exam: PRESENT: normal capillary refill Extremities exam: PRESENT: full ROM. ABSENT: calf tenderness, clubbing, pedal edema Musculoskeletal exam: PRESENT: ambulatory Neurological exam: PRESENT: alert, awake, oriented to person, oriented to place, oriented to time, oriented to situation, CN II-XII grossly intact. ABSENT: motor sensory deficit Psychiatric exam: PRESENT: appropriate affect, normal mood. ABSENT: homicidal ideation, suicidal ideation Skin exam: PRESENT: dry, intact, warm. ABSENT: cyanosis, rash Results Laboratory Results: 02/24/20 05:09 02/23/20 06:11 02/24/20 05:09 WBC 10.9 H RBC 1.86 L Hgb 6.9 L Hct 19.0 L MCV 102 H MCH 37.1 H MCHC 36.5 H RDW 23.8 H Plt Count 374 Retic Count (auto) 8.80 H Assessment and Plan - Diagnosis (1) Sickle cell pain crisis Is this a current diagnosis for this admission?: Yes Plan: Pain is slightly improved today. Presents with right hip pain Elevated LDH, elevated reticulocyte count and bilirubin Retirc count down slightly; 10.8-> 8.8 Continue IV hydration with LR Manage pain with Dilaudid Continue home dose Folic acid and Hydroxyurea Nonpharmacological/supportive care. (2) Sickle cell anemia Qualifiers: Sickle-cell associated disorders: with unspecified crisis Qualified Code(s): D57.00 - Hb-SS disease with crisis, unspecified; D57.0 - Hb-SS disease with crisis Is this a current diagnosis for this admission?: Yes Plan: Hgb 8.5-> 7.7-> 6.9 Likely due to hemoconcentration other cell lines also have increased Has some signs of hemolysis with elevated bilirubin reticulocyte count and LDH C Will plan on 1 unit PRBC today Follow CBC (3) Headache Qualifiers: Headache type: unspecified Is this a current diagnosis for this admission?: Yes Plan: Possibly rebound headache r/t narcotic medications. Will trial Fioricet. Tylenol as needed. Nonpharmacological interventions. (4) Dizziness Is this a current diagnosis for this admission?: Yes Plan: Associated w/ headache. Possible replaced to narcotic medications. Meclizine prn. (5) Thrombocytosis Is this a current diagnosis for this admission?: Yes Plan: Resolved; PLT 498-> 442 -> 374 Secondary to hemoconcentration Receiving IV fluids. Continue to monitor CBC (6) Leukocytosis, unspecified Qualifiers: Leukocytosis type: unspecified Qualified Code(s): D72.829 - Elevated white blood cell count, unspecified Is this a current diagnosis for this admission?: Yes Plan: WBC trending down; 15.1-> 12.6-> 10.9 Afebrile >48 hrs perfect yesterday Patient has no sign of infection at this point Likely due to hemoconcentration from dehydration Blood cultures are negative at 48 hours. No indications for antibiotic therapy at this time. Follow-up CBC (7) Dehydration Is this a current diagnosis for this admission?: Yes Plan: Resolved Secondary to poor p.o. intake; patient states decreased r/t pain. Denies N/V/D Encourage po fluids Continue IVF - Time Time Spent with patient: 35 or more minutes Medications reviewed and adjusted accordingly: Yes Anticipated Discharge Disposition: Home, Self Care Anticipated Discharge Timeframe: within 48 hours
[2020-02-24 16:56] LABS: HEMATOCRIT 23.4 % (37.9-51.0); HEMOGLOBIN 8.2 g/dL (13.5-17.0); MEAN CORPUSCULAR HEMOGLOBIN 34.4 pg (27.0-33.4); PLATELET COUNT 409 10^3/uL (150-450); RED BLOOD COUNT 2.38 10^6/uL (4.35-5.55); RED CELL DISTRIBUTION WIDTH 23.5 % (11.5-14.0); WHITE BLOOD COUNT 12.4 10^3/uL (4.0-10.5)
[2020-02-24 17:04] LABS: MEAN CORPUSCULAR VOLUME 98 fl (80-97)
[2020-02-24 17:24] LABS: ABSOLUTE LYMPHOCYTES# (MANUAL) 3.3 10^3/uL (0.5-4.7); ABSOLUTE MONOCYTES # (MANUAL) 1.6 10^3/uL (0.1-1.4); BASOPHILS % (MANUAL) 0 % (0-2); EOSINOPHILS % (MANUAL) 7 % (0-6); LYMPHOCYTES % (MANUAL) 27 % (13-45); MONOCYTES % (MANUAL) 13 % (3-13); NUCLEATED RED BLOOD CELLS 5 /100 WBC (0); SEGMENTED NEUTROPHILS % (MAN) 53 % (42-78); TOTAL CELLS COUNTED 100
[2020-02-24 17:25] LABS: ANISOCYTOSIS 3+; PLATELET COMMENT ADEQUATE; POLYCHROMASIA 1+; SICKLE RED CELLS 1+; TARGET CELLS 1+
[2020-02-24 17:26] LABS: POIKILOCYTOSIS 1+
[2020-02-25] MEDS: HYDROMORPHONE HCL INJ/PF 2 MG/ML AMPULE IV PRN (03:35)
[2020-02-25 05:55] LABS: HEMATOCRIT 23.5 % (37.9-51.0); HEMOGLOBIN 8.3 g/dL (13.5-17.0)
[2020-02-25 06:09] LABS: MEAN CORPUSCULAR HEMOGLOBIN 34.6 pg (27.0-33.4); MEAN CORPUSCULAR HGB CONC 35.4 g/dL (32.0-36.0); MEAN CORPUSCULAR VOLUME 98 fl (80-97); PLATELET COUNT 395 10^3/uL (150-450); RED CELL DISTRIBUTION WIDTH 22.9 % (11.5-14.0); WHITE BLOOD COUNT 11.1 10^3/uL (4.0-10.5)
[2020-02-25] MEDS: RINGERS SOLUTION,LACTATED 1,000 ML IV PRN ×3 (06:40→21:56)
[2020-02-25] MEDS: BUTALB/ACETAMINOPHEN/CAFFEINE 1 TAB EACH PO PRN (08:42)
--- NOTE | 2020-02-25 11:01 | PDOC PROGRESS REPORT ---
Subjective Date:: 02/25/20 Subjective:: The patient is a 24-year-old male with a past medical history of sickle cell disease who was admitted 02/22/2020 with right hip pain secondary to sickle cell crisis. Patient was seen on morning rounds. He is found resting in bed on room air. He states that his pain is well controlled with the current analgesic regiment. Reports his hip pain is improved. Does complain of a headache. No further dizziness/vertigo. Fatigued and generalized body aches today. He otherwise denies fever, chills, chest pain, palpitations, dyspnea, abdominal pain, nausea, vomiting and diarrhea. He has no questions or concerns at this time. No concerns per nursing. Reason For Visit: SICKLE CELL CRISIS Physical Exam Vital Signs: Temp Pulse Resp BP Pulse Ox 98.8 F 105 H 18 132/57 H 99 02/24/20 23:51 02/25/20 07:00 02/24/20 23:51 02/24/20 23:51 02/24/20 23:51 Intake & Output 02/24/20 02/25/20 02/26/20 06:59 06:59 06:59 Intake Total 2670 3800 Balance 2670 3800 Weight 65.6 kg 65.6 kg General appearance: PRESENT: no acute distress, cooperative, well-developed, well-nourished Head exam: PRESENT: atraumatic, normocephalic Eye exam: PRESENT: conjunctiva pink, EOMI, PERRLA. ABSENT: scleral icterus Mouth exam: PRESENT: moist, tongue midline Respiratory exam: PRESENT: clear to auscultation oxana, symmetrical, unlabored. ABSENT: rales, rhonchi, wheezes Cardiovascular exam: PRESENT: RRR. ABSENT: diastolic murmur, rubs, systolic murmur Vascular exam: PRESENT: normal capillary refill Extremities exam: PRESENT: full ROM. ABSENT: calf tenderness, clubbing, pedal edema Musculoskeletal exam: PRESENT: ambulatory Neurological exam: PRESENT: alert, awake, oriented to person, oriented to place, oriented to time, oriented to situation, CN II-XII grossly intact. ABSENT: motor sensory deficit Psychiatric exam: PRESENT: appropriate affect, normal mood. ABSENT: homicidal ideation, suicidal ideation Skin exam: PRESENT: dry, intact, warm. ABSENT: cyanosis, rash Results Laboratory Results: 02/25/20 05:31 02/23/20 06:11 02/24/20 02/24/20 02/25/20 10:32 16:40 05:31 WBC 12.4 H 11.1 H RBC 2.38 L 2.40 L Hgb 8.2 L 8.3 L Hct 23.4 L 23.5 L MCV 98 H D 98 H MCH 34.4 H 34.6 H MCHC 35.0 35.4 RDW 23.5 H 22.9 H Plt Count 409 395 Seg Neutrophils % Not Reportable Blood Type O POSITIVE Antibody Screen NEGATIVE Assessment and Plan - Diagnosis (1) Sickle cell pain crisis Is this a current diagnosis for this admission?: Yes Plan: Pain is slightly improved today. Presents with right hip pain Elevated LDH, elevated reticulocyte count and bilirubin Retirc count down slightly; 10.8-> 8.8 Continue IV hydration with LR Manage pain with Dilaudid Continue home dose Folic acid and Hydroxyurea Nonpharmacological/supportive care. (2) Sickle cell anemia Qualifiers: Sickle-cell associated disorders: with unspecified crisis Qualified Code(s): D57.00 - Hb-SS disease with crisis, unspecified; D57.0 - Hb-SS disease with crisis Is this a current diagnosis for this admission?: Yes Plan: Hgb 8.5-> 7.7-> 6.9-> 8.2-> 8.3 Likely due to hemoconcentration other cell lines also have increased Has some signs of hemolysis with elevated bilirubin reticulocyte count and LDH S/p 1 unit PRBC Follow CBC (3) Headache Qualifiers: Headache type: unspecified Is this a current diagnosis for this admission?: Yes Plan: Possibly rebound headache r/t narcotic medications. Responded well to trial Fioricet yesterday; will continue PRN. Tylenol as needed. Nonpharmacological interventions. (4) Dizziness Is this a current diagnosis for this admission?: Yes Plan: Denies currently. Associated w/ headache. Possible replaced to narcotic medications. Meclizine prn. (5) Thrombocytosis Is this a current diagnosis for this admission?: Yes Plan: Resolved; PLT 498-> 442 -> 374-> 395 Secondary to hemoconcentration Receiving IV fluids. Continue to monitor CBC (6) Leukocytosis, unspecified Qualifiers: Leukocytosis type: unspecified Qualified Code(s): D72.829 - Elevated white blood cell count, unspecified Is this a current diagnosis for this admission?: Yes Plan: WBC trending down; 15.1-> 12.6-> 10.9 Afebrile >48 hrs perfect yesterday Patient has no sign of infection at this point Likely due to hemoconcentration from dehydration Blood cultures are negative at 48 hours. No indications for antibiotic therapy at this time. Follow-up CBC (7) Dehydration Is this a current diagnosis for this admission?: Yes Plan: Resolved Secondary to poor p.o. intake; patient states decreased r/t pain. Denies N/V/D Encourage po fluids Continue IVF - Time Time Spent with patient: 15-24 minutes Medications reviewed and adjusted accordingly: Yes Anticipated Discharge Disposition: Home, Self Care Anticipated Discharge Timeframe: within 48 hours
[2020-02-25] MEDS: FOLIC ACID 1 MG TABLET PO SCH (11:10)
[2020-02-25] MEDS: HYDROXYUREA 500 MG CAPSULE PO SCH (11:10)
[2020-02-25] MEDS: ENOXAPARIN SODIUM INJ 40 MG/0.4 ML DISP.SYRIN SUBCUT SCH (11:11)
[2020-02-25] MEDS: FAMOTIDINE 20 MG TABLET PO SCH ×2 (11:12→21:26)
[2020-02-25] MEDS: MECLIZINE HCL 25 MG TABLET PO PRN (21:56)
[2020-02-26] MEDS: RINGERS SOLUTION,LACTATED 1,000 ML IV PRN ×2 (06:33→17:21)
[2020-02-26] MEDS: HYDROXYUREA 500 MG CAPSULE PO SCH (09:55)
[2020-02-26] MEDS: FOLIC ACID 1 MG TABLET PO SCH (09:55)
[2020-02-26] MEDS: BUTALB/ACETAMINOPHEN/CAFFEINE 1 TAB EACH PO PRN (09:55)
[2020-02-26] MEDS: FAMOTIDINE 20 MG TABLET PO SCH ×2 (09:55→21:50)
[2020-02-26] MEDS: MECLIZINE HCL 25 MG TABLET PO PRN ×2 (09:57→17:17)
[2020-02-26] MEDS: ENOXAPARIN SODIUM INJ 40 MG/0.4 ML DISP.SYRIN SUBCUT SCH (10:02)
--- NOTE | 2020-02-26 15:51 | PDOC PROGRESS REPORT ---
Subjective Date:: 02/26/20 Subjective:: VIBHA ROWLAND is a 24 year old male with a history of right hip pain which started about 12 hours prior to presentation. Patient states that initially he was trying to manage his pain with his home medications became unbearable so presented to the ER. Pain is described as aching, 9/10 intensity with no clear aggravating or relieving factors. He denies any fever, chills, chest pain, shortness of breath, headache, change in his vision, weakness of extremities, change in the color of his urine. Also denies any cough, runny nose, congestion, or skin rash. 02/26/2020. No acute events overnight, patient is complaining of persistent frontal headache since receiving transfusion associated with vertigo, right hip pain is minimal, patient is able to ambulate but unfortunately due to vertigo does not ambulate much, p.o. tolerant, having normal bowel and bladder movements. Denies any fever, chills, nausea, vomiting. Reason For Visit: SICKLE CELL CRISIS Physical Exam Vital Signs: Temp Pulse Resp BP Pulse Ox 97.9 F 72 16 127/50 H 99 02/26/20 10:00 02/26/20 08:56 02/26/20 08:56 02/26/20 08:56 02/26/20 08:56 Intake & Output 02/25/20 02/26/20 02/27/20 06:59 06:59 06:59 Intake Total 3800 3448 Balance 3800 3448 Weight 65.6 kg 65.6 kg General appearance: PRESENT: no acute distress, well-developed, well-nourished Head exam: PRESENT: atraumatic, normocephalic Neck exam: ABSENT: carotid bruit, JVD, lymphadenopathy, thyromegaly Respiratory exam: PRESENT: clear to auscultation oxana. ABSENT: rales, rhonchi, wheezes GI/Abdominal exam: PRESENT: normal bowel sounds, soft. ABSENT: distended, guarding, mass, organolmegaly, rebound, tenderness Extremities exam: PRESENT: full ROM, other - Right hand pain on external rotation.. ABSENT: calf tenderness, clubbing, pedal edema Neurological exam: PRESENT: alert, awake, oriented to person, oriented to place, oriented to time, oriented to situation, CN II-XII grossly intact. ABSENT: motor sensory deficit Results Laboratory Results: 02/25/20 05:31 02/23/20 06:11 Assessment and Plan - Diagnosis (1) Sickle cell pain crisis Is this a current diagnosis for this admission?: Yes Plan: Pain is slightly improved today. Presents with right hip pain Elevated LDH, elevated reticulocyte count and bilirubin Retirc count down slightly; 10.8-> 8.8 Continue IV hydration with LR Manage pain with Dilaudid Continue home dose Folic acid and Hydroxyurea Nonpharmacological/supportive care. (2) Dizziness Is this a current diagnosis for this admission?: Yes Plan: Denies currently. Associated w/ headache. Possible replaced to narcotic medications. Meclizine prn. (3) Headache Qualifiers: Headache type: unspecified Is this a current diagnosis for this admission?: Yes Plan: Possibly rebound headache r/t narcotic medications. Responded well to trial Fioricet yesterday; will continue PRN. Tylenol as needed. Nonpharmacological interventions. (4) Leukocytosis, unspecified Qualifiers: Leukocytosis type: unspecified Qualified Code(s): D72.829 - Elevated white blood cell count, unspecified Is this a current diagnosis for this admission?: Yes Plan: WBC trending down; 15.1-> 12.6-> 10.9 Afebrile >48 hrs perfect yesterday Patient has no sign of infection at this point Likely due to hemoconcentration from dehydration Blood cultures are negative at 48 hours. No indications for antibiotic therapy at this time. Follow-up CBC (5) Thrombocytosis Is this a current diagnosis for this admission?: Yes Plan: Resolved; PLT 498-> 442 -> 374-> 395 Secondary to hemoconcentration Receiving IV fluids. Continue to monitor CBC (6) Dehydration Is this a current diagnosis for this admission?: Yes Plan: Resolved Secondary to poor p.o. intake; patient states decreased r/t pain. Denies N/V/D Encourage po fluids Continue IVF (7) Sickle cell anemia Qualifiers: Sickle-cell associated disorders: with unspecified crisis Qualified Cod e(s): D57.00 - Hb-SS disease with crisis, unspecified; D57.0 - Hb-SS disease with crisis Is this a current diagnosis for this admission?: Yes Plan: Hgb 8.5-> 7.7-> 6.9-> 8.2-> 8.3 Likely due to hemoconcentration other cell lines also have increased Has some signs of hemolysis with elevated bilirubin reticulocyte count and LDH S/p 1 unit PRBC Follow CBC - Time Time Spent with patient: 25-34 minutes Anticipated Discharge Disposition: Home, Self Care Anticipated Discharge Timeframe: within 48 hours
[2020-02-26] MEDS: KETOROLAC TROMETHAMINE INJ/PF 30 MG/1 ML SDV IV PRN (17:17)
--- NOTE | 2020-02-26 18:50 | RADIOLOGY REPORT (SQ) ---
EXAM DESCRIPTION: HIP RIGHT AP/LATERAL IMAGES COMPLETED DATE/TIME: 02/26/2020 4:11 pm REASON FOR STUDY: Hip pain, HX SCD. Rule out osteonecrosis. COMPARISON: None. NUMBER OF VIEWS: Two views. TECHNIQUE: AP pelvis and additional frog legview of the right hip. LIMITATIONS: None. FINDINGS: MINERALIZATION: Normal. RIGHT HIP: No fracture or dislocation. No worrisome bone lesions. LEFT HIP: No fracture or dislocation. No worrisome bone lesions. Limited views. PUBIS AND ISCHIUM: No fracture. PELVIS: No fracture. SACRUM: No fracture or dislocation. No worrisome bone lesions. LOWER LUMBAR SPINE: No fracture or dislocation. No worrisome bone lesions. No significant disc disea se. SOFT TISSUES: No findings. OTHER: No other significant finding. IMPRESSION: NEGATIVE STUDY OF THE RIGHT HIP. NO RADIOGRAPHIC EVIDENCE OF ACUTE INJURY. TECHNICAL DOCUMENTATION: JOB ID: [id number] [employer]- All Rights Reserved Reading location - IP/workstation name: [email or web address]
[2020-02-27] MEDS: KETOROLAC TROMETHAMINE INJ/PF 30 MG/1 ML SDV IV PRN ×3 (02:27→18:11)
[2020-02-27] MEDS: RINGERS SOLUTION,LACTATED 1,000 ML IV PRN ×3 (02:28→21:02)
[2020-02-27 07:45] LABS: HEMATOCRIT 21.4 % (37.9-51.0); MEAN CORPUSCULAR HEMOGLOBIN 34.2 pg (27.0-33.4); MEAN CORPUSCULAR HGB CONC 34.6 g/dL (32.0-36.0); MEAN CORPUSCULAR VOLUME 99 fl (80-97); PLATELET COUNT 390 10^3/uL (150-450); RED BLOOD COUNT 2.16 10^6/uL (4.35-5.55); RED CELL DISTRIBUTION WIDTH 22.4 % (11.5-14.0)
[2020-02-27 08:04] LABS: ANION GAP 10 (5-19); BLOOD UREA NITROGEN 8 mg/dL (7-20); CALCIUM 9.1 mg/dL (8.4-10.2); CARBON DIOXIDE 26 mmol/L (22-30); CHLORIDE 105 mmol/L (98-107); GLUCOSE 71 mg/dL (75-110); POTASSIUM 3.8 mmol/L (3.6-5.0)
[2020-02-27 08:05] LABS: HEMOGLOBIN 7.4 g/dL (13.5-17.0)
[2020-02-27] MEDS: ENOXAPARIN SODIUM INJ 40 MG/0.4 ML DISP.SYRIN SUBCUT SCH (09:57)
[2020-02-27] MEDS: FOLIC ACID 1 MG TABLET PO SCH (09:57)
[2020-02-27] MEDS: FAMOTIDINE 20 MG TABLET PO SCH ×2 (09:57→21:02)
[2020-02-27] MEDS: HYDROXYUREA 500 MG CAPSULE PO SCH (09:57)
[2020-02-27] MEDS: MECLIZINE HCL 25 MG TABLET PO PRN (10:05)
[2020-02-27] MEDS ORDERED: ONDANSETRON HCL INJ/PF 4 MG/2 ML SDV IV PRN (15:00)
[2020-02-27] MEDS: HYDROMORPHONE HCL INJ/PF 2 MG/ML AMPULE IV PRN (15:12)
[2020-02-27] MEDS ORDERED: MECLIZINE HCL 25 MG TABLET PO PRN (15:12)
--- NOTE | 2020-02-27 15:58 | RADIOLOGY REPORT (SQ) ---
EXAM DESCRIPTION: CT HEAD WITHOUT IMAGES COMPLETED DATE/TIME: 02/27/2020 3:50 pm REASON FOR STUDY: headache COMPARISON: None. TECHNIQUE: Axial images acquired through the brain without intravenous contrast. Images reviewed wi th bone, brain and subdural windows. Additional sagittal and coronal reconstructions were generated. Images stored on PACS. All CT scanners at this facility use dose modulation, iterative reconstruction, and/or weight based d osing when appropriate to reduce radiation dose to as low as reasonably achievable (ALARA). [facility]: Dose Right [facility]: CareDose [facility]: Dose Right [facility]: Teradose 4D [facility]: GET IT Mobile RADIATION DOSE: CT Rad equipment meets quality standard of care and radiation dose reduction techniq ues were employed. CTDIvol: 48.9 mGy. DLP: 960 mGy-cm. mGy. LIMITATIONS: None. FINDINGS: VENTRICLES: Normal size and contour. CEREBRUM: No masses. No hemorrhage. No midline shift. No evidence for acute infarction. Normal gra y/white matter differentiation. No areas of low density in the white matter. CEREBELLUM: No masses. No hemorrhage. No alteration of density. No evidence for acute infarction. EXTRAAXIAL SPACES: No fluid collections. No masses. ORBITS AND GLOBE: No intra- or extraconal masses. Normal contour of globe without masses. CALVARIUM: No fracture. PARANASAL SINUSES: No fluid or mucosal thickening. SOFT TISSUES: No mass or hematoma. OTHER: No other significant finding. IMPRESSION: NORMAL BRAIN CT WITHOUT CONTRAST. EVIDENCE OF ACUTE STROKE: NO. COMMENT: Quality ID # [id number]: Final reports with documentation of one or more dose reduction techniques (e.g., Automated exposure control, adjustment of the mA and/or kV according to patient size, use of iterative reconstruction technique) TECHNICAL DOCUMENTATION: JOB ID: [id number] 2010 [employer]- All Rights Reserved Reading location - IP/workstation name: [email or web address]
--- NOTE | 2020-02-27 17:08 | PDOC PROGRESS REPORT ---
Subjective Date:: 02/27/20 Subjective:: VIBHA ROWLAND is a 24 year old male with a history of right hip pain which started about 12 hours prior to presentation. Patient states that initially he was trying to manage his pain with his home medications became unbearable so presented to the ER. Pain is described as aching, 9/10 intensity with no clear aggravating or relieving factors. He denies any fever, chills, chest pain, shortness of breath, headache, change in his vision, weakness of extremities, change in the color of his urine. Also denies any cough, runny nose, congestion, or skin rash. 02/26/2020. No acute events overnight, patient is complaining of persistent frontal headache since receiving transfusion associated with vertigo, right hip pain is minimal, patient is able to ambulate but unfortunately due to vertigo does not ambulate much, p.o. tolerant, having normal bowel and bladder movements. Denies any fever, chills, nausea, vomiting. 02/27/2020. No acute events overnight. Headache is improving with Toradol, patient still complaining of severe vertigo, right hip pain has resolved, denies any fever, chills, nausea, vomiting, diarrhea, constipation or any urinary symptoms. Reason For Visit: SICKLE CELL CRISIS Physical Exam Vital Signs: Temp Pulse Resp BP Pulse Ox 97.9 F 73 19 141/64 H 100 02/27/20 15:15 02/27/20 15:15 02/27/20 15:15 02/27/20 15:15 02/27/20 15:15 Intake & Output 02/26/20 02/27/20 02/28/20 06:59 06:59 06:59 Intake Total 3448 2313 948 Output Total 0 Balance 3448 2313 948 Weight 65.6 kg 66.2 kg General appearance: PRESENT: no acute distress, well-developed, well-nourished Head exam: PRESENT: atraumatic, normocephalic Respiratory exam: PRESENT: clear to auscultation oxana. ABSENT: rales, rhonchi, wheezes Cardiovascular exam: PRESENT: RRR. ABSENT: diastolic murmur, rubs, systolic murmur GI/Abdominal exam: PRESENT: normal bowel sounds, soft. ABSENT: distended, guarding, mass, organolmegaly, rebound, tenderness Neurological exam: PRESENT: alert, awake, oriented to person, oriented to place, oriented to time, oriented to situation, CN II-XII grossly intact. ABSENT: mot or sensory deficit Results Laboratory Results: 02/27/20 07:12 02/27/20 07:12 02/27/20 02/27/20 07:12 07:12 WBC 8.0 RBC 2.16 L Hgb 7.4 L Hct 21.4 L MCV 99 H MCH 34.2 H MCHC 34.6 RDW 22.4 H Plt Count 390 Sodium 140.8 Potassium 3.8 Chloride 105 Carbon Dioxide 26 Anion Gap 10 BUN 8 Creatinine 0.66 Est GFR ( Amer) > 60 Glucose 71 L Calcium 9.1 02/22/20 07:55 Blood Blood Culture - Final NO GROWTH IN 5 DAYS 02/22/20 06:55 Blood Blood Culture - Final NO GROWTH IN 5 DAYS Impressions: Hip/Pelvis X-Ray 02/26/20 00:00 IMPRESSION: NEGATIVE STUDY OF THE RIGHT HIP. NO RADIOGRAPHIC EVIDENCE OF ACUTE INJURY. Head CT 02/27/20 15:11 IMPRESSION: NORMAL BRAIN CT WITHOUT CONTRAST. EVIDENCE OF ACUTE STROKE: NO. Assessment and Plan - Diagnosis (1) Sickle cell pain crisis Is this a current diagnosis for this admission?: Yes Plan: Right hip pain has resolved. Headache is improving. Mild drop in hemoglobin no acute sign of bleeding. Presented with right hip pain, Elevated LDH, elevated reticulocyte count and bilirubin Retirc count down slightly; 10.8-> 8.8 Continue fluid resuscitation guided by volume status. Opioid and nonopioid analgesics. Monitor for respiratory depression. Continue folic acid and hydroxyurea. Monitor H&H. (2) Vertigo Is this a current diagnosis for this admission?: Yes Plan: Complaining of severe vertigo. Started on this admission. Denies any hearing loss, focal neurological symptoms, earache, ear discharge or any recent upper respiratory infection. CT head negative for any acute abnormalities. Quincy-Hallpike test negative. No nystagmus. Continue meclizine, fall precautions, supportive measures. (3) Headache Qualifiers: Headache type: unspecified Is this a current diagnosis for this admission?: Yes Plan: Possibly rebound headache r/t narcotic medications. Responded with Toradol. DC Percocet, minimize narcotics if possible. CT head negative for any acute abnormalities. Negative for any focal neurological symptoms. Toradol and Tylenol as needed. (4) Leukocytosis, unspecified Qualifiers: Leukocytosis type: unspecified Qualified Code(s): D72.829 - Elevated white blood cell count, unspecified Is this a current diagnosis for this admission?: Yes Plan: Resolved. Afebrile. Patient has no sign of infection at this point No indications for antibiotic therapy at this time. Follow-up CBC (5) Thrombocytosis Is this a current diagnosis for this admission?: Yes Plan: Resolved. (6) Dehydration Is this a current diagnosis for this admission?: Yes Plan: Resolved Secondary to poor p.o. intake; patient states decreased r/t pain. 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 No sign of acute bleeding. Likely hemodilution. Has some signs of hemolysis with elevated bilirubin reticulocyte count and LDH S/p 1 unit PRBC Follow CBC - Time Time Spent with patient: 25-34 minutes Medications reviewed and adjusted accordingly: Yes Anticipated Discharge Disposition: Home, Self Care Anticipated Discharge Timeframe: within 48 hours
[2020-02-28] MEDS: HYDROMORPHONE HCL INJ/PF 2 MG/ML AMPULE IV PRN (00:46)
[2020-02-28] MEDS: RINGERS SOLUTION,LACTATED 1,000 ML IV PRN (05:56)
[2020-02-28 07:17] LABS: HEMATOCRIT 21.2 % (37.9-51.0); MEAN CORPUSCULAR HEMOGLOBIN 34.2 pg (27.0-33.4); MEAN CORPUSCULAR VOLUME 98 fl (80-97); PLATELET COUNT 361 10^3/uL (150-450); RED BLOOD COUNT 2.18 10^6/uL (4.35-5.55); RED CELL DISTRIBUTION WIDTH 21.5 % (11.5-14.0); WHITE BLOOD COUNT 8.5 10^3/uL (4.0-10.5)
[2020-02-28 08:13] LABS: ABSOLUTE LYMPHOCYTES# (MANUAL) 1.4 10^3/uL (0.5-4.7); ABSOLUTE MONOCYTES # (MANUAL) 1.2 10^3/uL (0.1-1.4); BASOPHILS % (MANUAL) 0 % (0-2); EOSINOPHILS % (MANUAL) 9 % (0-6); LYMPHOCYTES % (MANUAL) 13 % (13-45); MONOCYTES % (MANUAL) 14 % (3-13); NUCLEATED RED BLOOD CELLS 3 /100 WBC (0); SEGMENTED NEUTROPHILS % (MAN) 60 % (42-78); TOTAL CELLS COUNTED 100
[2020-02-28 08:16] LABS: ANISOCYTOSIS 3+; OVALOCYTES 1+; POIKILOCYTOSIS 2+; POLYCHROMASIA SLIGHT
[2020-02-28 08:17] LABS: PLATELET COMMENT ADEQUATE; SICKLE RED CELLS SLIGHT; STOMATOCYTES 1+; TARGET CELLS 2+
[2020-02-28 08:19] LABS: HEMOGLOBIN 7.4 g/dL (13.5-17.0)
[2020-02-28] MEDS: FAMOTIDINE 20 MG TABLET PO SCH (10:28)
[2020-02-28] MEDS: ENOXAPARIN SODIUM INJ 40 MG/0.4 ML DISP.SYRIN SUBCUT SCH (10:28)
[2020-02-28] MEDS: HYDROXYUREA 500 MG CAPSULE PO SCH (10:28)
[2020-02-28] MEDS: FOLIC ACID 1 MG TABLET PO SCH (10:28)
[2020-02-28 12:22] VITALS: BP 117/58
== END 2020-02-28 12:29 | disposition home or self-care (01) | DRG 812 ==
LOC: ER 00:18 → EH 06:26 → 5 08:54 → OBSVTOIN 02-25 10:13
PROVIDERS: ADMIT Student in an Organized Health Care Education/Training Program; ATTEND Internal Medicine
PROC: 30233N1 Transfusion of Nonautologous Red Blood Cells into Peripheral Vein, Percutaneous Approach (ICD-10-PCS; principal; 2020-02-24)
DX: D57.00 Hb-SS disease with crisis, unspecified (principal); E86.0 Dehydration; D72.829 Elevated white blood cell count, unspecified; D47.3 Essential (hemorrhagic) thrombocythemia; R51.9 Headache, unspecified; R42 Dizziness and giddiness; M25.551 Pain in right hip; Z88.8 Allergy status to other drugs, medicaments and biological substances; Z90.81 Acquired absence of spleen
CPT/HCPCS: 36415; 36430; 70450; 80048; 80053; 83615; 85025; 85027; 85045; 86850; 86900; 86901; 86902; 86920; 86922; 87040; 96361; 96374; 96375; 96376; 99285; G0378; J1170; J1885; J2405; J3490; J7120; P9016